=== PATIENT | female | born 1985 | race American Indian/Alaskan Native ===

== ENCOUNTER 2016-09-08 16:24 | Emergency (ER) | payer MEDICAID ==
--- NOTE | 2016-09-08 16:43 | Emergency Department Report ---
Entered by ANMOL THAO, acting as scribe for YULI FINN NP. Chief Complaint: Seizure Stated Complaint: SEIZURE Time Seen by Provider: 09/08/16 16:35 - HPI History of Present Illness: 31 y/o presents to the ED c/o seizures that began last night. Associated symptoms include knee pain and chest pain. Denies fever and chills. Patient states she has 2 seizures last night and her last seizure episode was 1 month ago. Out of seizure meds x 3 days. Taken 2 doses doses today. Denies seizure activity today. No alleviating or aggravating symptoms. NKDA. - ROS Review of Systems: +seizure +knee pain +chest pain -fever -chills - Exam Vital Signs: Vital Signs 09/08/16 16:31 Temperature 99.3 F Pulse Rate 104 H Respiratory 17 Rate Blood Pressure 107/77 O2 Sat by Pulse 100 Oximetry Physical Exam: pt looks well, non toxic. obese alert flat affect slow to respond to questions, but appropriate MSE screening note: Focused history and physical exam performed. Due to findings the following was ordered: labs, xr ED Disposition for MSE Condition: Stable This documentation as recorded by the scribe,ANMOL THAO,accurately reflects the service I personally performed and the decisions made by ,YULI FINN, TOUR MANAGER.
[2016-09-08 17:24] LABS: Hematocrit 40.6 % (30.3-42.9); Hemoglobin 13.1 gm/dl (10.1-14.3); Mean Corpuscular HGB Conc 32 % (30-34); Mean Corpuscular Hemoglobin 28 pg (28-32); Mean Corpuscular Volume 87 fl (79-97); Red Blood Count 4.67 M/mm3 (3.65-5.03); Red Cell Distribution Width 13.9 % (13.2-15.2); White Blood Count 5.3 K/mm3 (4.5-11.0)
[2016-09-08 17:36] LABS: Platelet Count 148 K/mm3 (140-440)
[2016-09-08 17:37] LABS: Alanine Aminotransferase 20 units/L (7-56); Albumin 4.4 g/dL (3.9-5); Albumin/Globulin Ratio 1.3 %; Alkaline Phosphatase 76 units/L (35-129); Anion Gap 23 mmol/L; Blood Urea Nitrogen 16 mg/dL (7-17); Carbon Dioxide 14 mmol/L (22-30); Chloride 105.7 mmol/L (98-107); Glucose 101 mg/dL (65-100); Potassium 3.7 mmol/L (3.6-5.0); Sodium 139 mmol/L (137-145); Total Protein 7.7 g/dL (6.3-8.2)
[2016-09-08 17:52] LABS: Creatine Kinase 2696 units/L (30-135)
[2016-09-08] MEDS ORDERED: NACL 0.9% 1000 ML 1,000 ML IV ONE ×2 (21:46→23:29)
[2016-09-08] MEDS ORDERED: KEPPRA 500 MG in D5W 100 ML IV ONE (21:54)
--- NOTE | 2016-09-08 21:59 | Emergency Department Report ---
ED Seizure HPI - General Chief Complaint: Seizure Stated Complaint: SEIZURE Time Seen by Provider: 09/08/16 16:35 Source: patient Mode of arrival: Ambulatory Limitations: No Limitations - History of Present Illness Initial Comments: PATIENT BROUGHT BY EMS AFTER HAVING SEIZURE TODAY. SHE STATED THAT SHE HAD TWO SEIZURES TODAY MD Complaint: seizure -: This morning Seizure History: known seizure disorder Place: home Possible Precipitating Event: none Associated Symptoms: denies other symptoms - Related Data Home Medications Medication Instructions Recorded Confirmed Last Taken LORazepam [Ativan] 2 mg PO Q12HR PRN 11/25/15 11/25/15 Unknown OXcarbazepine [Trileptal] 600 mg PO HS 11/25/15 11/25/15 Unknown Perphenazine 4 mg PO DAILY 11/25/15 11/25/15 Unknown Topiramate [Topamax] 100 mg PO TID 11/25/15 11/25/15 Unknown diphenhydrAMINE [Benadryl CAP] 50 mg PO HS 11/25/15 11/25/15 Unknown Allergies Allergy/AdvReac Type Severity Reaction Status Date / Time No Known Allergies Allergy Verified 09/08/16 16:27 ED Review of Systems ROS: Stated complaint: SEIZURE Other details as noted in HPI Comment: All other systems reviewed and negative ED Past Medical Hx - Past Medical History Hx Seizures: Yes Hx Psychiatric Treatment: Yes (Pt currently has a therapist and psychiatrist) Additional medical history: Schizophrenia/bipolar. OBESITY - Surgical History Past Surgical History?: No - Social History Smoking Status: Never Smoker Substance Use Type: Prescribed - Medications Home Medications: Home Medications Medication Instructions Recorded Confirmed Last Taken Type LORazepam [Ativan] 2 mg PO Q12HR PRN 11/25/15 11/25/15 Unknown History OXcarbazepine [Trileptal] 600 mg PO HS 11/25/15 11/25/15 Unknown History Perphenazine 4 mg PO DAILY 11/25/15 11/25/15 Unknown History Topiramate [Topamax] 100 mg PO TID 11/25/15 11/25/15 Unknown History diphenhydrAMINE [Benadryl CAP] 50 mg PO HS 11/25/15 11/25/15 Unknown History ED Physical Exam - General Limitations: No Limitations ED Course Vital Signs 09/08/16 09/08/16 09/09/16 16:31 21:40 00:13 Temperature 99.3 F 98 F 99 F Pulse Rate 104 H 97 H 88 Respiratory 17 18 18 Rate Blood Pressure 107/77 Blood Pressure 103/78 131/85 [Left] O2 Sat by Pulse 100 96 99 Oximetry - Reevaluation(s) Reevaluation #1: 09/09/16 01:03 PATIENT OBSERVED IN THE ER , NO FURHER SEIZURE NOTICED. RECEIVED 500 MG OF KEPPRA ED Medical Decision Making - Lab Data Result diagrams: 09/08/16 16:44 09/08/16 16:44 Critical care attestation.: If time is entered above; I have spent that time in minutes in the direct care of this critically ill patient, excluding procedure time. ED Disposition Clinical Impression: Seizure, Rhabdomyolysis Disposition: DC-01 TO HOME OR SELFCARE Is pt being admited?: No Does the pt Need Aspirin: No Condition: Stable Instructions: Epilepsy (ED), Rhabdomyolysis (ED) Referrals: PRIMARY CARE, [Primary Care Provider] - 3-5 Days Time of Disposition: 01:05
[2016-09-09 00:14] VITALS: BP 131/85
[2016-09-09 02:19] LABS: Urine Drugs of Abuse Note Disclamer
[2016-09-09 02:36] LABS: Bilirubin,Urine NEG (Negative); Blood,Urine NEG (Negative); Ketones,Urine 80 mg/dL (Negative); Leukocyte Esterase,Urine TR (Negative); Mucus,Urine 3+ /HPF; Nitrite,Urine NEG (Negative)
--- NOTE | 2016-09-09 07:58 | XRay Report ---
ROUTINE CHEST, TWO VIEWS: HISTORY: Palpitations. The trachea, heart, mediastinal contour, lung [place] and bony thorax are unremarkable. IMPRESSION: Unremarkable chest x-ray.
--- NOTE | 2016-09-09 07:59 | XRay Report ---
RIGHT KNEE, 3 views: History: Right knee pain. Normal bone mineralization. Minimal osteoarthritic spurring is noted in the medial compartment. The lateral compartment and patellofemoral space are within normal limits. No evidence for fracture, bone lesion or large joint effusion. IMPRESSION: Minimal osteoarthritic changes.
== END 2016-09-09 03:03 | disposition home or self-care (01) ==
LOC: ED 16:24
DX: G40.909 Epilepsy, unspecified, not intractable, without status epilepticus (principal); M62.82 Rhabdomyolysis; F20.9 Schizophrenia, unspecified; F31.9 Bipolar disorder, unspecified
CPT/HCPCS: 36415; 71020; 73562; 80053; 80307; 81001; 82550; 84484; 84703; 85025; 93005; 93010; 96365; 96366; 99284; J1953; J7030

== ENCOUNTER 2016-12-06 08:01 | Emergency (ER) | payer MEDICAID ==
[2016-12-06 09:25] LABS: Basophils % (Auto) 0.2 % (0.0-1.8); Eosinophils % (Auto) 0.1 % (0.0-4.3); Hemoglobin 12.1 gm/dl (10.1-14.3); Mean Corpuscular HGB Conc 33 % (30-34); Mean Corpuscular Hemoglobin 28 pg (28-32); Mean Corpuscular Volume 87 fl (79-97); Platelet Count 179 K/mm3 (140-440); Red Blood Count 4.28 M/mm3 (3.65-5.03); Red Cell Distribution Width 14.7 % (13.2-15.2); White Blood Count 7.6 K/mm3 (4.5-11.0)
[2016-12-06 09:42] LABS: Anion Gap 22 mmol/L; Blood Urea Nitrogen 15 mg/dL (7-17); Calcium 9.2 mg/dL (8.4-10.2); Carbon Dioxide 17 mmol/L (22-30); Chloride 108.8 mmol/L (98-107); Glucose 92 mg/dL (65-100); Potassium 4.9 mmol/L (3.6-5.0); Sodium 143 mmol/L (137-145)
[2016-12-06 11:11] LABS: Bilirubin,Urine NEG (Negative); Blood,Urine SM (Negative); Ketones,Urine NEG (Negative); Leukocyte Esterase,Urine NEG (Negative); Mucus,Urine FEW /HPF; Nitrite,Urine NEG (Negative); Protein,Urine <15 mg/dL mg/dL (Negative); Urobilinogen,Urine < 2.0 mg/dL (<2.0)
[2016-12-06 11:15] LABS: WBC,Urine < 1.0 /HPF (0.0-6.0)
[2016-12-06] MEDS ORDERED: ATIVAN IV ONE (11:26)
--- NOTE | 2016-12-06 11:31 | Emergency Department Report ---
ED Seizure HPI - General Chief Complaint: Seizure Stated Complaint: SEIZURE Time Seen by Provider: 12/06/16 11:09 Source: EMS Mode of arrival: Stretcher Limitations: No Limitations - History of Present Illness Initial Comments: Patient is a 31 years old history of seizure brought by EMS after 2 witnessed seizure this morning, patient lived with her friends will does not know what medication she is on. When I examining the patient is still post ictal, she noted that she is in the ER and notices the morning time. Patient answering questions very slowly. Prescription moving around ignoring the instruction not to leave the bed. Per nurse reported that she was told by EMS that patient does have a psychiatric problem also. MD Complaint: seizure -: Sudden Description of Episode: loss of consciousness, tonic-clonic movement, bladder incontinence, post-event confusion Witnessed:: Yes Trauma: No Seizure History: known seizure disorder Place: home Associated Symptoms: denies other symptoms - Related Data Home Medications Medication Instructions Recorded Confirmed Last Taken Perphenazine 16 mg PO DAILY 11/25/15 12/06/16 1 Day Ago Trihexyphenidyl [Artane Tab] 2 mg PO TID 12/06/16 12/06/16 Unknown Previous Rx's Medication Instructions Recorded Last Taken Type OXcarbazepine [Oxtellar XR] 150 mg PO QDAY #30 tab.er.24h 09/19/16 Unknown Rx OXcarbazepine [Oxtellar XR] 600 mg PO DAILY #30 tab.er.24h 09/19/16 Unknown Rx Topiramate [Topamax] 100 mg PO TID #90 tablet 09/19/16 Unknown Rx diphenhydrAMINE [Benadryl CAP] 50 mg PO HS #10 capsule 09/19/16 Unknown Rx Allergies Allergy/AdvReac Type Severity Reaction Status Date / Time No Known Allergies Allergy Verified 09/08/16 16:27 ED Review of Systems ROS: Stated complaint: SEIZURE Other details as noted in HPI Comment: Unobtainable due to pts medical conditions ED Past Medical Hx - Past Medical History Hx Seizures: Yes Hx Psychiatric Treatment: Yes (Pt currently has a therapist and psychiatrist) Additional medical history: Schizophrenia/bipolar. OBESITY - Social History Smoking Status: Unknown if ever smoked - Medications Home Medications: Home Medications Medication Instructions Recorded Confirmed Last Taken Type Perphenazine 16 mg PO DAILY 11/25/15 12/06/16 1 Day Ago History OXcarbazepine [Oxtellar XR] 150 mg PO QDAY #30 tab.er.24h 09/19/16 12/06/16 Unknown Rx OXcarbazepine [Oxtellar XR] 600 mg PO DAILY #30 tab.er.24h 09/19/16 12/06/16 Unknown Rx Topiramate [Topamax] 100 mg PO TID #90 tablet 09/19/16 12/06/16 Unknown Rx diphenhydrAMINE [Benadryl CAP] 50 mg PO HS #10 capsule 09/19/16 12/06/16 Unknown Rx Trihexyphenidyl [Artane Tab] 2 mg PO TID 12/06/16 12/06/16 Unknown History ED Physical Exam - General Limitations: No Limitations General appearance: alert, in no apparent distress, postictal - Head Head exam: Present: atraumatic, normocephalic - Eye Eye exam: Present: normal appearance, PERRL, EOMI Pupils: Present: normal accommodation - ENT ENT exam: Present: normal exam, normal orophraynx, mucous membranes moist - Neck Neck exam: Present: normal inspection, full ROM. Absent: tenderness, meningismus - Respiratory Respiratory exam: Present: normal lung sounds bilaterally. Absent: respiratory distress, wheezes, rales, rhonchi, stridor, chest wall tenderness, accessory muscle use, decreased breath sounds, prolonged expiratory - Cardiovascular Cardiovascular Exam: Present: regular rate, normal rhythm, normal heart sounds - GI/Abdominal GI/Abdominal exam: Present: soft, normal bowel sounds. Absent: distended, tenderness, guarding, rebound, rigid, mass, bruit, pulsatile mass, hernia - Extremities Exam Extremities exam: Present: normal inspection, full ROM, normal capillary refill - Back Exam Back exam: Present: normal inspection, full ROM. Absent: tenderness, CVA tenderness (R), CVA tenderness (L), muscle spasm, paraspinal tenderness, vertebral tenderness - Neurological Exam Neurological exam: Present: altered - Skin Skin exam: Present: warm, intact, normal color ED Course Vital Signs 12/06/16 12/06/16 12/06/16 08:33 08:44 09:00 Temperature 98.0 F Pulse Rate 94 H 84 Respiratory 15 15 Rate Blood Pressure 105/61 98/63 Blood Pressure [Left] O2 Sat by Pulse 88 98 100 Oximetry 12/06/16 12/06/16 12/06/16 09:30 10:00 10:42 Temperature Pulse Rate 94 H 85 82 Respiratory 23 14 20 Rate Blood Pressure 98/63 114/74 114/74 Blood Pressure [Left] O2 Sat by Pulse 99 85 Oximetry 12/06/16 12/06/16 12/06/16 13:00 13:30 14:00 Temperature Pulse Rate Respiratory Rate Blood Pressure 114/74 93/56 93/56 Blood Pressure [Left] O2 Sat by Pulse 100 100 96 Oximetry 12/06/16 12/06/16 12/06/16 14:30 15:00 15:58 Temperature Pulse Rate 97 H Respiratory 18 Rate Blood Pressure 107/70 102/61 Blood Pressure 100/64 [Left] O2 Sat by Pulse 98 99 98 Oximetry - Reevaluation(s) Reevaluation #1: 12/06/16 18:17 Patient is awake alert and talking to her sister who just came into the ER. Her sister is stated that this is her usual mental status she is in a senior care with another pupils she forget her medication sometimes. Her sister want to take home and he stated that she will make sure that she will get her medication every day. Patient will be discharged with her sister. ED Medical Decision Making - Lab Data Result diagrams: 12/06/16 09:04 12/06/16 09:04 - Medical Decision Making No seizure observed in the ER. Discharged patient with her sister. Critical care attestation.: If time is entered above; I have spent that time in minutes in the direct care of this critically ill patient, excluding procedure time. ED Disposition Clinical Impression: Seizure Disposition: DC-01 TO HOME OR SELFCARE Is pt being admited?: No Condition: Stable Instructions: Epilepsy (ED) Referrals: PRIMARY CARE, [Primary Care Provider] - 3-5 Days
[2016-12-06] MEDS ORDERED: KEPPRA PO ONE (12:55)
[2016-12-06 13:11] LABS: Urine Drugs of Abuse Note Disclamer
[2016-12-06 18:36] VITALS: BP 113/72
== END 2016-12-06 18:35 | disposition home or self-care (01) ==
LOC: ED 08:01
DX: G40.909 Epilepsy, unspecified, not intractable, without status epilepticus (principal)
CPT/HCPCS: 36415; 80048; 80307; 81001; 81025; 82962; 85025; 96374; 99285; G0480; J2060; 80320

== ENCOUNTER 2017-05-22 04:54 | Inpatient (IN) | payer MEDICAID ==
[2017-05-22 05:50] LABS: Hematocrit 35.1 % (30.3-42.9); Hemoglobin 11.4 gm/dl (10.1-14.3); Mean Corpuscular HGB Conc 33 % (30-34); Mean Corpuscular Hemoglobin 28 pg (28-32); Mean Corpuscular Volume 86 fl (79-97); Platelet Count 191 K/mm3 (140-440); Red Cell Distribution Width 14.1 % (13.2-15.2)
[2017-05-22 06:01] LABS: BUN/Creatinine Ratio 16; Blood Urea Nitrogen 11 mg/dL (7-17); Calcium 8.7 mg/dL (8.4-10.2); Hemolysis Index 37
[2017-05-22] MEDS ORDERED: ATIVAN ONE (06:39)
[2017-05-22] MEDS ORDERED: ATIVAN IV ONE (06:42)
[2017-05-22] MEDS ORDERED: NACL 0.9% 1000 ML 1,000 ML ONE (06:43)
[2017-05-22] MEDS ORDERED: NACL 0.9% 1000 ML 1,000 ML IV ONE ×2 (06:43→20:36)
[2017-05-22] MEDS ORDERED: KEPPRA 1,000 MG/NS 0.75% 100ML 1,000 MG/100 ML BAG IV ONE ×2 (06:44→06:45)
[2017-05-22 07:23] LABS: Basophils % (Auto) 0.4 % (0.0-1.8); Eosinophils % (Auto) 0.6 % (0.0-4.3); Hematocrit 36.7 % (30.3-42.9); Hemoglobin 11.2 gm/dl (10.1-14.3); Lymphocytes # (Auto) 1.5 K/mm3 (1.2-5.4); Lymphocytes % (Auto) 24.9 % (13.4-35.0); Mean Corpuscular HGB Conc 31 % (30-34); Mean Corpuscular Hemoglobin 27 pg (28-32); Mean Corpuscular Volume 88 fl (79-97); Monocytes # (Auto) 0.6 K/mm3 (0.0-0.8); Monocytes % (Auto) 10.5 % (0.0-7.3); Platelet Count 202 K/mm3 (140-440); Red Blood Count 4.18 M/mm3 (3.65-5.03); Red Cell Distribution Width 14.7 % (13.2-15.2)
[2017-05-22 07:31] LABS: Alanine Aminotransferase 15 units/L (7-56); Albumin 3.8 g/dL (3.9-5); BUN/Creatinine Ratio 12; Blood Urea Nitrogen 11 mg/dL (7-17); Calcium 8.9 mg/dL (8.4-10.2); Hemolysis Index 40
[2017-05-22 08:02] LABS: Bacteria,Urine 1+ /HPF (Negative); Bilirubin,Urine NEG (Negative); Blood,Urine NEG (Negative); Color,Urine Yellow (Yellow); Mucus,Urine FEW /HPF; Urobilinogen,Urine < 2.0 mg/dL (<2.0)
[2017-05-22 08:08] LABS: Amphetamine Screen,Urine PRESUMPTIVE NEGATIVE; Benzodiazepines Screen,Urine PRESUMPTIVE NEGATIVE; Cannabinoid Screen,Urine PRESUMPTIVE NEGATIVE; Cocaine Screen,Urine PRESUMPTIVE NEGATIVE; Methadone Screen,Urine PRESUMPTIVE NEGATIVE; Opiate Screen,Urine PRESUMPTIVE NEGATIVE
[2017-05-22 09:26] LABS: Bacteria,Urine 1+ /HPF (Negative); Bilirubin,Urine NEG (Negative); Blood,Urine NEG (Negative); Color,Urine Yellow (Yellow); Mucus,Urine FEW /HPF; Urobilinogen,Urine < 2.0 mg/dL (<2.0)
--- NOTE | 2017-05-22 09:27 | Cat Scan Report ---
CT scan of head without IV contrast: History: Seizure. Findings: Ventricles are normal in size and midline in location. No evidence of acute ischemic, hemorrhage or mass. No extra-axial fluid collection. Normal brainstem and cerebellum. Normal sinuses and mastoid air cells. Impression: No acute intracranial abnormality.
--- NOTE | 2017-05-22 11:08 | Emergency Department Report ---
ED Seizure HPI - General Chief Complaint: Seizure Stated Complaint: SEIZURE Time Seen by Provider: 05/22/17 06:46 Source: EMS Mode of arrival: Stretcher Limitations: No Limitations - History of Present Illness Initial Comments: pt. apparently had 2 seizure episodes at home and 911 were called. when they got there she was postictal.while in the ER she had another seizure which was tonic clonic lasted about 2 minutes. I gave her 2mg of ativan and this controlled her seizure. when she woke up she says she only takes topiramate for her seizure. Complaint: seizure Onset/Timin (hours ) -: Gradual Description of Episode: tonic-clonic movement Duration of Episode: 2 -: minutes(s) Witnessed:: Yes Trauma: No Seizure History: known seizure disorder Place: home, other (ER) Possible Precipitating Event: none Associated Symptoms: denies other symptoms Treatments Prior to Arrival: none - Related Data Home Medications Medication Instructions Recorded Confirmed Last Taken Perphenazine 16 mg PO DAILY 11/25/15 05/22/17 1 Day Ago ~09/17/16 Trihexyphenidyl [Artane Tab] 2 mg PO TID 12/06/16 05/22/17 Unknown LORazepam [Ativan] 1 mg PO BID 05/22/17 05/22/17 Unknown Topiramate [Topamax] 100 mg PO BID 05/22/17 05/22/17 Unknown Previous Rx's Medication Instructions Recorded Last Taken Type OXcarbazepine [Oxtellar XR] 150 mg PO QDAY #30 tab.er.24h 09/19/16 Unknown Rx OXcarbazepine [Oxtellar XR] 600 mg PO DAILY #30 tab.er.24h 09/19/16 Unknown Rx diphenhydrAMINE [Benadryl CAP] 50 mg PO HS #10 capsule 09/19/16 Unknown Rx Allergies Allergy/AdvReac Type Severity Reaction Status Date / Time No Known Allergies Allergy Verified 09/08/16 16:27 ED Review of Systems ROS: Stated complaint: SEIZURE Other details as noted in HPI Comment: All other systems reviewed and negative ED Past Medical Hx - Past Medical History Previous Medical History?: Yes Hx Seizures: Yes Hx Psychiatric Treatment: Yes (Pt currently has a therapist and psychiatrist) Additional medical history: Schizophrenia/bipolar. OBESITY - Social History Smoking Status: Never Smoker Substance Use Type: Prescribed - Medications Home Medications: Home Medications Medication Instructions Recorded Confirmed Last Taken Type Perphenazine 16 mg PO DAILY 11/25/15 05/22/17 1 Day Ago History ~09/17/16 OXcarbazepine [Oxtellar XR] 150 mg PO QDAY #30 tab.er.24h 09/19/16 05/22/17 Unknown Rx OXcarbazepine [Oxtellar XR] 600 mg PO DAILY #30 tab.er.24h 09/19/16 05/22/17 Unknown Rx diphenhydrAMINE [Benadryl CAP] 50 mg PO HS #10 capsule 09/19/16 05/22/17 Unknown Rx Trihexyphenidyl [Artane Tab] 2 mg PO TID 12/06/16 05/22/17 Unknown History LORazepam [Ativan] 1 mg PO BID 05/22/17 05/22/17 Unknown History Topiramate [Topamax] 100 mg PO BID 05/22/17 05/22/17 Unknown History ED Physical Exam - General Limitations: No Limitations General appearance: alert, in no apparent distress - Head Head exam: Present: atraumatic, normocephalic - Eye Eye exam: Present: normal appearance - ENT ENT exam: Present: mucous membranes moist - Neck Neck exam: Present: normal inspection - Respiratory Respiratory exam: Present: normal lung sounds bilaterally. Absent: respiratory distress - Cardiovascular Cardiovascular Exam: Present: regular rate, normal rhythm. Absent: systolic murmur, diastolic murmur, rubs, gallop - GI/Abdominal GI/Abdominal exam: Present: soft, normal bowel sounds. Absent: tenderness - Rectal Rectal exam: Present: deferred - Extremities Exam Extremities exam: Present: normal inspection - Back Exam Back exam: Present: normal inspection - Neurological Exam Neurological exam: Present: alert, oriented X3 - Psychiatric Psychiatric exam: Present: normal affect, normal mood - Skin Skin exam: Present: warm, dry, intact, normal color. Absent: rash ED Course Vital Signs 05/22/17 05/22/17 05/22/17 05:08 05:15 05:17 Temperature 98.7 F Pulse Rate 93 H 99 H Respiratory 18 13 Rate Blood Pressure 96/57 99/60 96/57 Blood Pressure [Right] O2 Sat by Pulse 97 97 Oximetry 05/22/17 05/22/17 05/22/17 05:30 05:46 06:00 Temperature Pulse Rate 90 87 83 Respiratory 18 9 L 6 L Rate Blood Pressure 99/60 97/56 103/59 Blood Pressure [Right] O2 Sat by Pulse 100 100 100 Oximetry 05/22/17 05/22/17 05/22/17 06:16 06:30 06:46 Temperature Pulse Rate 83 80 126 H Respiratory 16 16 26 H Rate Blood Pressure 103/59 96/60 116/70 Blood Pressure [Right] O2 Sat by Pulse 100 100 99 Oximetry 05/22/17 05/22/17 08:48 08:54 Temperature 98.0 F Pulse Rate 86 Respiratory 20 18 Rate Blood Pressure Blood Pressure 108/66 [Right] O2 Sat by Pulse 100 100 Oximetry ED Medical Decision Making - Lab Data Result diagrams: 05/22/17 06:58 05/22/17 06:58 - Medical Decision Making I SPOKE TO dR Leach AND HE SAID HE WILL SEE THE PATIENT IN CONSULT. I spoke to Dr Medina who said to admit to DR ISAAC Critical care attestation.: If time is entered above; I have spent that time in minutes in the direct care of this critically ill patient, excluding procedure time. ED Disposition Clinical Impression: Seizure Disposition: DC-09 OP ADMIT IP TO THIS HOSP Is pt being admited?: Yes Does the pt Need Aspirin: No Condition: Stable Referrals: PRIMARY CARE, [Primary Care Provider] - 3-5 Days Time of Disposition: 11:23 Print Language: CITIZEN OF [place]
[2017-05-22] MEDS ORDERED: ATIVAN IV PRN (13:25)
--- NOTE | 2017-05-22 13:32 | History and Physical Report ---
History of Present Illness Date of examination: 05/22/17 Date of admission: 05/22/17 11:23 Chief complaint: Recurrent seizures History of present illness: Patient is a 32-year-old woman with a history of bipolar disorder, schizophrenia and seizure disorder presents with recurrent seizures 2. Currently patient is somnolent and give limited history. She has been loaded with 1 g IV Keppra Past medical history: As HPI Past surgical history: She denies falls back to sleep Social history: She denies smoking, alcohol abuse or drug abuse Family history: Accident she denies any diabetes hypertension ROS Constitutional: denies: fever ENT: denies: throat or neck pain Respiratory: denies: cough, shortness of breath Cardiovascular: denies: chest pain Endocrine: denies unexplained weight loss or gain Gastrointestinal: denies: abdominal pain, nausea Genitourinary: denies: dysuria Rectal: denies no incontinence, no bleeding, no itching, no discharge Musculoskeletal: denies swelling, myaglia, muscle weakness Skin: denies: rash Neurological: denies: headache Hematological/Lymphatic: denies: easy bleeding or easy bruising Allergic/Immunologic: no urticaria, no allergic rhinitis, no anaphylaxis Psych: denies sadness or hopelessness, SI/HI Medications and Allergies Allergies Allergy/AdvReac Type Severity Reaction Status Date / Time No Known Allergies Allergy Verified 09/08/16 16:27 Home Medications Medication Instructions Recorded Confirmed Last Taken Type Perphenazine 16 mg PO DAILY 11/25/15 05/22/17 1 Day Ago History ~09/17/16 OXcarbazepine [Oxtellar XR] 150 mg PO QDAY #30 tab.er.24h 09/19/16 05/22/17 Unknown Rx OXcarbazepine [Oxtellar XR] 600 mg PO DAILY #30 tab.er.24h 09/19/16 05/22/17 Unknown Rx diphenhydrAMINE [Benadryl CAP] 50 mg PO HS #10 capsule 09/19/16 05/22/17 Unknown Rx Trihexyphenidyl [Artane Tab] 2 mg PO TID 12/06/16 05/22/17 Unknown History LORazepam [Ativan] 1 mg PO BID 05/22/17 05/22/17 Unknown History Topiramate [Topamax] 100 mg PO BID 05/22/17 05/22/17 Unknown History Active Meds: Active Medications Diphenhydramine HCl (Benadryl) 50 mg PO HS MANUELA Levetiracetam (Keppra) 500 mg PO BID MANUELA Lorazepam (Ativan) 0.5 mg IV Q4H PRN PRN Reason: Seizures Miscellaneous Medication (Oxcarbazepine [Oxtellar Xr]) 150 mg PO QDAY MANUELA Miscellaneous Medication (Oxcarbazepine [Oxtellar Xr]) 600 mg PO DAILY MANUELA Perphenazine (Trilafon) 16 mg PO DAILY MANUELA Topiramate (Topamax) 100 mg PO BID MANUELA Trihexyphenidyl HCl (Artane) 2 mg PO TID MANUELA Exam - Physical Exam Narrative exam: GEN: WDWN, NAD, AWAKE, ALERT, lethargic and sleepy but easily arousable HEENT: NCAT, EOMI, PERRL, OP Clear NECK: supple, no adenopathy, no thyromegaly, no JVD CVS/HEART: RRR, NORMAL S1S2, pulses present bilaterally CHEST/LUNGS: CTA B, Symmetrical chest expansion, good air entry bilaterally GI/Abdomen: soft, NTND, good bowel sounds, no guarding or rebound /Bladder: no suprapubic tenderness, no CVA or paraspinal tenderness EXT/Skin: no c/c/e, no obvious rash MSK: FROM x 4 Neuro: CN 2-12 grossly intact, no new focal deficits Psych: calm - Constitutional Vitals: Temp Pulse Resp BP Pulse Ox 98.0 F 86 18 108/66 100 05/22/17 08:54 05/22/17 08:54 05/22/17 08:54 05/22/17 08:54 05/22/17 08:54 Results - Labs CBC & Chem 7: 05/22/17 06:58 05/22/17 06:58 Labs: Abnormal lab results 05/22/17 05/22/17 05/22/17 Range/Units 05:35 05:36 05:36 WBC 4.1 L (4.5-11.0) K/mm3 MCH (28-32) pg [place] % (Auto) (0.0-7.3) % Carbon Dioxide 20 L (22-30) mmol/L Glucose 114 H (65-100) mg/dL POC Glucose 123 H (70-105) Albumin (3.9-5) g/dL Urine WBC (Auto) (0.0-6.0) /HPF 05/22/17 05/22/17 05/22/17 Range/Units 06:58 06:58 07:25 WBC (4.5-11.0) K/mm3 MCH 27 L (28-32) pg [place] % (Auto) 10.5 H (0.0-7.3) % Carbon Dioxide 11 L D (22-30) mmol/L Glucose 118 H (65-100) mg/dL POC Glucose (70-105) Albumin 3.8 L (3.9-5) g/dL Urine WBC (Auto) 7.0 H (0.0-6.0) /HPF Assessment and Plan Patient is a 32-year-old woman with a history of bipolar disorder, schizophrenia and seizure disorder presents with recurrent seizures 2. Currently patient is somnolent and give limited history. She has been loaded with 1 g IV Keppra. She gives one word answers and falls back to sleep. -Acute mental status, post-icteral acute encephalopathy: supportative care -Status epilepticus: loaded with keppra, continue keppra, consulted neurologist -Bipolar disorder, ?schizoaffective: consult Psych for medication management
[2017-05-22] MEDS: ARTANE PO SCH ×2 (14:04→21:05)
--- NOTE | 2017-05-22 15:55 | Consultation ---
History of Present Illness Consult date: 05/22/17 History of present illness: patient seen on neuro consult discussed with ED earlier plan w/u will check MRI and EEG agree with keppra use will follow up Medications and Allergies Allergies Allergy/AdvReac Type Severity Reaction Status Date / Time No Known Allergies Allergy Verified 09/08/16 16:27 Home Medications Medication Instructions Recorded Confirmed Last Taken Type Perphenazine 16 mg PO DAILY 11/25/15 05/22/17 1 Day Ago History ~09/17/16 OXcarbazepine [Oxtellar XR] 150 mg PO QDAY #30 tab.er.24h 09/19/16 05/22/17 Unknown Rx OXcarbazepine [Oxtellar XR] 600 mg PO DAILY #30 tab.er.24h 09/19/16 05/22/17 Unknown Rx diphenhydrAMINE [Benadryl CAP] 50 mg PO HS #10 capsule 09/19/16 05/22/17 Unknown Rx Trihexyphenidyl [Artane Tab] 2 mg PO TID 12/06/16 05/22/17 Unknown History LORazepam [Ativan] 1 mg PO BID 05/22/17 05/22/17 Unknown History Topiramate [Topamax] 100 mg PO BID 05/22/17 05/22/17 Unknown History Active Meds: Active Medications Diphenhydramine HCl (Benadryl) 50 mg PO HS MANUELA Levetiracetam (Keppra) 500 mg PO BID MANUELA Lorazepam (Ativan) 0.5 mg IV Q4H PRN PRN Reason: Seizures Miscellaneous Medication (Oxcarbazepine [Oxtellar Xr]) 150 mg PO QDAY MANUELA Miscellaneous Medication (Oxcarbazepine [Oxtellar Xr]) 600 mg PO DAILY MANUELA Perphenazine (Trilafon) 16 mg PO DAILY MANUELA Topiramate (Topamax) 100 mg PO BID MANUELA Trihexyphenidyl HCl (Artane) 2 mg PO TID [facility] Last Admin: 05/22/17 14:04 Dose: 2 mg Physical Examination - Vital Signs Vital Signs: Vital Signs BP 96/57 05/22/17 05:08 Results - Laboratory Findings CBC and BMP: 05/22/17 06:58 05/22/17 06:58 Abnormal Lab Findings: Abnormal Labs 05/22/17 05/22/17 05/22/17 05:35 05:36 05:36 WBC 4.1 L MCH [place] % (Auto) Carbon Dioxide 20 L Glucose 114 H POC Glucose 123 H Albumin Urine WBC (Auto) 05/22/17 05/22/17 05/22/17 06:58 06:58 07:25 WBC MCH 27 L [place] % (Auto) 10.5 H Carbon Dioxide 11 L D Glucose 118 H POC Glucose Albumin 3.8 L Urine WBC (Auto) 7.0 H
[2017-05-22] MEDS: TOPAMAX PO SCH (21:05)
[2017-05-22] MEDS ORDERED: BENADRYL PO SCH (22:00)
[2017-05-23 08:11] LABS: Hematocrit 36.5 % (30.3-42.9); Hemoglobin 11.8 gm/dl (10.1-14.3); Mean Corpuscular HGB Conc 32 % (30-34); Mean Corpuscular Hemoglobin 28 pg (28-32); Mean Corpuscular Volume 86 fl (79-97); Platelet Count 181 K/mm3 (140-440); Red Blood Count 4.23 M/mm3 (3.65-5.03); Red Cell Distribution Width 14.3 % (13.2-15.2)
[2017-05-23 08:34] LABS: BUN/Creatinine Ratio 13; Blood Urea Nitrogen 10 mg/dL (7-17); Calcium 8.5 mg/dL (8.4-10.2); Hemolysis Index 1
[2017-05-23] MEDS: ARTANE PO SCH (09:51)
[2017-05-23] MEDS: TOPAMAX PO SCH (09:52)
[2017-05-23] MEDS ORDERED: TRILAFON PO SCH (10:00)
[2017-05-23] MEDS ORDERED: OXCARBAZEPINE 150 MG PO SCH (10:00)
[2017-05-23] MEDS ORDERED: OXCARBAZEPINE 600 MG PO SCH (10:00)
[2017-05-23] MEDS ORDERED: KEPPRA PO SCH (10:00)
--- NOTE | 2017-05-23 12:12 | Discharge Summary ---
Providers - Providers Date of Admission: 05/22/17 11:23 Date of discharge: 05/23/17 Attending physician: VINITA FLORES 05/22/17 13:18 Consult to Physician [CONS] Routine Comment: Consulting Provider: EDINSON ABERNATHY Physician Instructions: Reason For Exam: Recurrent seizures 05/22/17 13:35 Consult to Mental Health [CONS] Routine Reason For Exam: Medication management Place consult to:: Ned Fleming MD Notified:: psych Phone number called:: [phone] Was contact made?: No Time called:: 15:26 Comment:: added to list Primary care physician: [employer]PER Hospitalization Condition: Stable Hospital course: Patient is a 32-year-old woman with a history of bipolar disorder, schizophrenia and seizure disorder presents with recurrent seizures 2. Currently patient is somnolent and give limited history. She has been loaded with 1 g IV Keppra. She gives one word answers and falls back to sleep. -Acute mental status, post-icteral acute encephalopathy: supportative care -Status epilepticus: loaded with keppra, continue keppra, consulted neurologist -Bipolar disorder, ?schizoaffective: consult Psych for medication management patient fully a/o x 3, she admits to noncompliance with sz medication, she recently has EEG and doesn't want another or MRI, maybe this is why Neurologist , Dr. Abernathy didn't order, I will discharge home. She has a outpatient Neurologist but she doesn't remember his name. Counseling done on compliance. Disposition: DC-01 TO HOME OR SELFCARE Time spent for discharge: 35 minutes Core Measure Documentation - Palliative Care Palliative Care/ Comfort Measures: Not Applicable - Core Measures Any of the following diagnoses?: none - VTE Discharge Requirements Deep Vein Thrombosis/Pulmonary Embolism Present on Admission: No Has pt received <5 days of overlap therapy or INR<2.0: No Anticoagulant overlap therapy prescribed at discharge: No Contraindication No Overlap Therapy order at DC: Not Indicated Exam - Physical Exam Narrative exam: GEN: WDWN, NAD, AWAKE, ALERT, lethargic and sleepy but easily arousable HEENT: NCAT, EOMI, PERRL, OP Clear NECK: supple, no adenopathy, no thyromegaly, no JVD CVS/HEART: RRR, NORMAL S1S2, pulses present bilaterally CHEST/LUNGS: CTA B, Symmetrical chest expansion, good air entry bilaterally GI/Abdomen: soft, NTND, good bowel sounds, no guarding or rebound /Bladder: no suprapubic tenderness, no CVA or paraspinal tenderness EXT/Skin: no c/c/e, no obvious rash MSK: FROM x 4 Neuro: CN 2-12 grossly intact, no new focal deficits Psych: calm - Constitutional Vitals: Temp Pulse Resp BP Pulse Ox 98.6 F 77 17 104/54 100 05/23/17 08:48 05/23/17 10:00 05/23/17 10:00 05/23/17 08:48 05/23/17 08:48 Plan Activity: no driving until cleared by PCP, other (no strenous activity until cleared by pcp) Diet: regular Additional Instructions: She is requesting security engineer referral for abnormal periods. Follow up with: PRIMARY MD ELÍAS [Primary Care Provider] - 3-5 Days CHET TAMEZ MD [Staff Physician] - 7 Days Prescriptions: levETIRAcetam [Keppra TAB] 500 mg PO BID #60 tablet
[2017-05-23 12:44] VITALS: BP 102/69
== END 2017-05-23 14:23 | disposition home or self-care (01) | DRG 101 ==
LOC: ED 04:54 → 4A 11:23
PROVIDERS: ADMIT Internal Medicine; ATTEND Internal Medicine
DX: G40.901 Epilepsy, unspecified, not intractable, with status epilepticus (principal); F31.9 Bipolar disorder, unspecified; F20.9 Schizophrenia, unspecified; E66.9 Obesity, unspecified; Z91.19 Patient's noncompliance with other medical treatment and regimen; Z71.9 Counseling, unspecified; Z68.36 Body mass index [BMI] 36.0-36.9, adult; Z79.899 Other long term (current) drug therapy
CPT/HCPCS: 36415; 70450; 80048; 80053; 80307; 81001; 82962; 83735; 84100; 85025; 85027; J1953; J2060; J7030

== ENCOUNTER 2017-07-15 07:19 | Emergency (ER) | payer MEDICAID ==
[2017-07-15] MEDS ORDERED: KEPPRA 1,000 MG/NS 0.75% 100ML 1,000 MG/100 ML BAG IV ONE ×2 (08:29→19:22)
[2017-07-15 09:00] LABS: Basophils % (Auto) 0.3 % (0.0-1.8); Eosinophils % (Auto) 0.3 % (0.0-4.3); Hematocrit 38.8 % (30.3-42.9); Hemoglobin 12.2 gm/dl (10.1-14.3); Lymphocytes # (Auto) 0.6 K/mm3 (1.2-5.4); Lymphocytes % (Auto) 11.6 % (13.4-35.0); Mean Corpuscular HGB Conc 32 % (30-34); Mean Corpuscular Hemoglobin 28 pg (28-32); Mean Corpuscular Volume 88 fl (79-97); Monocytes # (Auto) 0.3 K/mm3 (0.0-0.8); Monocytes % (Auto) 5.3 % (0.0-7.3); Red Blood Count 4.43 M/mm3 (3.65-5.03); Red Cell Distribution Width 14.6 % (13.2-15.2)
[2017-07-15 09:18] LABS: Alanine Aminotransferase 17 units/L (7-56); Albumin 3.8 g/dL (3.9-5); BUN/Creatinine Ratio 16; Blood Urea Nitrogen 11 mg/dL (7-17); Calcium 8.9 mg/dL (8.4-10.2); Hemolysis Index 42
--- NOTE | 2017-07-15 09:25 | Emergency Department Report ---
ED Seizure HPI - General Chief Complaint: Seizure Stated Complaint: SEIZURE Time Seen by Provider: 07/15/17 08:55 Source: family, EMS Mode of arrival: Stretcher Limitations: No Limitations - History of Present Illness Initial Comments: He is a 32-year-old female that presents emergency room with complaints of seizures 2. Patient states she is a known seizure history and is compliant with all of her medications. Patient denies chest pain shortness of breath. Patient denies confusion or headache. Patient denies injury. Patient denies other physical symptoms. Patient has a note 4 this time. Patient was brought in by EMS. Patient states she had 2 seizures this morning as she woke up. MD Complaint: seizure -: Sudden Description of Episode: tonic-clonic movement Witnessed:: No Trauma: No Seizure History: known seizure disorder Place: home Possible Precipitating Event: none Associated Symptoms: denies: chest pain, confusion, cough, diaphoresis, fever/ chills, loss of appetite, malaise, rash, shortness of breath, syncope, weakness , tongue injury, shoulder dislocation Treatments Prior to Arrival: none - Related Data Home Medications Medication Instructions Recorded Confirmed Last Taken Perphenazine 16 mg PO DAILY 11/25/15 05/22/17 1 Day Ago ~09/17/16 Trihexyphenidyl [Artane] 2 mg PO TID 12/06/16 05/22/17 Unknown LORazepam [Ativan] 1 mg PO BID 05/22/17 05/22/17 Unknown Topiramate [Topamax] 100 mg PO BID 05/22/17 05/22/17 Unknown Previous Rx's Medication Instructions Recorded Last Taken Type OXcarbazepine [Oxtellar XR] 150 mg PO QDAY #30 tab.er.24h 09/19/16 Unknown Rx OXcarbazepine [Oxtellar XR] 600 mg PO DAILY #30 tab.er.24h 09/19/16 Unknown Rx diphenhydrAMINE [Benadryl CAP] 50 mg PO HS #10 capsule 09/19/16 Unknown Rx levETIRAcetam [Keppra TAB] 500 mg PO BID #60 tablet 05/23/17 Unknown Rx Allergies Allergy/AdvReac Type Severity Reaction Status Date / Time No Known Allergies Allergy Verified 09/08/16 16:27 ED Review of Systems ROS: Stated complaint: SEIZURE Other details as noted in HPI Constitutional: denies: chills, fever Eyes: denies: eye pain, eye discharge, vision change ENT: denies: ear pain, throat pain Respiratory: denies: cough, shortness of breath, wheezing Cardiovascular: denies: chest pain, palpitations Endocrine: no symptoms reported Gastrointestinal: denies: abdominal pain, nausea, diarrhea Genitourinary: denies: urgency, dysuria, discharge Musculoskeletal: denies: back pain, joint swelling, arthralgia Skin: denies: rash, lesions Neurological: denies: headache, weakness, paresthesias Psychiatric: denies: anxiety, depression Hematological/Lymphatic: denies: easy bleeding, easy bruising ED Past Medical Hx - Past Medical History Previous Medical History?: Yes Hx Seizures: Yes Hx Psychiatric Treatment: Yes (Pt currently has a therapist and psychiatrist) Additional medical history: Schizophrenia/bipolar. OBESITY - Surgical History Past Surgical History?: No - Family History Family history: hypertension - Social History Smoking Status: Never Smoker Substance Use Type: None - Medications Home Medications: Home Medications Medication Instructions Recorded Confirmed Last Taken Type Perphenazine 16 mg PO DAILY 11/25/15 05/22/17 1 Day Ago History ~09/17/16 OXcarbazepine [Oxtellar XR] 150 mg PO QDAY #30 tab.er.24h 09/19/16 05/22/17 Unknown Rx OXcarbazepine [Oxtellar XR] 600 mg PO DAILY #30 tab.er.24h 09/19/16 05/22/17 Unknown Rx diphenhydrAMINE [Benadryl CAP] 50 mg PO HS #10 capsule 09/19/16 05/22/17 Unknown Rx Trihexyphenidyl [Artane] 2 mg PO TID 12/06/16 05/22/17 Unknown History LORazepam [Ativan] 1 mg PO BID 05/22/17 05/22/17 Unknown History Topiramate [Topamax] 100 mg PO BID 05/22/17 05/22/17 Unknown History levETIRAcetam [Keppra TAB] 500 mg PO BID #60 tablet 05/23/17 Unknown Rx ED Physical Exam - General Limitations: No Limitations General appearance: alert, in no apparent distress - Head Head exam: Present: atraumatic, normocephalic - Eye Eye exam: Present: normal appearance - ENT ENT exam: Present: mucous membranes moist - Neck Neck exam: Present: normal inspection - Respiratory Respiratory exam: Present: normal lung sounds bilaterally. Absent: respiratory distress - Cardiovascular Cardiovascular Exam: Present: regular rate, normal rhythm. Absent: systolic murmur, diastolic murmur, rubs, gallop - GI/Abdominal GI/Abdominal exam: Present: soft, normal bowel sounds - Extremities Exam Extremities exam: Present: normal inspection - Back Exam Back exam: Present: normal inspection - Neurological Exam Neurological exam: Present: alert, oriented X3 - Psychiatric Psychiatric exam: Present: normal affect, normal mood - Skin Skin exam: Present: warm, dry, intact, normal color. Absent: rash ED Course Vital Signs 07/15/17 07/15/17 08:16 12:56 Temperature 98.1 F 98.3 F Pulse Rate 92 H 89 Respiratory 18 18 Rate Blood Pressure 110/58 98/48 O2 Sat by Pulse 99 97 Oximetry - Reevaluation(s) Reevaluation #1: Patient refused IV and medications. Patient states she wants to leave. Risks explained to patient. Patient voiced understanding of rest. Patient signed AMA. Patient is A and O 4. 07/15/17 09:25 ED Medical Decision Making - Lab Data Result diagrams: 07/15/17 08:45 07/15/17 08:45 Critical care attestation.: If time is entered above; I have spent that time in minutes in the direct care of this critically ill patient, excluding procedure time. ED Disposition Clinical Impression: Seizure Disposition: DC-07 LEFT AGAINST MED ADVICE Is pt being admited?: No Does the pt Need Aspirin: No Condition: Stable Instructions: Epilepsy (ED) Additional Instructions: Patient follow up with primary care in 3-5 days. Patient return to ER if condition worsens. Patient to rest. Patient to all medications. Time of Disposition: 09:26
[2017-07-15 09:55] LABS: Platelet Count 132 K/mm3 (140-440)
[2017-07-15] MEDS ORDERED: TOPAMAX PO STA (19:22)
--- NOTE | 2017-07-15 19:22 | Emergency Department Report ---
ED General Adult HPI - General Chief complaint: Seizure Stated complaint: SEIZURE Time Seen by Provider: 07/15/17 08:55 Source: patient, EMS (ems notes not available at time of chart dictation), RN notes reviewed, old records reviewed Mode of arrival: Stretcher Limitations: No Limitations - History of Present Illness Initial comments: This is a 32-year-old female who was previously unknown to this provider. She reports a possible history of seizure disorder. She reports that she currently takes topiramate, 100 mg twice daily, and Keppra, 500 mg each night. Patient was seen earlier on today for seizure. Patient reports 3 seizures last night. She has no complaints at this time. She indicates compliance with her medications. Patient was seen earlier on today for similar complaints, it was recommended that she receive IV antiepileptic drugs which initially declined. Patient is now requesting IV medication. She denies headache, neck pain, chest pain, abdominal pain, shortness of breath, urinary symptoms. The patient further reports that she is not . Patient reports 3 seizures last night. -: Sudden Consistency: now resolved Improves with: none Worsens with: none Associated Symptoms: denies other symptoms, seizure, other (as per history of present illness). denies: confusion, chest pain, cough, diaphoresis, fever/ chills, headaches, loss of appetite, malaise, nausea/vomiting, rash, shortness of breath, syncope, weakness - Related Data Home Medications Medication Instructions Recorded Confirmed Last Taken Perphenazine 16 mg PO DAILY 11/25/15 05/22/17 1 Day Ago ~09/17/16 Trihexyphenidyl [Artane] 2 mg PO TID 12/06/16 05/22/17 Unknown LORazepam [Ativan] 1 mg PO BID 05/22/17 05/22/17 Unknown Topiramate [Topamax] 100 mg PO BID 05/22/17 05/22/17 Unknown Previous Rx's Medication Instructions Recorded Last Taken Type OXcarbazepine [Oxtellar XR] 150 mg PO QDAY #30 tab.er.24h 09/19/16 Unknown Rx OXcarbazepine [Oxtellar XR] 600 mg PO DAILY #30 tab.er.24h 09/19/16 Unknown Rx diphenhydrAMINE [Benadryl CAP] 50 mg PO HS #10 capsule 09/19/16 Unknown Rx Topiramate [Topamax] 100 mg PO BID #60 tablet 07/15/17 Unknown Rx levETIRAcetam [Keppra TAB] 500 mg PO BID #60 tablet 07/15/17 Unknown Rx Allergies Allergy/AdvReac Type Severity Reaction Status Date / Time No Known Allergies Allergy Verified 09/08/16 16:27 ED Review of Systems ROS: Stated complaint: SEIZURE Other details as noted in HPI Comment: All other systems reviewed and negative Constitutional: denies: chills, fever Eyes: denies: eye pain, eye discharge, vision change ENT: denies: ear pain, throat pain Respiratory: denies: cough, shortness of breath, wheezing Cardiovascular: denies: chest pain, palpitations Endocrine: no symptoms reported Gastrointestinal: denies: abdominal pain, nausea, diarrhea Genitourinary: denies: urgency, dysuria, discharge Musculoskeletal: denies: back pain, joint swelling, arthralgia Skin: denies: rash, lesions Neurological: denies: headache, weakness, paresthesias Psychiatric: denies: anxiety, depression Hematological/Lymphatic: denies: easy bleeding, easy bruising ED Past Medical Hx - Past Medical History Previous Medical History?: Yes Hx Seizures: Yes Hx Psychiatric Treatment: Yes (Pt currently has a therapist and psychiatrist) Additional medical history: Schizophrenia/bipolar. OBESITY - Surgical History Past Surgical History?: No - Social History Smoking Status: Never Smoker Substance Use Type: None - Medications Home Medications: Home Medications Medication Instructions Recorded Confirmed Last Taken Type Perphenazine 16 mg PO DAILY 11/25/15 05/22/17 1 Day Ago History ~09/17/16 OXcarbazepine [Oxtellar XR] 150 mg PO QDAY #30 tab.er.24h 09/19/16 05/22/17 Unknown Rx OXcarbazepine [Oxtellar XR] 600 mg PO DAILY #30 tab.er.24h 09/19/16 05/22/17 Unknown Rx diphenhydrAMINE [Benadryl CAP] 50 mg PO HS #10 capsule 09/19/16 05/22/17 Unknown Rx Trihexyphenidyl [Artane] 2 mg PO TID 12/06/16 05/22/17 Unknown History LORazepam [Ativan] 1 mg PO BID 05/22/17 05/22/17 Unknown History Topiramate [Topamax] 100 mg PO BID 05/22/17 05/22/17 Unknown History Topiramate [Topamax] 100 mg PO BID #60 tablet 07/15/17 Unknown Rx levETIRAcetam [Keppra TAB] 500 mg PO BID #60 tablet 07/15/17 Unknown Rx ED Physical Exam - General Limitations: No Limitations General appearance: alert, in no apparent distress - Head Head exam: Present: atraumatic, normocephalic - Eye Eye exam: Present: normal appearance, PERRL, EOMI, other (visual acuity intact to finger counting, color perception, reading at a close distance). Absent: nystagmus - ENT ENT exam: Present: normal exam, normal orophraynx, mucous membranes moist, normal external ear exam - Neck Neck exam: Present: normal inspection, full ROM - Respiratory Respiratory exam: Present: normal lung sounds bilaterally. Absent: respiratory distress - Cardiovascular Cardiovascular Exam: Present: regular rate, normal rhythm, normal heart sounds. Absent: systolic murmur, diastolic murmur, rubs, gallop - GI/Abdominal GI/Abdominal exam: Present: soft, normal bowel sounds. Absent: distended, tenderness, guarding, rebound, rigid, pulsatile mass - Extremities Exam Extremities exam: Present: normal inspection, full ROM - Back Exam Back exam: Present: normal inspection, full ROM. Absent: CVA tenderness (R), paraspinal tenderness, vertebral tenderness - Neurological Exam Neurological exam: Present: alert, oriented X3, CN II-XII intact, normal gait, other (Extraocular movements intact. Tongue midline. No facial droop. Facial sensation intact to light touch in the V1, V2, V3 distribution bilaterally. 5 and 5 strength in 4 extremities.. Sensation is intact to light touch in 4 extremities.). Absent: motor sensory deficit - Psychiatric Psychiatric exam: Present: normal affect, normal mood - Skin Skin exam: Present: warm, dry, intact, normal color. Absent: rash ED Course Vital Signs 07/15/17 07/15/17 08:16 12:56 Temperature 98.1 F 98.3 F Pulse Rate 92 H 89 Respiratory 18 18 Rate Blood Pressure 110/58 98/48 O2 Sat by Pulse 99 97 Oximetry ED Medical Decision Making - Lab Data Result diagrams: 07/15/17 08:45 07/15/17 08:45 Vital Signs 07/15/17 07/15/17 08:16 12:56 Temperature 98.1 F 98.3 F Pulse Rate 92 H 89 Respiratory 18 18 Rate Blood Pressure 110/58 98/48 O2 Sat by Pulse 99 97 Oximetry Lab Results 07/15/17 07/15/17 07/15/17 Range/Units 08:45 08:45 08:45 WBC 5.6 (4.5-11.0) K/mm3 RBC 4.43 (3.65-5.03) M/mm3 Hgb 12.2 (10.1-14.3) gm/dl Hct 38.8 (30.3-42.9) % MCV 88 (79-97) fl MCH 28 (28-32) pg MCHC 32 (30-34) % RDW 14.6 (13.2-15.2) % Plt Count 132 L (140-440) K/mm3 Lymph % (Auto) 11.6 L (13.4-35.0) % [place] % (Auto) 5.3 (0.0-7.3) % Eos % (Auto) 0.3 (0.0-4.3) % Baso % (Auto) 0.3 (0.0-1.8) % Lymph # 0.6 L (1.2-5.4) K/mm3 [place] # 0.3 (0.0-0.8) K/mm3 Eos # 0.0 (0.0-0.4) K/mm3 Baso # 0.0 (0.0-0.1) K/mm3 Seg Neutrophils % 82.5 H (40.0-70.0) % Seg Neutrophils # 4.6 (1.8-7.7) K/mm3 Sodium 137 (137-145) mmol/L Potassium 4.2 (3.6-5.0) mmol/L Chloride 103.7 (98-107) mmol/L Carbon Dioxide 20 L (22-30) mmol/L Anion Gap 18 mmol/L BUN 11 (7-17) mg/dL Creatinine 0.7 (0.7-1.2) mg/dL Estimated GFR > 60 ml/min BUN/Creatinine Ratio 16 % Glucose 115 H (65-100) mg/dL Calcium 8.9 (8.4-10.2) mg/dL Total Bilirubin 0.30 (0.1-1.2) mg/dL AST 19 (5-40) units/L ALT 17 (7-56) units/L Alkaline Phosphatase 97 (35-129) units/L Total Protein 7.5 (6.3-8.2) g/dL Albumin 3.8 L (3.9-5) g/dL Albumin/Globulin Ratio 1.0 % HCG, Qual Negative (Negative) - Medical Decision Making Differential diagnosis, including but not limited to: Breakthrough seizure, medication noncompliance, Gen. medical screening examination Assessment and plan: 32-year-old female who reports breakthrough seizure. The patient is afebrile with reassuring vital signs and is clinically sober. The patient walks with a steady gait. Laboratory studies from today were unremarkable and the patient's physical exam was also unremarkable. The patient was instructed to not drive or operate motor vehicles for the next 6 months. Patient is loaded with antiepileptic drugs IV and orally. She can follow-up with her outpatient neurologist. She is clinically sober at this time. Critical care attestation.: If time is entered above; I have spent that time in minutes in the direct care of this critically ill patient, excluding procedure time. ED Disposition Clinical Impression: Seizure Disposition: DC-01 TO HOME OR SELFCARE Is pt being admited?: No Does the pt Need Aspirin: No Condition: Good Instructions: Epilepsy (ED) Additional Instructions: Continue current outpatient medications. Follow up with her primary care doctor or neurology specialist within the next week. Do not drive or operate motor vehicles for the next 6 months. Return to the ER right away with fevers, chills, lethargy, irritability, projectile vomiting, change in mental status, confusion, inability to tolerate liquid feeds. Referrals: PRIMARY ELÍAS, [Primary Care Provider] - 3-5 Days DANIEL DYER MD [Referring] - 3-5 Days KIM ALBA MD [Staff Physician] - 3-5 Days HUI OLMOS MD [Staff Physician] - 3-5 Days
[2017-07-15 20:56] VITALS: BP 108/73
== END 2017-07-15 21:05 | disposition home or self-care (01) ==
LOC: ED 07:19
DX: G40.909 Epilepsy, unspecified, not intractable, without status epilepticus (principal)
CPT/HCPCS: 36415; 80053; 84703; 85025; 96365; 99284; J1953

== ENCOUNTER 2017-07-29 23:50 | Emergency (ER) | payer MEDICAID ==
[2017-07-30] MEDS ORDERED: KEPPRA 1,000 MG/NS 0.75% 100ML 1,000 MG/100 ML BAG IV ONE (00:20)
--- NOTE | 2017-07-30 00:21 | Emergency Department Report ---
ED Seizure HPI - General Chief Complaint: Seizure Stated Complaint: CONVULSIONS Time Seen by Provider: 07/30/17 00:15 Source: patient, EMS (ems notes not available at time of chart dictation), RN notes reviewed, old records reviewed Mode of arrival: Stretcher Limitations: No Limitations - History of Present Illness Initial Comments: This is a 32-year-old female whom I have evaluated in the past. They see my note from 07/15/2017 for details of the patient's past medical history. The patient is brought to the hospital today by EMS for seizures. Patient's had at least 2 or 3 seizures today. There is no head trauma. There are no precipitating factors. The patient denies headache, neck pain, chest pain, abdominal pain, shortness of breath and urinary symptoms. She reports medication compliance. Of note, patient has been admitted to this hospital in the past for breakthrough seizures secondary to documented medication noncompliance. Patient cannot describe exacerbating or relieving factors. The patient further indicates that she is not using drugs. MD Complaint: seizure -: Sudden Description of Episode: tonic-clonic movement -: second(s) Witnessed:: Yes Seizure History: known seizure disorder, history of non-compliance Possible Precipitating Event: none Associated Symptoms: malaise. denies: chest pain, confusion, cough, diaphoresis , fever/chills, loss of appetite, rash, shortness of breath, syncope, weakness, tongue injury, shoulder dislocation - Related Data Home Medications Medication Instructions Recorded Confirmed Last Taken Perphenazine 16 mg PO DAILY 11/25/15 05/22/17 1 Day Ago ~09/17/16 Trihexyphenidyl [Artane] 2 mg PO TID 12/06/16 05/22/17 Unknown LORazepam [Ativan] 1 mg PO BID 05/22/17 05/22/17 Unknown Topiramate [Topamax] 100 mg PO BID 05/22/17 05/22/17 Unknown Previous Rx's Medication Instructions Recorded Last Taken Type OXcarbazepine [Oxtellar XR] 150 mg PO QDAY #30 tab.er.24h 09/19/16 Unknown Rx OXcarbazepine [Oxtellar XR] 600 mg PO DAILY #30 tab.er.24h 09/19/16 Unknown Rx diphenhydrAMINE [Benadryl CAP] 50 mg PO HS #10 capsule 09/19/16 Unknown Rx Topiramate [Topamax] 100 mg PO BID #60 tablet 07/15/17 Unknown Rx levETIRAcetam [Keppra TAB] 500 mg PO BID #60 tablet 07/15/17 Unknown Rx levETIRAcetam [Keppra TAB] 750 mg PO BID #60 tablet 07/30/17 Unknown Rx Allergies Allergy/AdvReac Type Severity Reaction Status Date / Time No Known Allergies Allergy Verified 09/08/16 16:27 ED Review of Systems ROS: Stated complaint: CONVULSIONS Other details as noted in HPI Comment: All other systems reviewed and negative Neurological: denies: numbness, paresthesias, confusion, abnormal gait, vertigo ED Past Medical Hx - Past Medical History Previous Medical History?: Yes Hx Seizures: Yes Hx Psychiatric Treatment: Yes (Pt currently has a therapist and psychiatrist) Additional medical history: Schizophrenia/bipolar. OBESITY - Social History Smoking Status: Unknown if ever smoked Substance Use Type: None - Medications Home Medications: Home Medications Medication Instructions Recorded Confirmed Last Taken Type Perphenazine 16 mg PO DAILY 11/25/15 05/22/17 1 Day Ago History ~09/17/16 OXcarbazepine [Oxtellar XR] 150 mg PO QDAY #30 tab.er.24h 09/19/16 05/22/17 Unknown Rx OXcarbazepine [Oxtellar XR] 600 mg PO DAILY #30 tab.er.24h 09/19/16 05/22/17 Unknown Rx diphenhydrAMINE [Benadryl CAP] 50 mg PO HS #10 capsule 09/19/16 05/22/17 Unknown Rx Trihexyphenidyl [Artane] 2 mg PO TID 12/06/16 05/22/17 Unknown History LORazepam [Ativan] 1 mg PO BID 05/22/17 05/22/17 Unknown History Topiramate [Topamax] 100 mg PO BID 05/22/17 05/22/17 Unknown History Topiramate [Topamax] 100 mg PO BID #60 tablet 07/15/17 Unknown Rx levETIRAcetam [Keppra TAB] 500 mg PO BID #60 tablet 07/15/17 Unknown Rx levETIRAcetam [Keppra TAB] 750 mg PO BID #60 tablet 07/30/17 Unknown Rx ED Physical Exam - General Limitations: No Limitations General appearance: alert, in no apparent distress - Head Head exam: Present: atraumatic, normocephalic - Eye Eye exam: Present: normal appearance, PERRL, EOMI, other (visual acuity intact to finger counting, color perception, reading at a close distance). Absent: nystagmus - ENT ENT exam: Present: normal exam, normal orophraynx, mucous membranes moist, normal external ear exam - Neck Neck exam: Present: normal inspection, full ROM - Respiratory Respiratory exam: Present: normal lung sounds bilaterally. Absent: respiratory distress - Cardiovascular Cardiovascular Exam: Present: regular rate, normal rhythm, normal heart sounds. Absent: bradycardia, tachycardia, irregular rhythm, systolic murmur, diastolic murmur, rubs, gallop - GI/Abdominal GI/Abdominal exam: Present: soft, normal bowel sounds. Absent: distended, tenderness, guarding, rebound, rigid, pulsatile mass - Extremities Exam Extremities exam: Present: normal inspection, full ROM, normal capillary refill. Absent: pedal edema, joint swelling, calf tenderness - Back Exam Back exam: Present: normal inspection, full ROM. Absent: tenderness, CVA tenderness (R), paraspinal tenderness, vertebral tenderness - Neurological Exam Neurological exam: Present: alert, oriented X3, CN II-XII intact, normal gait, other (Extraocular movements intact. Tongue midline. No facial droop. Facial sensation intact to light touch in the V1, V2, V3 distribution bilaterally. 5 and 5 strength in 4 extremities.. Sensation is intact to light touch in 4 extremities.). Absent: motor sensory deficit - Psychiatric Psychiatric exam: Present: normal affect, normal mood - Skin Skin exam: Present: warm, dry, intact, normal color. Absent: rash ED Course Vital Signs 07/30/17 07/30/17 07/30/17 00:11 00:17 01:33 Temperature 98.9 F Pulse Rate 85 82 Respiratory 12 16 Rate Blood Pressure 105/72 Blood Pressure 105/72 [Left] - Reevaluation(s) Reevaluation #1: 07/30/17 01:50 Differential diagnosis, including but not limited to: Medication noncompliance, urinary tract infection, myositis, seizure, breakthrough seizure, pseudoseizure Assessment and plan: 32-year-old female with history of breakthrough seizures. She is clinically sober at this time, with a GCS of 15, and an NIH score of 0. Her physical exam is unremarkable, her laboratory studies are unremarkable. Patient endorses compliance with the medications. She was given her nighttime oral medications, including her antiepileptic drugs, by her nurse. Her Keppra will be increased to 750 mg twice daily, she is instructed to not drive, and a urinalysis is pending at this time. Care is transferred to the overnight physician, Dr. Bullock, to follow up with the patient's urinalysis, and if demonstrative of bacteriuria or urinary tract infection would treat. Otherwise, with discharged to follow up with outpatient neurology. ED Medical Decision Making - Lab Data Result diagrams: 07/30/17 00:37 07/30/17 00:37 Vital Signs 07/30/17 07/30/17 07/30/17 00:11 00:17 01:33 Temperature 98.9 F Pulse Rate 85 82 Respiratory 12 16 Rate Blood Pressure 105/72 Blood Pressure 105/72 [Left] Lab Results 07/30/17 07/30/17 07/30/17 Range/Units 00:37 00:37 00:37 WBC 3.5 L (4.5-11.0) K/mm3 RBC 4.12 (3.65-5.03) M/mm3 Hgb 11.3 (10.1-14.3) gm/dl Hct 35.6 (30.3-42.9) % MCV 86 (79-97) fl MCH 27 L (28-32) pg MCHC 32 (30-34) % RDW 14.4 (13.2-15.2) % Plt Count 170 (140-440) K/mm3 Sodium 141 (137-145) mmol/L Potassium 4.5 (3.6-5.0) mmol/L Chloride 106.2 (98-107) mmol/L Carbon Dioxide 22 (22-30) mmol/L Anion Gap 17 mmol/L BUN 9 (7-17) mg/dL Creatinine 0.8 (0.7-1.2) mg/dL Estimated GFR > 60 ml/min BUN/Creatinine Ratio 11 % Glucose 114 H (65-100) mg/dL Calcium 8.8 (8.4-10.2) mg/dL Total Creatine Kinase 252 H (30-135) units/L HCG, Quant < 2 (0-4) mIU/mL Critical care attestation.: If time is entered above; I have spent that time in minutes in the direct care of this critically ill patient, excluding procedure time. ED Disposition Clinical Impression: Recurrent seizures Disposition: DC- TO HOME OR SELFCARE Is pt being admited?: No Does the pt Need Aspirin: No Condition: Stable Instructions: Recurrent Seizures Adult (ED) Additional Instructions: Continue current outpatient medications. Increase Keppra to 750 mg twice daily. Do not drive or operate motor vehicles for the next 6 months. Follow- up with neurology specialist within the next 7-10 days. Follow up with any of the listed neurology specialist or your primary neurology specialist. Return to the ER right away with fevers, chills, chest pain, shortness of breath, recurrent seizures, intractable nausea or vomiting, confusion, inability to tolerate liquid feeds. Referrals: PRIMARY MD ELÍAS [Primary Care Provider] - 3-5 Days DANIEL DYER MD [Referring] - 3-5 Days KIM ALBA MD [Staff Physician] - 3-5 Days HUI OLMOS MD [Staff Physician] - 3-5 Days
[2017-07-30 00:50] LABS: Hematocrit 35.6 % (30.3-42.9); Hemoglobin 11.3 gm/dl (10.1-14.3); Mean Corpuscular HGB Conc 32 % (30-34); Mean Corpuscular Hemoglobin 27 pg (28-32); Mean Corpuscular Volume 86 fl (79-97); Platelet Count 170 K/mm3 (140-440); Red Blood Count 4.12 M/mm3 (3.65-5.03); Red Cell Distribution Width 14.4 % (13.2-15.2)
[2017-07-30 01:04] LABS: BUN/Creatinine Ratio 11; Blood Urea Nitrogen 9 mg/dL (7-17); Calcium 8.8 mg/dL (8.4-10.2); Hemolysis Index 198
[2017-07-30] MEDS ORDERED: NACL 0.9% 1000 ML 1,000 ML IV ONE (02:10)
[2017-07-30 02:12] LABS: Bilirubin,Urine NEG (Negative); Blood,Urine NEG (Negative); Color,Urine Yellow (Yellow); Mucus,Urine 3+ /HPF; Urobilinogen,Urine < 2.0 mg/dL (<2.0)
[2017-07-30 02:22] LABS: Amphetamine Screen,Urine PRESUMPTIVE NEGATIVE; Benzodiazepines Screen,Urine PRESUMPTIVE NEGATIVE; Cannabinoid Screen,Urine PRESUMPTIVE NEGATIVE; Cocaine Screen,Urine PRESUMPTIVE NEGATIVE; Methadone Screen,Urine PRESUMPTIVE NEGATIVE; Opiate Screen,Urine PRESUMPTIVE NEGATIVE
[2017-07-30] MEDS ORDERED: NACL 0.9% 1000 ML 1,000 ML ONE (03:11)
[2017-07-30 05:13] VITALS: BP 109/75
== END 2017-07-30 06:24 | disposition home or self-care (01) ==
LOC: ED 23:50
DX: G40.919 Epilepsy, unspecified, intractable, without status epilepticus (principal); F31.9 Bipolar disorder, unspecified; F20.9 Schizophrenia, unspecified; Z91.14 Patient's other noncompliance with medication regimen
CPT/HCPCS: 36415; 80048; 80307; 81001; 82550; 84702; 85027; 96361; 96374; 99284; J1953; J7030

== ENCOUNTER 2017-10-31 02:13 | Emergency (ER) | payer MEDICAID ==
[2017-10-31] MEDS ORDERED: KEPPRA 1,000 MG/NS 0.75% 100ML 1,000 MG/100 ML BAG IV ONE (02:48)
[2017-10-31 03:01] LABS: Hematocrit 33.1 % (30.3-42.9); Hemoglobin 10.9 gm/dl (10.1-14.3); Mean Corpuscular HGB Conc 33 % (30-34); Mean Corpuscular Hemoglobin 28 pg (28-32); Mean Corpuscular Volume 86 fl (79-97); Platelet Count 168 K/mm3 (140-440); Red Blood Count 3.85 M/mm3 (3.65-5.03); Red Cell Distribution Width 13.6 % (13.2-15.2)
--- NOTE | 2017-10-31 03:01 | Emergency Department Report ---
HPI - General Chief Complaint: Seizure Time Seen by Provider: 10/31/17 02:47 - HPI HPI: Room 3 The patient is a 32-year-old female presenting with chief complaint of seizure. Patient reportedly had a seizure today and was transported to the ED for further evaluation. Patient was recently started on Dilantin. When asked how she is feeling currently the patient reports she feels okay. The patient states she's been compliant with her medication Location: [facility] Duration: Unknown Quality: Unknown Severity: Unknown Modifying factors: [see above] Context: [see above] Mode of transportation: [not driving] ED Past Medical Hx - Past Medical History Previous Medical History?: Yes Hx Seizures: Yes Hx Psychiatric Treatment: Yes (Pt currently has a therapist and psychiatrist) Additional medical history: Schizophrenia/bipolar. OBESITY - Surgical History Past Surgical History?: No - Family History Family history: no significant - Social History Smoking Status: Never Smoker Substance Use Type: None (denies illicit drug use) - Medications Home Medications: Home Medications Medication Instructions Recorded Confirmed Last Taken Type Perphenazine 16 mg PO DAILY 11/25/15 05/22/17 1 Day Ago History ~09/17/16 OXcarbazepine [Oxtellar XR] 150 mg PO QDAY #30 tab.er.24h 09/19/16 05/22/17 Unknown Rx OXcarbazepine [Oxtellar XR] 600 mg PO DAILY #30 tab.er.24h 09/19/16 05/22/17 Unknown Rx diphenhydrAMINE [Benadryl CAP] 50 mg PO HS #10 capsule 09/19/16 05/22/17 Unknown Rx Trihexyphenidyl [Artane] 2 mg PO TID 12/06/16 05/22/17 Unknown History LORazepam [Ativan] 1 mg PO BID 05/22/17 05/22/17 Unknown History Topiramate [Topamax] 100 mg PO BID 05/22/17 05/22/17 Unknown History Topiramate [Topamax] 100 mg PO BID #60 tablet 07/15/17 Unknown Rx levETIRAcetam [Keppra TAB] 500 mg PO BID #60 tablet 07/15/17 Unknown Rx levETIRAcetam [Keppra TAB] 750 mg PO BID #60 tablet 07/30/17 Unknown Rx ED Review of Systems ROS: Stated complaint: SEIZURE Other details as noted in HPI Constitutional: no symptoms reported Eyes: denies: eye pain ENT: denies: throat pain Respiratory: no symptoms reported Cardiovascular: denies: chest pain Endocrine: no symptoms reported Gastrointestinal: denies: abdominal pain Genitourinary: denies: dysuria Musculoskeletal: denies: back pain Neurological: other (seizure). denies: headache Physical Exam - Physical Exam Vital Signs: Vital Signs 10/31/17 02:32 Temperature 99 F Pulse Rate 87 Respiratory 17 Rate Blood Pressure 117/76 Blood Pressure 117/76 [Left] O2 Sat by Pulse 99 Oximetry Physical Exam: GENERAL: The patient is well-developed well-nourished female lying on stretcher not appearing to be in acute distress. [] HEENT: Normocephalic. Atraumatic. Extraocular motions are intact. Patient has moist mucous membranes. NECK: Supple. Trachea midline CHEST/LUNGS: Clear to auscultation. There is no respiratory distress noted. HEART/CARDIOVASCULAR: Regular. There is no tachycardia. There is no gallop rub or murmur. ABDOMEN: Abdomen is soft, nontender. Patient has normal bowel sounds. There is no abdominal distention. SKIN: There is no rash. There is no edema. There is no diaphoresis. NEURO: The patient is awake and oriented. The patient appears to be in a residual postictal state. The patient is cooperative. The patient has no focal neurologic deficits. The patient has normal speech. Cranial nerves II through XII grossly intact MUSCULOSKELETAL: There is no evidence of acute injury. ED Course Vital Signs 10/31/17 02:32 Temperature 99 F Pulse Rate 87 Respiratory 17 Rate Blood Pressure 117/76 Blood Pressure 117/76 [Left] O2 Sat by Pulse 99 Oximetry - Reevaluation(s) Reevaluation #1: 10/31/17 04:31 Patient denies complaints ED Medical Decision Making - Lab Data Result diagrams: 10/31/17 02:40 10/31/17 02:40 Laboratory Tests 10/31/17 10/31/17 10/31/17 02:40 02:40 02:48 WBC 3.9 L RBC 3.85 Hgb 10.9 Hct 33.1 MCV 86 MCH 28 MCHC 33 RDW 13.6 Plt Count 168 Sodium 138 Potassium 3.6 Chloride 101.6 Carbon Dioxide 22 Anion Gap 18 BUN 7 Creatinine 0.7 Estimated GFR > 60 BUN/Creatinine Ratio 10 Glucose 118 H Calcium 8.8 HCG, Qual Negative Phenytoin 10/31/17 02:59 WBC RBC Hgb Hct MCV MCH MCHC RDW Plt Count Sodium Potassium Chloride Carbon Dioxide Anion Gap BUN Creatinine Estimated GFR BUN/Creatinine Ratio Glucose Calcium HCG, Qual Phenytoin 4.4 L - Differential Diagnosis seizure Critical care attestation.: If time is entered above; I have spent that time in minutes in the direct care of this critically ill patient, excluding procedure time. ED Disposition Clinical Impression: Seizure Disposition: DC-01 TO HOME OR SELFCARE Is pt being admited?: No Does the pt Need Aspirin: No Condition: Stable Instructions: Women and Epilepsy (ED), Epilepsy (ED) Additional Instructions: Return to the emergency department immediately should you develop worsening symptoms, fever, inability to tolerate food or liquid or any other concerns. Referrals: PRIMARY CARE, [Primary Care Provider] - 3-5 Days Time of Disposition: 04:32
[2017-10-31 03:06] LABS: BUN/Creatinine Ratio 10; Blood Urea Nitrogen 7 mg/dL (7-17); Calcium 8.8 mg/dL (8.4-10.2); Hemolysis Index 2
[2017-10-31] MEDS ORDERED: CEREBYX 1,000 MG.PE in NACL 0.9% 100 ML IV ONE (03:42)
[2017-10-31 06:36] VITALS: BP 103/63
== END 2017-10-31 06:15 | disposition home or self-care (01) ==
LOC: ED 02:13
DX: R56.9 Unspecified convulsions (principal); F20.9 Schizophrenia, unspecified; F31.9 Bipolar disorder, unspecified; Z79.899 Other long term (current) drug therapy
CPT/HCPCS: 36415; 80048; 80185; 84703; 85027; 96365; 96367; 99284; J1953; Q2009

== ENCOUNTER 2018-05-01 08:16 | Emergency (ER) | payer MEDICAID ==
[2018-05-01 10:25] LABS: Hemoglobin 12.8 gm/dl (10.1-14.3); Red Blood Count 4.37 M/mm3 (3.65-5.03)
[2018-05-01 10:26] LABS: Mean Platelet Volume 7.8 fl (6-12); Red Cell Distribution Width 13.9 % (13.2-15.2)
[2018-05-01] MEDS ORDERED: KEPPRA PO ONE (10:35)
[2018-05-01 10:37] LABS: BUN/Creatinine Ratio 12; Blood Urea Nitrogen 7 mg/dL (7-17); Calcium 9.2 mg/dL (8.4-10.2); Hemolysis Index 8
--- NOTE | 2018-05-01 11:04 | Emergency Department Report ---
ED General Adult HPI - General Chief complaint: Seizure Stated complaint: SEIZURE Time Seen by Provider: 05/01/18 10:27 Source: patient Mode of arrival: Ambulatory Limitations: No Limitations - History of Present Illness Initial comments: Patient is a 33-year-old female past medical history of seizure disorder who presents status post seizure. Patient was seen at [address] [place] [address] earlier on today for seizures. She states that she is having multiple seizures today and that she has been out of her seizure medication. She states that she hasn't been able to schedule an appointment with her neurologist. Patient denies being any pain she denies smoking and states that she's been getting enough sleep. Patient is currently unemployed Severity scale (0 -10): 6 - Related Data Home Medications Medication Instructions Recorded Confirmed Last Taken Perphenazine 16 mg PO DAILY 11/25/15 05/22/17 1 Day Ago ~09/17/16 Trihexyphenidyl [Artane] 2 mg PO TID 12/06/16 05/22/17 Unknown LORazepam [Ativan] 1 mg PO BID 05/22/17 05/22/17 Unknown Topiramate [Topamax] 100 mg PO BID 05/22/17 05/22/17 Unknown Previous Rx's Medication Instructions Recorded Last Taken Type OXcarbazepine [Oxtellar XR] 150 mg PO QDAY #30 tab.er.24h 09/19/16 Unknown Rx OXcarbazepine [Oxtellar XR] 600 mg PO DAILY #30 tab.er.24h 09/19/16 Unknown Rx diphenhydrAMINE [Benadryl CAP] 50 mg PO HS #10 capsule 09/19/16 Unknown Rx levETIRAcetam [Keppra TAB] 500 mg PO BID #60 tablet 07/15/17 Unknown Rx levETIRAcetam [Keppra] 500 mg PO BID #60 tablet 12/28/17 Unknown Rx Topiramate [Topamax] 100 mg PO BID #60 tablet 05/01/18 Unknown Rx levETIRAcetam [Keppra TAB] 750 mg PO BID #60 tablet 05/01/18 Unknown Rx Allergies Allergy/AdvReac Type Severity Reaction Status Date / Time No Known Allergies Allergy Verified 09/08/16 16:27 ED Review of Systems ROS: Stated complaint: SEIZURE Other details as noted in HPI Constitutional: denies: chills, fever Eyes: denies: eye pain, eye discharge, vision change ENT: denies: ear pain, throat pain Respiratory: denies: cough, shortness of breath, wheezing Cardiovascular: denies: chest pain, palpitations Endocrine: no symptoms reported Gastrointestinal: denies: abdominal pain, nausea, diarrhea Genitourinary: denies: urgency, dysuria, discharge Musculoskeletal: denies: back pain, joint swelling, arthralgia Skin: denies: rash, lesions Neurological: denies: headache, weakness, paresthesias Psychiatric: denies: anxiety, depression Hematological/Lymphatic: denies: easy bleeding, easy bruising ED Past Medical Hx - Past Medical History Previous Medical History?: Yes Hx Seizures: Yes Hx Psychiatric Treatment: Yes (Pt currently has a therapist and psychiatrist) Additional medical history: Schizophrenia/bipolar. OBESITY - Surgical History Past Surgical History?: No - Social History Smoking Status: Unknown if ever smoked Substance Use Type: None - Medications Home Medications: Home Medications Medication Instructions Recorded Confirmed Last Taken Type Perphenazine 16 mg PO DAILY 11/25/15 05/22/17 1 Day Ago History ~09/17/16 OXcarbazepine [Oxtellar XR] 150 mg PO QDAY #30 tab.er.24h 09/19/16 05/22/17 Unknown Rx OXcarbazepine [Oxtellar XR] 600 mg PO DAILY #30 tab.er.24h 09/19/16 05/22/17 Unknown Rx diphenhydrAMINE [Benadryl CAP] 50 mg PO HS #10 capsule 09/19/16 05/22/17 Unknown Rx Trihexyphenidyl [Artane] 2 mg PO TID 12/06/16 05/22/17 Unknown History LORazepam [Ativan] 1 mg PO BID 05/22/17 05/22/17 Unknown History Topiramate [Topamax] 100 mg PO BID 05/22/17 05/22/17 Unknown History levETIRAcetam [Keppra TAB] 500 mg PO BID #60 tablet 07/15/17 Unknown Rx levETIRAcetam [Keppra] 500 mg PO BID #60 tablet 12/28/17 Unknown Rx Topiramate [Topamax] 100 mg PO BID #60 tablet 05/01/18 Unknown Rx levETIRAcetam [Keppra TAB] 750 mg PO BID #60 tablet 05/01/18 Unknown Rx ED Physical Exam - General Limitations: No Limitations General appearance: alert, in no apparent distress - Head Head exam: Present: atraumatic, normocephalic - Eye Eye exam: Present: normal appearance - ENT ENT exam: Present: mucous membranes moist - Neck Neck exam: Present: normal inspection - Respiratory Respiratory exam: Present: normal lung sounds bilaterally. Absent: respiratory distress - Cardiovascular Cardiovascular Exam: Present: regular rate, normal rhythm. Absent: systolic murmur, diastolic murmur, rubs, gallop - GI/Abdominal GI/Abdominal exam: Present: soft, normal bowel sounds - Extremities Exam Extremities exam: Present: normal inspection - Back Exam Back exam: Present: normal inspection - Neurological Exam Neurological exam: Present: alert, oriented X3 - Psychiatric Psychiatric exam: Present: normal affect, normal mood - Skin Skin exam: Present: warm, dry, intact, normal color. Absent: rash ED Course Vital Signs 05/01/18 05/01/18 05/01/18 08:36 12:03 12:05 Temperature 98.8 F Pulse Rate 111 H 86 Respiratory 16 17 18 Rate Blood Pressure 119/78 136/95 [Right] O2 Sat by Pulse 96 100 Oximetry ED Medical Decision Making - Lab Data Result diagrams: 05/01/18 09:00 05/01/18 09:00 Lab Results 05/01/18 05/01/18 05/01/18 Range/Units 09:00 09:00 09:00 WBC 4.6 (4.5-11.0) K/mm3 RBC 4.37 (3.65-5.03) M/mm3 Hgb 12.8 (10.1-14.3) gm/dl Hct 38.0 (30.3-42.9) % MCV 87 (79-97) fl MCH 29 (28-32) pg MCHC 34 (30-34) % RDW 13.9 (13.2-15.2) % Plt Count 182 (140-440) K/mm3 Sodium 137 (137-145) mmol/L Potassium 4.3 (3.6-5.0) mmol/L Chloride 100.8 (98-107) mmol/L Carbon Dioxide 21 L (22-30) mmol/L Anion Gap 20 mmol/L BUN 7 (7-17) mg/dL Creatinine 0.6 L (0.7-1.2) mg/dL Estimated GFR > 60 ml/min BUN/Creatinine Ratio 12 % Glucose 125 H (65-100) mg/dL Calcium 9.2 (8.4-10.2) mg/dL HCG, Qual (Negative) Urine Color (Yellow) Urine Turbidity (Clear) Urine pH (5.0-7.0) Ur Specific [place] (1.003-1.030) Urine Protein (Negative) mg/dL Urine Glucose (UA) (Negative) mg/dL Urine Ketones (Negative) mg/dL Urine Blood (Negative) Urine Nitrite (Negative) Urine Bilirubin (Negative) Urine Urobilinogen (<2.0) mg/dL Ur Leukocyte Esterase (Negative) Urine WBC (Auto) (0.0-6.0) /HPF Urine RBC (Auto) (0.0-6.0) /HPF U Epithel Cells (Auto) (0-13.0) /HPF Hyaline Casts /LPF Urine Mucus /HPF Phenytoin 1.7 L (10.0-20.0) ug/mL 05/01/18 05/01/18 Range/Units 09:00 11:51 WBC (4.5-11.0) K/mm3 RBC (3.65-5.03) M/mm3 Hgb (10.1-14.3) gm/dl Hct (30.3-42.9) % MCV (79-97) fl MCH (28-32) pg MCHC (30-34) % RDW (13.2-15.2) % Plt Count (140-440) K/mm3 Sodium (137-145) mmol/L Potassium (3.6-5.0) mmol/L Chloride (98-107) mmol/L Carbon Dioxide (22-30) mmol/L Anion Gap mmol/L BUN (7-17) mg/dL Creatinine (0.7-1.2) mg/dL Estimated GFR ml/min BUN/Creatinine Ratio % Glucose (65-100) mg/dL Calcium (8.4-10.2) mg/dL HCG, Qual Negative (Negative) Urine Color Yellow (Yellow) Urine Turbidity Clear (Clear) Urine pH 6.0 (5.0-7.0) Ur Specific [place] 1.021 (1.003-1.030) Urine Protein 30 mg/dl (Negative) mg/dL Urine Glucose (UA) Neg (Negative) mg/dL Urine Ketones Tr (Negative) mg/dL Urine Blood Neg (Negative) Urine Nitrite Neg (Negative) Urine Bilirubin Neg (Negative) Urine Urobilinogen < 2.0 (<2.0) mg/dL Ur Leukocyte Esterase Tr (Negative) Urine WBC (Auto) 2.0 (0.0-6.0) /HPF Urine RBC (Auto) 1.0 (0.0-6.0) /HPF U Epithel Cells (Auto) 5.0 (0-13.0) /HPF Hyaline Casts 1 /LPF Urine Mucus Few /HPF Phenytoin (10.0-20.0) ug/mL - Medical Decision Making Chief medical diagnosis seizure secondary to medication nonadherence Differential medical diagnosis: Electrolyte abnormality, urinary tract infection I will give patient keppra, blood work and ua Patient's laboratory workup is only remarkable for low phenytoin level PATIENT oral Keppra and IV fosphenytoin and discharge patient home with her home seizure medication. Discussed plan with patient patient agrees with plan. Additional verbal discharge instructions were given. Critical care attestation.: If time is entered above; I have spent that time in minutes in the direct care of this critically ill patient, excluding procedure time. ED Disposition Clinical Impression: Seizure, Recurrent seizures, Nonadherence to medication Disposition: DC-01 TO HOME OR SELFCARE Is pt being admited?: No Does the pt Need Aspirin: No Condition: Stable Instructions: Epilepsy (ED) Prescriptions: levETIRAcetam [Keppra TAB] 750 mg PO BID #60 tablet Topiramate [Topamax] 100 mg PO BID #60 tablet Referrals: HUA MCKINLEY MD [Primary Care Provider] - 3-5 Days ALIX ORTEGA MD [Staff Physician] - 3-5 Days OMEGA BUCKNER MD [Referring] - 3-5 Days
[2018-05-01] MEDS ORDERED: CEREBYX 1,000 MG.PE in NACL 0.9% 100 ML IV ONE (11:41)
[2018-05-01 12:02] LABS: Bilirubin,Urine NEG (Negative); Blood,Urine NEG (Negative); Color,Urine Yellow (Yellow); Hyaline Casts,Urine 1 /LPF; Mucus,Urine FEW /HPF; Urobilinogen,Urine < 2.0 mg/dL (<2.0)
[2018-05-01 12:06] VITALS: BP 136/95
== END 2018-05-01 13:15 | disposition home or self-care (01) ==
LOC: ED 08:16
DX: G40.909 Epilepsy, unspecified, not intractable, without status epilepticus (principal); F20.9 Schizophrenia, unspecified; F31.9 Bipolar disorder, unspecified; E66.9 Obesity, unspecified; Z68.34 Body mass index [BMI] 34.0-34.9, adult
CPT/HCPCS: 36415; 80048; 80185; 81001; 84703; 85027; 96365; 99284; Q2009; 96374

== ENCOUNTER 2018-07-03 01:42 | Emergency (ER) | payer MEDICAID ==
--- NOTE | 2018-07-03 02:21 | Emergency Department Report ---
ED Seizure HPI - General Chief Complaint: Seizure Stated Complaint: SEIZURE Time Seen by Provider: 07/03/18 02:13 Source: patient, EMS Mode of arrival: Stretcher Limitations: No Limitations - History of Present Illness Initial Comments: Patient is a 33-year-old female with a known seizure history presents to emergency room via EMS for seizure. Patient states she has approximately 3 seizures per month. Patient states that she is taking all of her seizure medication. Patient denies pain. Patient denies trauma to her head. Patient denies running or tongue. Patient denies shoulder pain. Patient states she did urinate on herself. MD Complaint: seizure -: Sudden Description of Episode: loss of consciousness, tonic-clonic movement -: second(s) Witnessed:: Yes Trauma: No Seizure History: known seizure disorder, compliant with medication Place: home Possible Precipitating Event: none Associated Symptoms: confusion. denies: chest pain, cough, diaphoresis, fever/chills, loss of appetite, malaise, rash, shortness of breath, syncope, weakness, tongue injury, shoulder dislocation Treatments Prior to Arrival: none - Related Data Home Medications Medication Instructions Recorded Confirmed Last Taken Perphenazine 16 mg PO DAILY 11/25/15 05/22/17 1 Day Ago ~09/17/16 Trihexyphenidyl [Artane] 2 mg PO TID 12/06/16 05/22/17 Unknown LORazepam [Ativan] 1 mg PO BID 05/22/17 05/22/17 Unknown Topiramate [Topamax] 100 mg PO BID 05/22/17 05/22/17 Unknown Previous Rx's Medication Instructions Recorded Last Taken Type OXcarbazepine [Oxtellar XR] 150 mg PO QDAY #30 tab.er.24h 09/19/16 Unknown Rx OXcarbazepine [Oxtellar XR] 600 mg PO DAILY #30 tab.er.24h 09/19/16 Unknown Rx diphenhydrAMINE [Benadryl CAP] 50 mg PO HS #10 capsule 09/19/16 Unknown Rx levETIRAcetam [Keppra TAB] 500 mg PO BID #60 tablet 07/15/17 Unknown Rx levETIRAcetam [Keppra] 500 mg PO BID #60 tablet 12/28/17 Unknown Rx Topiramate [Topamax] 100 mg PO BID #60 tablet 05/01/18 Unknown Rx levETIRAcetam [Keppra TAB] 750 mg PO BID #60 tablet 05/01/18 Unknown Rx Allergies Allergy/AdvReac Type Severity Reaction Status Date / Time No Known Allergies Allergy Verified 09/08/16 16:27 ED Review of Systems ROS: Stated complaint: SEIZURE Other details as noted in HPI Constitutional: denies: chills, fever Eyes: denies: eye pain, eye discharge, vision change ENT: denies: ear pain, throat pain Respiratory: denies: cough, shortness of breath, wheezing Cardiovascular: denies: chest pain, palpitations Endocrine: no symptoms reported Gastrointestinal: denies: abdominal pain, nausea, diarrhea Genitourinary: denies: urgency, dysuria, discharge Musculoskeletal: denies: back pain, joint swelling, arthralgia Skin: denies: rash, lesions Neurological: denies: headache, weakness, paresthesias Psychiatric: denies: anxiety, depression Hematological/Lymphatic: denies: easy bleeding, easy bruising ED Past Medical Hx - Past Medical History Previous Medical History?: Yes Hx Seizures: Yes Hx Psychiatric Treatment: Yes (Pt currently has a therapist and psychiatrist) Additional medical history: Schizophrenia/bipolar. OBESITY - Surgical History Past Surgical History?: No - Family History Family history: no significant - Social History Smoking Status: Current Every Day Smoker Substance Use Type: None - Medications Home Medications: Home Medications Medication Instructions Recorded Confirmed Last Taken Type Perphenazine 16 mg PO DAILY 11/25/15 05/22/17 1 Day Ago History ~09/17/16 OXcarbazepine [Oxtellar XR] 150 mg PO QDAY #30 tab.er.24h 09/19/16 05/22/17 Unknown Rx OXcarbazepine [Oxtellar XR] 600 mg PO DAILY #30 tab.er.24h 09/19/16 05/22/17 Unknown Rx diphenhydrAMINE [Benadryl CAP] 50 mg PO HS #10 capsule 09/19/16 05/22/17 Unknown Rx Trihexyphenidyl [Artane] 2 mg PO TID 12/06/16 05/22/17 Unknown History LORazepam [Ativan] 1 mg PO BID 05/22/17 05/22/17 Unknown History Topiramate [Topamax] 100 mg PO BID 05/22/17 05/22/17 Unknown History levETIRAcetam [Keppra TAB] 500 mg PO BID #60 tablet 07/15/17 Unknown Rx levETIRAcetam [Keppra] 500 mg PO BID #60 tablet 12/28/17 Unknown Rx Topiramate [Topamax] 100 mg PO BID #60 tablet 05/01/18 Unknown Rx levETIRAcetam [Keppra TAB] 750 mg PO BID #60 tablet 05/01/18 Unknown Rx ED Physical Exam - General Limitations: No Limitations General appearance: alert, in no apparent distress - Head Head exam: Present: atraumatic, normocephalic - Eye Eye exam: Present: normal appearance, PERRL, EOMI Pupils: Present: normal accommodation - ENT ENT exam: Present: mucous membranes moist - Neck Neck exam: Present: normal inspection - Respiratory Respiratory exam: Present: normal lung sounds bilaterally. Absent: respiratory distress - Cardiovascular Cardiovascular Exam: Present: regular rate, normal rhythm. Absent: systolic murmur, diastolic murmur, rubs, gallop - GI/Abdominal GI/Abdominal exam: Present: soft, normal bowel sounds. Absent: distended, tenderness, guarding, rebound - Rectal Rectal exam: Present: deferred - Extremities Exam Extremities exam: Present: normal inspection, full ROM. Absent: tenderness - Back Exam Back exam: Present: normal inspection, full ROM. Absent: tenderness - Neurological Exam Neurological exam: Present: alert, oriented X3, CN II-XII intact - Psychiatric Psychiatric exam: Present: normal affect, normal mood - Skin Skin exam: Present: warm, dry, intact, normal color. Absent: rash ED Course Vital Signs 07/03/18 07/03/18 07/03/18 02:55 03:01 03:15 Temperature Pulse Rate 80 92 H 87 Respiratory 21 25 H 24 Rate Blood Pressure 112/75 112/75 O2 Sat by Pulse 97 99 Oximetry 07/03/18 07/03/18 03:30 03:33 Temperature 98.9 F Pulse Rate 91 H Respiratory 27 H 18 Rate Blood Pressure 115/77 O2 Sat by Pulse 97 Oximetry - Reevaluation(s) Reevaluation #1: Discussed all resulting patient. Patient states she has all of her meds at home. Patient is answering questions appropriately. Patient's labs unre markable. Patient will be discharged home. Patient given discharge instructions. She voiced understanding of discharge instructions. 07/03/18 04:10 ED Medical Decision Making - Lab Data Result diagrams: 07/03/18 03:02 07/03/18 03:02 - Medical Decision Making Patient is a 33-year-old female that presents emergency room with seizure activity. Patient compliant with her medications. Patient has not had any seizure activity in the ER. Stable entire time in ER. Patient is stable for discharge. Labs unremarkable. Patient given all her results. Patient instructed to continue all medications. - Differential Diagnosis seizure. Critical care attestation.: If time is entered above; I have spent that time in minutes in the direct care of this critically ill patient, excluding procedure time. ED Disposition Clinical Impression: Seizure Disposition: DC-01 TO HOME OR SELFCARE Is pt being admited?: No Does the pt Need Aspirin: No Condition: Stable Instructions: Epilepsy (ED), Recurrent Seizures Adult (ED) Additional Instructions: Patient to follow-up with primary care in 2-3 days. Patient to follow up with her neurologist in 2-3 days. Patient to take Tylenol or ibuprofen when necessary for pain. Patient to return to ER if condition worsens. Patient to take meds as directed. Patient to increase water. Patient to rest. Patient to avoid driving. Patient to avoid heavy lifting.. Patient to continue all meds. Referrals: PRIMARY CARE [Primary Care Provider] - 2-3 Days Time of Disposition: 04:14
[2018-07-03 03:33] VITALS: BP 115/77
[2018-07-03 03:41] LABS: Hematocrit 38.1 % (30.3-42.9); Hemoglobin 12.5 gm/dl (10.1-14.3); Mean Corpuscular HGB Conc 33 % (30-34); Mean Corpuscular Volume 90 fl (79-97); Platelet Count 172 K/mm3 (140-440); Red Blood Count 4.25 M/mm3 (3.65-5.03); Red Cell Distribution Width 14.4 % (13.2-15.2)
[2018-07-03 03:56] LABS: BUN/Creatinine Ratio 20; Blood Urea Nitrogen 16 mg/dL (7-17); Calcium 9.2 mg/dL (8.4-10.2); Hemolysis Index 15
== END 2018-07-03 06:13 | disposition home or self-care (01) ==
LOC: ED 01:42
DX: G40.909 Epilepsy, unspecified, not intractable, without status epilepticus (principal); F31.9 Bipolar disorder, unspecified; Z79.899 Other long term (current) drug therapy; F20.9 Schizophrenia, unspecified; Z91.09 Other allergy status, other than to drugs and biological substances
CPT/HCPCS: 36415; 80048; 82962; 85027; 94640

== ENCOUNTER 2018-07-04 19:19 | Emergency (ER) | payer MEDICAID | END 2018-07-04 20:20 | disposition left against medical advice (07) | LOC: ED 19:19 | DX: K14.6 Glossodynia (principal); Z53.21 Procedure and treatment not carried out due to patient leaving prior to being seen by health care provider ==

== ENCOUNTER 2018-08-12 11:23 | Inpatient (IN) | payer MEDICAID ==
[2018-08-12] MEDS ORDERED: NACL 0.9% 1000 ML 1,000 ML IV ONE (11:30)
[2018-08-12] MEDS ORDERED: NARCAN 2 MG/2 ML IV ONE (11:39)
[2018-08-12] MEDS ORDERED: NARCAN 2 MG/2 ML ONE (11:41)
[2018-08-12 12:01] LABS: Basophils % (Auto) 0.4 % (0.0-1.8); Eosinophils % (Auto) 0.4 % (0.0-4.3); Hematocrit 35.5 % (30.3-42.9); Hemoglobin 11.8 gm/dl (10.1-14.3); Lymphocytes # (Auto) 0.8 K/mm3 (1.2-5.4); Lymphocytes % (Auto) 22.2 % (13.4-35.0); Mean Corpuscular HGB Conc 33 % (30-34); Mean Corpuscular Volume 90 fl (79-97); Monocytes # (Auto) 0.4 K/mm3 (0.0-0.8); Monocytes % (Auto) 11.7 % (0.0-7.3); Platelet Count 166 K/mm3 (140-440); Red Blood Count 3.93 M/mm3 (3.65-5.03); Red Cell Distribution Width 14.7 % (13.2-15.2)
[2018-08-12 12:11] LABS: INR 0.94 (0.87-1.13)
--- NOTE | 2018-08-12 12:19 | Emergency Department Report ---
ED General Adult HPI - General Chief complaint: Overdose Stated complaint: OD Time Seen by Provider: 08/12/18 11:30 Source: patient, EMS Mode of arrival: Stretcher Limitations: No Limitations, Altered Mental Status - History of Present Illness Initial comments: This is a 33-year-old female with supposedly took a double dose of her medicines last night and may have taken excessive medicine this morning. Her medicines include Artane, Ativan, perphenazine, Topamax, Benadryl, Keppra and oxcarbazepine. She is unable to give a history at this time. Whether she had us intent of self harm is unknown but will be presumed. Glucose was normal in the field. I am told that Narcan was not given. No EMS record is available yet at this time. -: unknown - Related Data Home Medications Medication Instructions Recorded Confirmed Last Taken Perphenazine 16 mg PO DAILY 11/25/15 05/22/17 1 Day Ago ~09/17/16 Trihexyphenidyl [Artane] 2 mg PO TID 12/06/16 05/22/17 Unknown LORazepam [Ativan] 1 mg PO BID 05/22/17 05/22/17 Unknown Topiramate [Topamax] 100 mg PO BID 05/22/17 05/22/17 Unknown Previous Rx's Medication Instructions Recorded Last Taken Type OXcarbazepine [Oxtellar XR] 150 mg PO QDAY #30 tab.er.24h 09/19/16 Unknown Rx OXcarbazepine [Oxtellar XR] 600 mg PO DAILY #30 tab.er.24h 09/19/16 Unknown Rx diphenhydrAMINE [Benadryl CAP] 50 mg PO HS #10 capsule 09/19/16 Unknown Rx levETIRAcetam [Keppra TAB] 500 mg PO BID #60 tablet 07/15/17 Unknown Rx levETIRAcetam [Keppra] 500 mg PO BID #60 tablet 12/28/17 Unknown Rx Topiramate [Topamax] 100 mg PO BID #60 tablet 05/01/18 Unknown Rx levETIRAcetam [Keppra TAB] 750 mg PO BID #60 tablet 05/01/18 Unknown Rx Allergies Allergy/AdvReac Type Severity Reaction Status Date / Time turkey Allergy Unknown Verified 07/04/18 19:32 ED Review of Systems ROS: Stated complaint: OD Other details as noted in HPI Comment: Unobtainable due to pts medical conditions ED Past Medical Hx - Past Medical History Previous Medical History?: Yes Hx Seizures: Yes Hx Psychiatric Treatment: Yes (Pt currently has a therapist and psychiatrist) Additional medical history: Schizophrenia/bipolar. OBESITY - Social History Smoking Status: Never Smoker Substance Use Type: None - Medications Home Medications: Home Medications Medication Instructions Recorded Confirmed Last Taken Type Perphenazine 16 mg PO DAILY 11/25/15 05/22/17 1 Day Ago History ~09/17/16 OXcarbazepine [Oxtellar XR] 150 mg PO QDAY #30 tab.er.24h 09/19/16 05/22/17 Unk nown Rx OXcarbazepine [Oxtellar XR] 600 mg PO DAILY #30 tab.er.24h 09/19/16 05/22/17 Unknown Rx diphenhydrAMINE [Benadryl CAP] 50 mg PO HS #10 capsule 09/19/16 05/22/17 Unknown Rx Trihexyphenidyl [Artane] 2 mg PO TID 12/06/16 05/22/17 Unknown History LORazepam [Ativan] 1 mg PO BID 05/22/17 05/22/17 Unknown History Topiramate [Topamax] 100 mg PO BID 05/22/17 05/22/17 Unknown History levETIRAcetam [Keppra TAB] 500 mg PO BID #60 tablet 07/15/17 Unknown Rx levETIRAcetam [Keppra] 500 mg PO BID #60 tablet 12/28/17 Unknown Rx Topiramate [Topamax] 100 mg PO BID #60 tablet 05/01/18 Unknown Rx levETIRAcetam [Keppra TAB] 750 mg PO BID #60 tablet 05/01/18 Unknown Rx ED Physical Exam - General Limitations: Altered Mental Status General appearance: lethargic, obese (morbidly) - Head Head exam: Present: atraumatic - Eye Eye exam: Present: PERRL, EOMI (as testable). Absent: scleral icterus Pupils: Present: other (equal and midposition) - ENT ENT exam: Present: normal exam - Neck Neck exam: Present: normal inspection. Absent: tenderness, meningismus - Respiratory Respiratory exam: Present: normal lung sounds bilaterally, respiratory distress - Cardiovascular Cardiovascular Exam: Present: regular rate, normal rhythm. Absent: systolic murmur, diastolic murmur, rubs, gallop - GI/Abdominal GI/Abdominal exam: Absent: soft, distended, tenderness, guarding - Extremities Exam Extremities exam: Present: normal inspection. Absent: calf tenderness - Back Exam Back exam: Present: other (unable to examine) - Neurological Exam Neurological exam: Present: altered, CN II-XII intact (Limited exam). Absent: motor sensory deficit (not evident) - Psychiatric Psychiatric exam: Present: flat affect, other (lethargic) - Skin Skin exam: Present: warm, dry, intact, normal color. Absent: rash ED Course Vital Signs 08/12/18 11:51 Temperature 98.6 F Pulse Rate 89 Respiratory 16 Rate Blood Pressure 121/82 O2 Sat by Pulse 97 Oximetry - Reevaluation(s) Reevaluation #1: Some improvement in mental status but still lethargic. Discussed with Dr. Mcfarland and admitted. 08/12/18 15:53 ED Medical Decision Making - Lab Data Result diagrams: 08/12/18 11:43 08/12/18 11:43 Laboratory Results - last 24 hr 08/12/18 08/12/18 08/12/18 11:43 11:43 11:43 WBC 3.5 L RBC 3.93 Hgb 11.8 Hct 35.5 MCV 90 MCH 30 MCHC 33 RDW 14.7 Plt Count 166 Lymph % (Auto) 22.2 [place] % (Auto) 11.7 H Eos % (Auto) 0.4 Baso % (Auto) 0.4 Lymph # 0.8 L [place] # 0.4 Eos # 0.0 Baso # 0.0 Seg Neutrophils % 65.3 Seg Neutrophils # 2.3 PT 13.1 INR 0.94 Sodium 143 Potassium 4.3 Chloride 103.6 Carbon Dioxide 21 L Anion Gap 23 BUN 14 Creatinine 0.8 Estimated GFR > 60 BUN/Creatinine Ratio 18 Glucose 92 Calcium 9.7 Magnesium Total Bilirubin Direct Bilirubin AST ALT Alkaline Phosphatase Total Creatine Kinase 92 CK-MB (CK-2) < 1.0 CK-MB (CK-2) Rel Index 1.0 Total Protein Albumin Albumin/Globulin Ratio HCG, Qual Salicylates Acetaminophen Plasma/Serum Alcohol 08/12/18 08/12/18 08/12/18 11:43 11:43 11:43 WBC RBC Hgb Hct MCV MCH MCHC RDW Plt Count Lymph % (Auto) [place] % (Auto) Eos % (Auto) Baso % (Auto) Lymph # [place] # Eos # Baso # Seg Neutrophils % Seg Neutrophils # PT INR Sodium Potassium Chloride Carbon Dioxide Anion Gap BUN Creatinine Estimated GFR BUN/Creatinine Ratio Glucose Calcium Magnesium 1.40 L Total Bilirubin < 0.20 Direct Bilirubin < 0.2 AST 12 ALT 15 Alkaline Phosphatase 53 Total Creatine Kinase CK-MB (CK-2) CK-MB (CK-2) Rel Index Total Protein 7.0 Albumin 3.7 L Albumin/Globulin Ratio 1.1 HCG, Qual Salicylates < 0.3 L Acetaminophen < 5.0 L Plasma/Serum Alcohol 08/12/18 08/12/18 11:43 11:43 WBC RBC Hgb Hct MCV MCH MCHC RDW Plt Count Lymph % (Auto) [place] % (Auto) Eos % (Auto) Baso % (Auto) Lymph # [place] # Eos # Baso # Seg Neutrophils % Seg Neutrophils # PT INR Sodium Potassium Chloride Carbon Dioxide Anion Gap BUN Creatinine Estimated GFR BUN/Creatinine Ratio Glucose Calcium Magnesium Total Bilirubin Direct Bilirubin AST ALT Alkaline Phosphatase Total Creatine Kinase CK-MB (CK-2) CK-MB (CK-2) Rel Index Total Protein Albumin Albumin/Globulin Ratio HCG, Qual Negative Salicylates Acetaminophen Plasma/Serum Alcohol < 0.01 - EKG Data -: EKG Interpreted by Id EKG shows normal: sinus rhythm, axis, intervals, QRS complexes, ST-T waves Rate: normal - EKG Data Interpretation: no acute changes - Radiology Data Radiology results: report reviewed CXR NAD Critical care attestation.: If time is entered above; I have spent that time in minutes in the direct care of this critically ill patient, excluding procedure time. ED Disposition Clinical Impression: Acute encephalopathy Overdose Qualifiers: Encounter type: initial encounter Injury intent: accidental or unintentional Qualified Code(s): T50.901A - Poisoning by unspecified drugs, medicaments and biological substances, accidental (unintentional), initial encounter Schizophrenia Qualifiers: Schizophrenia type: unspecified Qualified Code(s): F20.9 - Schizophrenia, unspecified Disposition: 09 OP ADMIT IP TO THIS HOSP Is pt being admited?: Yes Does the pt Need Aspirin: Yes Condition: Stable Time of Disposition: 15:55
[2018-08-12 12:40] LABS: BUN/Creatinine Ratio 18; Blood Urea Nitrogen 14 mg/dL (7-17); Calcium 9.7 mg/dL (8.4-10.2); Hemolysis Index 19
[2018-08-12 12:42] LABS: Alanine Aminotransferase 15 units/L (7-56); Albumin 3.7 g/dL (3.9-5); Creatine Kinase MB < 1.0 ng/mL (0.0-4.0)
[2018-08-12 12:45] LABS: Bilirubin,Direct < 0.2 mg/dL (0-0.2)
[2018-08-12] MEDS ORDERED: MAGNESIUM SULFATE 2GM/50ML 2 GM/50 ML BAG IV ONE (13:17)
--- NOTE | 2018-08-12 14:00 | XRay Report ---
AP CHEST: HISTORY: Difficulty in breathing AP view of the chest demonstrates a normal mediastinal and cardiac contour with clear lungs and normal bony and soft tissue structures. No significant change since 09/17/16. IMPRESSION: Unremarkable AP chest.
[2018-08-12 14:07] LABS: HCG Qualitative,Urine Negative (Negative)
[2018-08-12 14:14] LABS: Bacteria,Urine 1+ /HPF (Negative); Bilirubin,Urine NEG (Negative); Blood,Urine SM (Negative); Color,Urine Yellow (Yellow); Mucus,Urine 2+ /HPF; Protein,Urine <15 mg/dL mg/dL (Negative); Urobilinogen,Urine < 2.0 mg/dL (<2.0)
[2018-08-12 14:16] LABS: Amphetamine Screen,Urine PRESUMPTIVE NEGATIVE; Cannabinoid Screen,Urine PRESUMPTIVE NEGATIVE; Cocaine Screen,Urine PRESUMPTIVE NEGATIVE; Methadone Screen,Urine PRESUMPTIVE NEGATIVE; Opiate Screen,Urine PRESUMPTIVE NEGATIVE
[2018-08-12 14:28] LABS: Benzodiazepines Screen,Urine PRESUMPTIVE POSITIVE
[2018-08-12] MEDS ORDERED: ASPIRIN PO ONE (16:55)
[2018-08-12] MEDS ORDERED: DILAUDID IV PRN (17:33)
[2018-08-12] MEDS ORDERED: SODIUM CHLORIDE FLUSH SYRINGE 10 ML IV PRN (17:33)
[2018-08-12] MEDS ORDERED: ZOFRAN IV PRN (17:33)
[2018-08-12] MEDS ORDERED: TYLENOL PO PRN (17:33)
[2018-08-12] MEDS ORDERED: IBUPROFEN PO PRN (17:33)
--- NOTE | 2018-08-12 17:33 | History and Physical Report ---
History of Present Illness Date of examination: 08/12/18 Date of admission: 08/12/18 15:51 Medications and Allergies Allergies Allergy/AdvReac Type Severity Reaction Status Date / Time turkey Allergy Unknown Verified 07/04/18 19:32 Home Medications Medication Instructions Recorded Confirmed Last Taken Type Perphenazine 16 mg PO DAILY 11/25/15 05/22/17 1 Day Ago History ~09/17/16 OXcarbazepine [Oxtellar XR] 150 mg PO QDAY #30 tab.er.24h 09/19/16 05/22/17 Unknown Rx OXcarbazepine [Oxtellar XR] 600 mg PO DAILY #30 tab.er.24h 09/19/16 05/22/17 Unknown Rx diphenhydrAMINE [Benadryl CAP] 50 mg PO HS #10 capsule 09/19/16 05/22/17 Unknown Rx Trihexyphenidyl [Artane] 2 mg PO TID 12/06/16 05/22/17 Unknown History LORazepam [Ativan] 1 mg PO BID 05/22/17 05/22/17 Unknown History Topiramate [Topamax] 100 mg PO BID 05/22/17 05/22/17 Unknown History levETIRAcetam [Keppra TAB] 500 mg PO BID #60 tablet 07/15/17 Unknown Rx levETIRAcetam [Keppra] 500 mg PO BID #60 tablet 12/28/17 Unknown Rx Topiramate [Topamax] 100 mg PO BID #60 tablet 05/01/18 Unknown Rx levETIRAcetam [Keppra TAB] 750 mg PO BID #60 tablet 05/01/18 Unknown Rx Active Meds: Active Medications Sodium Chloride (Nacl 0.9% 1000 Ml) 1,000 mls @ 125 mls/hr IV ONCE ONE Stop: 08/12/18 19:29 Last Admin: 08/12/18 11:44 Dose: 125 mls/hr Documented by: Exam - Constitutional Vitals: Temp Pulse Resp BP Pulse Ox 98.6 F 89 16 121/82 97 08/12/18 11:51 08/12/18 11:51 08/12/18 11:51 08/12/18 11:51 08/12/18 11:51 Results - Labs CBC & Chem 7: 08/12/18 11:43 08/12/18 11:43 Labs: Laboratory Last Values WBC 3.5 K/mm3 (4.5-11.0) L 08/12/18 11:43 RBC 3.93 M/mm3 (3.65-5.03) 08/12/18 11:43 Hgb 11.8 gm/dl (10.1-14.3) 08/12/18 11:43 Hct 35.5 % (30.3-42.9) 08/12/18 11:43 MCV 90 fl (79-97) 08/12/18 11:43 MCH 30 pg (28-32) 08/12/18 11:43 MCHC 33 % (30-34) 08/12/18 11:43 RDW 14.7 % (13.2-15.2) 08/12/18 11:43 Plt Count 166 K/mm3 (140-440) 08/12/18 11:43 Lymph % (Auto) 22.2 % (13.4-35.0) 08/12/18 11:43 [place] % (Auto) 11.7 % (0.0-7.3) H 08/12/18 11:43 Eos % (Auto) 0.4 % (0.0-4.3) 08/12/18 11:43 Baso % (Auto) 0.4 % (0.0-1.8) 08/12/18 11:43 Lymph # 0.8 K/mm3 (1.2-5.4) L 08/12/18 11:43 [place] # 0.4 K/mm3 (0.0-0.8) 08/12/18 11:43 Eos # 0.0 K/mm3 (0.0-0.4) 08/12/18 11:43 Baso # 0.0 K/mm3 (0.0-0.1) 08/12/18 11:43 Seg Neutrophils % 65.3 % (40.0-70.0) 08/12/18 11:43 Seg Neutrophils # 2.3 K/mm3 (1.8-7.7) 08/12/18 11:43 PT 13.1 Sec. (12.2-14.9) 08/12/18 11:43 INR 0.94 (0.87-1.13) 08/12/18 11:43 Sodium 143 mmol/L (137-145) 08/12/18 11:43 Potassium 4.3 mmol/L (3.6-5.0) 08/12/18 11:43 Chloride 103.6 mmol/L (98-107) 08/12/18 11:43 Carbon Dioxide 21 mmol/L (22-30) L 08/12/18 11:43 23 mmol/L 08/12/18 11:43 BUN 14 mg/dL (7-17) 08/12/18 11:43 0.8 mg/dL (0.7-1.2) 08/12/18 11:43 Estimated GFR > 60 ml/min 08/12/18 11:43 18 % 08/12/18 11:43 Glucose 92 mg/dL (65-100) 08/12/18 11:43 Calcium 9.7 mg/dL (8.4-10.2) 08/12/18 11:43 Magnesium 1.40 mg/dL (1.7-2.3) L 08/12/18 11:43 < 0.20 mg/dL (0.1-1.2) 08/12/18 11:43 < 0.2 mg/dL (0-0.2) 08/12/18 11:43 AST 12 units/L (5-40) 08/12/18 11:43 ALT 15 units/L (7-56) 08/12/18 11:43 53 units/L (35-129) 08/12/18 11:43 92 units/L (30-135) 08/12/18 11:43 CK-MB (CK-2) < 1.0 ng/mL (0.0-4.0) 08/12/18 11:43 CK-MB (CK-2) Rel Index 1.0 (0-4) 08/12/18 11:43 7.0 g/dL (6.3-8.2) 08/12/18 11:43 3.7 g/dL (3.9-5) L 08/12/18 11:43 1.1 % 08/12/18 11:43 HCG, Qual Negative (Negative) 08/12/18 11:43 Yellow (Yellow) 08/12/18 13:41 Slightly-cloudy (Clear) 08/12/18 13:41 5.0 (5.0-7.0) 08/12/18 13:41 Ur Specific [employer] 1.025 (1.003-1.030) 08/12/18 13:41 <15 mg/dl mg/dL (Negative) 08/12/18 13:41 Neg mg/dL (Negative) 08/12/18 13:41 20 mg/dL (Negative) 08/12/18 13:41 Sm (Negative) 08/12/18 13:41 Pos (Negative) 08/12/18 13:41 Ur Reducing Substances Not Reportable 08/12/18 13:41 Neg (Negative) 08/12/18 13:41 Not Reportable 08/12/18 13:41 < 2.0 mg/dL (<2.0) 08/12/18 13:41 Ur Leukocyte Esterase Mod (Negative) 08/12/18 13:41 18.0 /HPF (0.0-6.0) H 08/12/18 13:41 2.0 /HPF (0.0-6.0) 08/12/18 13:41 U Epithel Cells (Auto) 2.0 /HPF (0-13.0) 08/12/18 13:41 1+ /HPF (Negative) 08/12/18 13:41 2+ /HPF 08/12/18 13:41 Urine HCG, Qual Negative (Negative) 08/12/18 13:41 Salicylates < 0.3 mg/dL (2.8-20.0) L 08/12/18 11:43 Presumptive negative 08/12/18 13:41 Presumptive negative 08/12/18 13:41 Acetaminophen < 5.0 ug/mL (10.0-30.0) L 08/12/18 11:43 Ur Barbiturates Screen Presumptive negative 08/12/18 13:41 Ur Phencyclidine Scrn Presumptive positive 08/12/18 13:41 Ur Amphetamines Screen Presumptive negative 08/12/18 13:41 U Benzodiazepines Scrn Presumptive positive 08/12/18 13:41 Presumptive negative 08/12/18 13:41 U Marijuana (THC) Screen Presumptive negative 08/12/18 13:41 Disclamer 08/12/18 13:41 Plasma/Serum Alcohol < 0.01 % (0-0.07) 08/12/18 11:43
[2018-08-12] MEDS ORDERED: ASPIRIN ONE (17:41)
[2018-08-12] MEDS ORDERED: PEPCID IV SCH (22:00)
[2018-08-13] MEDS ORDERED: MUCINEX ER PO SCH (01:00)
[2018-08-13] MEDS: SODIUM CHLORIDE FLUSH SYRINGE 10 ML IV SCH ×3 (04:24→21:50)
--- NOTE | 2018-08-13 06:26 | Event Note ---
Date: 08/12/18 Accidental drug ovedose See H/p in reports Observation consult for vlearance
--- NOTE | 2018-08-13 08:28 | History and Physical Report ---
CHIEF COMPLAINT: Accidental overdose of medications. HISTORY OF PRESENT ILLNESS: A 33-year-old -[place] female, very poor historian, comes in for taking more medications than the usual to get sleep. No suicidal or homicidal intent. The patient apparently took Artane, Ativan, perphenazine, Topamax, Benadryl, Keppra and oxcarbazepine. The patient is drowsy. No intent to self-harm. The patient's glucose level was normal. Slightly lethargic. No fever or chills. No chest pain. No seizures. PAST MEDICAL HISTORY: Significant for seizure disorder, schizophrenia, bipolar disorder and obesity. PAST SURGICAL HISTORY: None. SOCIAL HISTORY: Does not smoke. No alcohol. FAMILY HISTORY: Hypertension. CURRENT MEDICATIONS: Keppra 750 b.i.d., oxcarbazepine Oxtellar 150 mg p.o. daily. REVIEW OF SYSTEMS: Significant for excessive drowsiness. Otherwise, no seizures. Otherwise, review of systems is negative. PHYSICAL EXAMINATION: GENERAL: Young female, cooperative during examination. VITAL SIGNS: Blood pressure was 122/85, temperature 97.5, pulse is 91, respirations 21. HEENT: Unremarkable. Pupils equal and reactive. NECK: Supple, no lymphadenopathy, no thyromegaly. LUNGS: Clear to auscultation and percussion. Good air entry. CARDIOVASCULAR: S1, S2 heard. No gallop, no murmur, no rub. Apical impulse in left fifth intercostal space in midclavicular line. ABDOMEN: Soft and benign. No hepatosplenomegaly. No guarding, no rigidity. Hernial orifices are normal. EXTREMITIES: Good pedal pulses. No pedal edema. CENTRAL NERVOUS SYSTEM: Alert and oriented x 4. Drowsy. EKG shows normal sinus rhythm, normal ST-T waves. Chest x-ray, no acute process. ASSESSMENT AND PLAN: 1. Accidental drug overdose. The patient to be admitted for observation for 23 hours, IV fluids. Mental health consult requested. 2. Seizure disorder. Continue Keppra. 3. Bipolar disorder. Continue psych medicines. 4. Deep venous thrombosis prophylaxis, Lovenox 40 mg subcutaneous daily. JOB# [id number] [facility]AND[facility] DASILVAD
--- NOTE | 2018-08-13 08:51 | Progress Note ---
Assessment and Plan Assessment and plan: Patient is a 33-year-old woman with a history of Schizophrenia, bipolar disorder, seizure disorder and morbid obesity BMI 49.6 who presented to [facility] ED with AMS after supposedly taking a double dose of her medicines the night prior to presentation and may have taken excessive medicine the morning of pres entation to the ED. Her medicines include Artane, Ativan, perphenazine, Topamax, Benadryl, Keppra and oxcarbazepine. She is unable to give a history at this time. Whether she had us intent of self harm is unknown but will be presumed. Glucose was normal in the field. I am told that Narcan was not given. No EMS record is available yet at this time. 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 Follow-up on current diagnosis of Drug Overdose. No overnight events reported to me. Patient denies any chest pain, shortness breath, nausea/vomiting or severe headaches. Imaging, nursing note, chart, labs and old chart reviewed. Discussed with patient. Hospitalist Physical - Physical exam Narrative exam: Gen: WDWN, NAD, Awake, Alert, Orientated, bmi 49.6 HEENT: NCAT, EOMI, PERRL, OP Clear Neck: supple, no adenopathy, no thyromegaly, no JVD CVS/Heart: RRR, normal S1S2, pulses present bilaterally Chest/Lungs: CTA B, Symmetrical chest expansion, good air entry bilaterally GI/Abdomen: soft, NTND, good bowel sounds, no guarding or rebound /Bladder: no suprapubic tenderness, no CVA or paraspinal tenderness Extermity/Skin: no c/c/e, no obvious rash MSK: FROM x 4 Neuro: CN 2-12 grossly intact, no new focal deficits Psych: calm - Constitutional Vitals: Temp Pulse Resp BP Pulse Ox 98.5 F 75 20 124/83 96 08/13/18 05:54 08/13/18 05:54 08/13/18 05:54 08/13/18 05:54 08/13/18 05:54 Results - Labs CBC & Chem 7: 08/13/18 13:19 08/12/18 11:43 Labs: Laboratory Last Values WBC 3.5 K/mm3 (4.5-11.0) L 08/12/18 11:43 RBC 3.93 M/mm3 (3.65-5.03) 08/12/18 11:43 Hgb 11.8 gm/dl (10.1-14.3) 08/12/18 11:43 Hct 35.5 % (30.3-42.9) 08/12/18 11:43 MCV 90 fl (79-97) 08/12/18 11:43 MCH 30 pg (28-32) 08/12/18 11:43 MCHC 33 % (30-34) 08/12/18 11:43 RDW 14.7 % (13.2-15.2) 08/12/18 11:43 Plt Count 166 K/mm3 (140-440) 08/12/18 11:43 Lymph % (Auto) 22.2 % (13.4-35.0) 08/12/18 11:43 [place] % (Auto) 11.7 % (0.0-7.3) H 08/12/18 11:43 Eos % (Auto) 0.4 % (0.0-4.3) 08/12/18 11:43 Baso % (Auto) 0.4 % (0.0-1.8) 08/12/18 11:43 Lymph # 0.8 K/mm3 (1.2-5.4) L 08/12/18 11:43 [place]irt # 0.4 K/mm3 (0.0-0.8) 08/12/18 11:43 Eos # 0.0 K/mm3 (0.0-0.4) 08/12/18 11:43 Baso # 0.0 K/mm3 (0.0-0.1) 08/12/18 11:43 Seg Neutrophils % 65.3 % (40.0-70.0) 08/12/18 11:43 Seg Neutrophils # 2.3 K/mm3 (1.8-7.7) 08/12/18 11:43 PT 13.1 Sec. (12.2-14.9) 08/12/18 11:43 INR 0.94 (0.87-1.13) 08/12/18 11:43 POC ABG pH 7.413 (7.35-7.45) 08/12/18 19:04 POC ABG pCO2 41.1 (35-45) 08/12/18 19:04 POC ABG pO2 76 (80-105) L 08/12/18 19:04 POC ABG HCO3 26.3 (22-26 mml/L) 08/12/18 19:04 POC ABG Total CO2 28 (23-27mmol/L) 08/12/18 19:04 POC ABG O2 Sat 95 08/12/18 19:04 POC ABG Base Excess 2 ((-2) - (+3)mmol/L) 08/12/18 19:04 21 % 08/12/18 19:04 Sodium 143 mmol/L (137-145) 08/12/18 11:43 Potassium 4.3 mmol/L (3.6-5.0) 08/12/18 11:43 Chloride 103.6 mmol/L (98-107) 08/12/18 11:43 Carbon Dioxide 21 mmol/L (22-30) L 08/12/18 11:43 23 mmol/L 08/12/18 11:43 BUN 14 mg/dL (7-17) 08/12/18 11:43 0.8 mg/dL (0.7-1.2) 08/12/18 11:43 Estimated GFR > 60 ml/min 08/12/18 11:43 18 % 08/12/18 11:43 Glucose 92 mg/dL (65-100) 08/12/18 11:43 5.4 % (4-6) 08/12/18 17:38 Calcium 9.7 mg/dL (8.4-10.2) 08/12/18 11:43 Magnesium 1.40 mg/dL (1.7-2.3) L 08/12/18 11:43 < 0.20 mg/dL (0.1-1.2) 08/12/18 11:43 < 0.2 mg/dL (0-0.2) 08/12/18 11:43 AST 12 units/L (5-40) 08/12/18 11:43 ALT 15 units/L (7-56) 08/12/18 11:43 53 units/L (35-129) 08/12/18 11:43 92 units/L (30-135) 08/12/18 11:43 CK-MB (CK-2) < 1.0 ng/mL (0.0-4.0) 08/12/18 11:43 CK-MB (CK-2) Rel Index 1.0 (0-4) 08/12/18 11:43 7.0 g/dL (6.3-8.2) 08/12/18 11:43 3.7 g/dL (3.9-5) L 08/12/18 11:43 1.1 % 08/12/18 11:43 HCG, Qual Negative (Negative) 08/12/18 11:43 Yellow (Yellow) 08/12/18 13:41 Slightly-cloudy (Clear) 08/12/18 13:41 5.0 (5.0-7.0) 08/12/18 13:41 Ur Specific [place] 1.025 (1.003-1.030) 08/12/18 13:41 <15 mg/dl mg/dL (Negative) 08/12/18 13:41 Neg mg/dL (Negative) 08/12/18 13:41 20 mg/dL (Negative) 08/12/18 13:41 Sm (Negative) 08/12/18 13:41 Pos (Negative) 08/12/18 13:41 Ur Reducing Substances Not Reportable 08/12/18 13:41 Neg (Negative) 08/12/18 13:41 Not Reportable 08/12/18 13:41 < 2.0 mg/dL (<2.0) 08/12/18 13:41 Ur Leukocyte Esterase Mod (Negative) 08/12/18 13:41 18.0 /HPF (0.0-6.0) H 08/12/18 13:41 2.0 /HPF (0.0-6.0) 08/12/18 13:41 U Epithel Cells (Auto) 2.0 /HPF (0-13.0) 08/12/18 13:41 1+ /HPF (Negative) 08/12/18 13:41 2+ /HPF 08/12/18 13:41 Urine HCG, Qual Negative (Negative) 08/12/18 13:41 Salicylates < 0.3 mg/dL (2.8-20.0) L 08/12/18 11:43 Presumptive negative 08/12/18 13:41 Presumptive negative 08/12/18 13:41 Acetaminophen < 5.0 ug/mL (10.0-30.0) L 08/12/18 11:43 Ur Barbiturates Screen Presumptive negative 08/12/18 13:41 Ur Phencyclidine Scrn Presumptive positive 08/12/18 13:41 Ur Amphetamines Screen Presumptive negative 08/12/18 13:41 U Benzodiazepines Scrn Presumptive positive 08/12/18 13:41 Presumptive negative 08/12/18 13:41 U Marijuana (THC) Screen Presumptive negative 08/12/18 13:41 Disclamer 08/12/18 13:41 Plasma/Serum Alcohol < 0.01 % (0-0.07) 08/12/18 11:43 Active Medications - Current Medications Current Medications: Generic Name Dose Route Start Last Admin Trade Name Freq PRN Reason Stop Dose Admin Acetaminophen 650 mg 08/12/18 17:33 Tylenol PO Q4H PRN Pain MILD(1-3)/Fever >100.5/TONY Enoxaparin Sodium 40 mg 08/13/18 22:00 Lovenox SUB-Q QDAY@2200 [facility] Famotidine 20 mg 08/13/18 10:00 Pepcid PO BID MANUELA Hydromorphone HCl 0.25 mg 08/12/18 17:33 Dilaudid IV Q3H PRN Pain, Moderate (4-6) Sodium Chloride 1,000 mls @ 75 mls/hr 08/12/18 18:00 Nacl 0.9% 1000 Ml IV DIRECT [facility] Ceftriaxone Sodium 1 gm in 50 mls @ 100 mls/hr 08/13/18 10:00 Rocephin/Ns 1 Gm/50 Ml IV Q24HR [facility] Protocol Levetiracetam 750 mg 08/13/18 10:00 Keppra PO BID [facility] Miscellaneous Medication 600 mg 08/13/18 10:00 Oxcarbazepine [Oxtellar Xr] PO DAILY [facility] Ondansetron HCl 4 mg 08/12/18 17:33 Zofran IV Q8H PRN Nausea And Vomiting Sodium Chloride 10 ml 08/12/18 22:00 08/13/18 04:24 Sodium Chloride Flush Syringe 10 Ml IV Not Given BID [facility] Sodium Chloride 10 ml 08/12/18 17:33 Sodium Chloride Flush Syringe 10 Ml IV PRN PRN LINE FLUSH Topiramate 100 mg 08/13/18 10:00 Topamax PO BID [facility] Trihexyphenidyl HCl 2 mg 08/13/18 08:00 Artane PO TID [facility]
[2018-08-13] MEDS ORDERED: NON-FORMULARY (Levetiracetam [Keppra Tab] 750 MG) PO SCH (10:00)
[2018-08-13] MEDS: PEPCID PO SCH ×2 (10:18→22:01)
[2018-08-13] MEDS: ARTANE PO SCH ×3 (10:18→21:59)
[2018-08-13] MEDS: KEPPRA PO SCH ×2 (10:18→21:59)
[2018-08-13] MEDS: TOPAMAX PO SCH ×2 (10:19→22:01)
[2018-08-13] MEDS: ROCEPHIN/NS 1 GM/50 ML 1 GM/50 ML BAG IV SCH (10:20)
[2018-08-13 14:21] LABS: Basophils % (Auto) 0.7 % (0.0-1.8); Eosinophils % (Auto) 1.3 % (0.0-4.3); Hematocrit 38.4 % (30.3-42.9); Hemoglobin 12.9 gm/dl (10.1-14.3); Lymphocytes # (Auto) 0.9 K/mm3 (1.2-5.4); Lymphocytes % (Auto) 29.5 % (13.4-35.0); Mean Corpuscular HGB Conc 34 % (30-34); Mean Corpuscular Volume 89 fl (79-97); Monocytes # (Auto) 0.3 K/mm3 (0.0-0.8); Monocytes % (Auto) 10.3 % (0.0-7.3); Platelet Count 172 K/mm3 (140-440); Red Cell Distribution Width 14.5 % (13.2-15.2)
[2018-08-13 14:38] LABS: Alanine Aminotransferase 16 units/L (7-56); BUN/Creatinine Ratio 15; Blood Urea Nitrogen 12 mg/dL (7-17); Calcium 9.1 mg/dL (8.4-10.2); Hemolysis Index 59
[2018-08-13] MEDS: LOVENOX SUB-Q SCH (21:56)
[2018-08-14] MEDS: ARTANE PO SCH ×3 (08:03→20:41)
--- NOTE | 2018-08-14 08:39 | Progress Note ---
Assessment and Plan Assessment and plan: Patient is a 33-year-old woman with a history of Schizophrenia, bipolar disorder, seizure disorder and morbid obesity BMI 49.6 who presented to [facility] ED with AMS after supposedly taking a double dose of her medicines the night prior to presentation and may have taken excessive medicine the morning of pres entation to the ED. Her medicines include Artane, Ativan, perphenazine, Topamax, Benadryl, Keppra and oxcarbazepine. She is unable to give a history at this time. Whether she had us intent of self harm is unknown but will be presumed. Glucose was normal in the field. I am told that Narcan was not given. No EMS record is available yet at this time. 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 Follow-up on current diagnosis of Drug Overdose. No overnight events reported to me. Patient denies any chest pain, shortness br eath, nausea/vomiting or severe headaches. Imaging, nursing note, chart, labs and old chart reviewed. Discussed with patient. Hospitalist Physical - Physical exam Narrative exam: Gen: WDWN, NAD, Awake, Alert, Orientated, bmi 49.6 HEENT: NCAT, EOMI, PERRL, OP Clear Neck: supple, no adenopathy, no thyromegaly, no JVD CVS/Heart: RRR, normal S1S2, pulses present bilaterally Chest/Lungs: CTA B, Symmetrical chest expansion, good air entry bilaterally GI/Abdomen: soft, NTND, good bowel sounds, no guarding or rebound /Bladder: no suprapubic tenderness, no CVA or paraspinal tenderness Extermity/Skin: no c/c/e, no obvious rash MSK: FROM x 4 Neuro: CN 2-12 grossly intact, no new focal deficits Psych: calm - Constitutional Vitals: Temp Pulse Resp BP Pulse Ox 98.7 F 70 18 92/64 98 08/14/18 07:12 08/14/18 07:09 08/14/18 07:12 08/14/18 07:12 08/14/18 07:09 Results - Labs CBC & Chem 7: 08/13/18 13:19 08/13/18 13:19 Labs: Laboratory Last Values WBC 3.1 K/mm3 (4.5-11.0) L 08/13/18 13:19 RBC 4.30 M/mm3 (3.65-5.03) 08/13/18 13:19 Hgb 12.9 gm/dl (10.1-14.3) 08/13/18 13:19 Hct 38.4 % (30.3-42.9) 08/13/18 13:19 MCV 89 fl (79-97) 08/13/18 13:19 MCH 30 pg (28-32) 08/13/18 13:19 MCHC 34 % (30-34) 08/13/18 13:19 RDW 14.5 % (13.2-15.2) 08/13/18 13:19 Plt Count 172 K/mm3 (140-440) 08/13/18 13:19 Lymph % (Auto) 29.5 % (13.4-35.0) 08/13/18 13:19 [place] % (Auto) 10.3 % (0.0-7.3) H 08/13/18 13:19 Eos % (Auto) 1.3 % (0.0-4.3) 08/13/18 13:19 Baso % (Auto) 0.7 % (0.0-1.8) 08/13/18 13:19 Lymph # 0.9 K/mm3 (1.2-5.4) L 08/13/18 13:19 [place] # 0.3 K/mm3 (0.0-0.8) 08/13/18 13:19 Eos # 0.0 K/mm3 (0.0-0.4) 08/13/18 13:19 Baso # 0.0 K/mm3 (0.0-0.1) 08/13/18 13:19 Seg Neutrophils % 58.2 % (40.0-70.0) 08/13/18 13:19 Seg Neutrophils # 1.8 K/mm3 (1.8-7.7) 08/13/18 13:19 PT 13.1 Sec. (12.2-14.9) 08/12/18 11:43 INR 0.94 (0.87-1.13) 08/12/18 11:43 POC ABG pH 7.413 (7.35-7.45) 08/12/18 19:04 POC ABG pCO2 41.1 (35-45) 08/12/18 19:04 POC ABG pO2 76 (80-105) L 08/12/18 19:04 POC ABG HCO3 26.3 (22-26 mml/L) 08/12/18 19:04 POC ABG Total CO2 28 (23-27mmol/L) 08/12/18 19:04 POC ABG O2 Sat 95 08/12/18 19:04 POC ABG Base Excess 2 ((-2) - (+3)mmol/L) 08/12/18 19:04 21 % 08/12/18 19:04 Sodium 139 mmol/L (137-145) 08/13/18 13:19 Potassium 4.9 mmol/L (3.6-5.0) 08/13/18 13:19 Chloride 102.2 mmol/L (98-107) 08/13/18 13:19 Carbon Dioxide 22 mmol/L (22-30) 08/13/18 13:19 20 mmol/L 08/13/18 13:19 BUN 12 mg/dL (7-17) 08/13/18 13:19 0.8 mg/dL (0.7-1.2) 08/13/18 13:19 Estimated GFR > 60 ml/min 08/13/18 13:19 15 % 08/13/18 13:19 Glucose 89 mg/dL (65-100) 08/13/18 13:19 5.4 % (4-6) 08/12/18 17:38 Calcium 9.1 mg/dL (8.4-10.2) 08/13/18 13:19 Magnesium 1.40 mg/dL (1.7-2.3) L 08/12/18 11:43 0.20 mg/dL (0.1-1.2) 08/13/18 13:19 < 0.2 mg/dL (0-0.2) 08/12/18 11:43 AST 16 units/L (5-40) 08/13/18 13:19 ALT 16 units/L (7-56) 08/13/18 13:19 58 units/L (35-129) 08/13/18 13:19 92 units/L (30-135) 08/12/18 11:43 CK-MB (CK-2) < 1.0 ng/mL (0.0-4.0) 08/12/18 11:43 CK-MB (CK-2) Rel Index 1.0 (0-4) 08/12/18 11:43 7.1 g/dL (6.3-8.2) 08/13/18 13:19 4.0 g/dL (3.9-5) 08/13/18 13:19 1.3 % 08/13/18 13:19 HCG, Qual Negative (Negative) 08/12/18 11:43 Yellow (Yellow) 08/12/18 13:41 Slightly-cloudy (Clear) 08/12/18 13:41 5.0 (5.0-7.0) 08/12/18 13:41 Ur Specific [place] 1.025 (1.003-1.030) 08/12/18 13:41 <15 mg/dl mg/dL (Negative) 08/12/18 13:41 Neg mg/dL (Negative) 08/12/18 13:41 20 mg/dL (Negative) 08/12/18 13:41 Sm (Negative) 08/12/18 13:41 Pos (Negative) 08/12/18 13:41 Ur Reducing Substances Not Reportable 08/12/18 13:41 Neg (Negative) 08/12/18 13:41 Not Reportable 08/12/18 13:41 < 2.0 mg/dL (<2.0) 08/12/18 13:41 Ur Leukocyte Esterase Mod (Negative) 08/12/18 13:41 18.0 /HPF (0.0-6.0) H 08/12/18 13:41 2.0 /HPF (0.0-6.0) 08/12/18 13:41 U Epithel Cells (Auto) 2.0 /HPF (0-13.0) 08/12/18 13:41 1+ /HPF (Negative) 08/12/18 13:41 2+ /HPF 08/12/18 13:41 Urine HCG, Qual Negative (Negative) 08/12/18 13:41 Salicylates < 0.3 mg/dL (2.8-20.0) L 08/12/18 11:43 Presumptive negative 08/12/18 13:41 Presumptive negative 08/12/18 13:41 Acetaminophen < 5.0 ug/mL (10.0-30.0) L 08/12/18 11:43 Ur Barbiturates Screen Presumptive negative 08/12/18 13:41 Ur Phencyclidine Scrn Presumptive positive 08/12/18 13:41 Ur Amphetamines Screen Presumptive negative 08/12/18 13:41 U Benzodiazepines Scrn Presumptive positive 08/12/18 13:41 Presumptive negative 08/12/18 13:41 U Marijuana (THC) Screen Presumptive negative 08/12/18 13:41 Disclamer 08/12/18 13:41 Plasma/Serum Alcohol < 0.01 % (0-0.07) 08/12/18 11:43 Active Medications - Current Medications Current Medications: Generic Name Dose Route Start Last Admin Trade Name Freq PRN Reason Stop Dose Admin Acetaminophen 650 mg 08/12/18 17:33 Tylenol PO Q4H PRN Pain MILD(1-3)/Fever >100.5/TONY Enoxaparin Sodium 40 mg 08/13/18 22:00 08/13/18 21:56 Lovenox SUB-Q 40 mg QDAY@2200 MANUELA Administration Famotidine 20 mg 08/13/18 10:00 08/13/18 22:01 Pepcid PO 20 mg BID MANUELA Administration Hydromorphone HCl 0.25 mg 08/12/18 17:33 Dilaudid IV Q3H PRN Pain, Moderate (4-6) Sodium Chloride 1,000 mls @ 75 mls/hr 08/12/18 18:00 Nacl 0.9% 1000 Ml IV DIRECT MANUELA Ceftriaxone Sodium 1 gm in 50 mls @ 100 mls/hr 08/13/18 10:00 08/13/18 10:20 Rocephin/Ns 1 Gm/50 Ml IV Not Given Q24HR [facility] Protocol Levetiracetam 750 mg 08/13/18 10:00 08/13/18 21:59 Keppra PO 750 mg BID MANUELA Administration Miscellaneous Medication 600 mg 08/13/18 10:00 Oxcarbazepine [Oxtellar Xr] PO DAILY [facility] Ondansetron HCl 4 mg 08/12/18 17:33 Zofran IV Q8H PRN Nausea And Vomiting Sodium Chloride 10 ml 08/12/18 22:00 08/13/18 21:50 Sodium Chloride Flush Syringe 10 Ml IV Not Given BID MANUELA Sodium Chloride 10 ml 08/12/18 17:33 Sodium Chloride Flush Syringe 10 Ml IV PRN PRN LINE FLUSH Topiramate 100 mg 08/13/18 10:00 08/13/18 22:01 Topamax PO 100 mg BID MANUELA Administration Trihexyphenidyl HCl 2 mg 08/13/18 08:00 08/14/18 08:03 Artane PO 2 mg TID MANUELA Administration
[2018-08-14] MEDS: PEPCID PO SCH ×2 (09:31→22:02)
[2018-08-14] MEDS: SODIUM CHLORIDE FLUSH SYRINGE 10 ML IV SCH ×2 (09:32→22:03)
[2018-08-14] MEDS: TOPAMAX PO SCH ×2 (09:32→22:02)
[2018-08-14] MEDS: KEPPRA PO SCH ×2 (09:32→22:03)
[2018-08-14] MEDS: ROCEPHIN/NS 1 GM/50 ML 1 GM/50 ML BAG IV SCH (09:33)
--- NOTE | 2018-08-14 19:09 | Consultation ---
History of Present Illness - Reason for Consult Consult date: 08/14/18 Reason for consult: psychiatric evaluation - Chief Complaint Chief complaint: "I had a headache." - History of Present Psychiatric Illness 33 y/o. AA female who presented to the ER for possible overdose. Today the patient was calm and cooperative during the assessment. She stated that she "took extra pills" for a headache prior to coming to the ER. She stated that she isn't aware of what she actually ingested. She is adamant that she wasn't trying to kill herself. She says she could not walk after taking the pills and her sister called 911.She denies any previous suicide attempts in the past. She stated that she has a hx of "schizophrenia and bipolar" since age 13, and is seen at [facility] for peer support M-F. She denies SI/HI's and AVH's. Medications and Allergies Allergies Allergy/AdvReac Type Severity Reaction Status Date / Time turkey Allergy Unknown Verified 07/04/18 19:32 Home Medications Medication Instructions Recorded Confirmed Last Taken Type Perphenazine 16 mg PO DAILY 11/25/15 08/15/18 1 Day Ago History ~09/17/16 OXcarbazepine [Oxtellar XR] 150 mg PO QDAY #30 tab.er.24h 09/19/16 08/15/18 Unknown Rx OXcarbazepine [Oxtellar XR] 600 mg PO DAILY #30 tab.er.24h 09/19/16 08/15/18 08/12/18 Rx diphenhydrAMINE [Benadryl CAP] 50 mg PO HS #10 capsule 09/19/16 08/15/18 Unknown Rx Trihexyphenidyl [Artane] 2 mg PO TID 12/06/16 08/15/18 Unknown History LORazepam [Ativan] 1 mg PO BID 05/22/17 08/15/18 Unknown History Topiramate [Topamax] 100 mg PO BID 05/22/17 08/15/18 Unknown History levETIRAcetam [Keppra TAB] 750 mg PO BID #60 tablet 05/01/18 08/15/18 4 Days Ago Rx ~08/11/18 Active Meds: Active Medications Acetaminophen (Tylenol) 650 mg PO Q4H PRN PRN Reason: Pain MILD(1-3)/Fever >100.5/TONY Enoxaparin Sodium (Lovenox) 40 mg SUB-Q QDAY@2200 [facility] Last Admin: 08/13/18 21:56 Dose: 40 mg Documented by: Famotidine (Pepcid) 20 mg PO BID [facility] Last Admin: 08/14/18 09:31 Dose: 20 mg Documented by: Hydromorphone HCl (Dilaudid) 0.25 mg IV Q3H PRN PRN Reason: Pain, Moderate (4-6) Sodium Chloride (Nacl 0.9% 1000 Ml) 1,000 mls @ 75 mls/hr IV DIRECT [facility] Ceftriaxone Sodium (Rocephin/Ns 1 Gm/50 Ml) 1 gm in 50 mls @ 100 mls/hr IV Q24HR [facility]; Protocol Last Admin: 08/14/18 09:33 Dose: Not Given Documented by: Levetiracetam (Keppra) 750 mg PO BID [facility] Last Admin: 08/14/18 09:32 Dose: 750 mg Documented by: Miscellaneous Medication (Oxcarbazepine [Oxtellar Xr]) 600 mg PO DAILY [facility] Ondansetron HCl (Zofran) 4 mg IV Q8H PRN PRN Reason: Nausea And Vomiting Sodium Chloride (Sodium Chloride Flush Syringe 10 Ml) 10 ml IV BID [facility] Last Admin: 08/14/18 09:32 Dose: Not Given Documented by: Sodium Chloride (Sodium Chloride Flush Syringe 10 Ml) 10 ml IV PRN PRN PRN Reason: LINE FLUSH Topiramate (Topamax) 100 mg PO BID [facility] Last Admin: 08/14/18 09:32 Dose: 100 mg Documented by: Trihexyphenidyl HCl (Artane) 2 mg PO TID [facility] Last Admin: 08/14/18 14:10 Dose: 2 mg Documented by: Past psychiatric history - Past Medical History Past Medical History: seizures (none in 6 months) - past Psychiatric treatment and history Psych: Schizophrenia psychiatric treatment history: She reports being diagnosed with schizophrenia and bipolar disorder around the age of 13. She states she has never smoked or drank alcohol. She attends groups daily at [facility]/peer support - Social History Social history: lives with family (lives with [place]. She was evicted fromher other sister's house 1 month ago when she refused to give her whole check to her sister) Mental Status Exam - Vital signs Last Vital Signs Temp 98.2 F 08/14/18 17:37 Pulse 68 08/14/18 17:37 Resp 18 08/14/18 17:37 BP 104/73 08/14/18 17:37 Pulse Ox 90 08/14/18 17:37 - Exam Orientation: time, place, person Affect: normal Mood: appropriate Thought content: other (no suicidal or homicidal ideation) Thought Process: Intact Perceptions: none Speech: normal rate and pattern Concentration: focused Motor activity: normal Level of consciousness: alert Memory: Intact Sleep Symptoms: None Interaction: cooperative Mini mental status exam(if necessary): 24-30 Results Result Diagrams: 08/13/18 13:19 08/13/18 13:19 All other labs normal. Assessment and Plan Assessment and plan: Impression: Hx of Schizophrenia per the patient. No overt psychosis seen with the patient. Unintentional overdose. Today the patient was calm and cooperative during the assessment. Recommendation/Plan: reevaluate 1013 criteria in 24 hours. verify her outpatient treatment and family involvement Dispo: The patient can follow up with [facility] for outpatient mental health services if 1013 is rescinded in [address] Keith Fleming.
[2018-08-14] MEDS: LOVENOX SUB-Q SCH (22:02)
--- NOTE | 2018-08-15 08:09 | Progress Note ---
Assessment and Plan Assessment and plan: Patient is a 33-year-old woman with a history of Schizophrenia, bipolar disorder, seizure disorder and morbid obesity BMI 48.6 who presented to [facility] ED with AMS after supposedly taking a double dose of her medicines the night prior to presentation and may have taken excessive medicine the morning of pres entation to the ED. Her medicines include Artane, Ativan, perphenazine, Topamax, Benadryl, Keppra and oxcarbazepine. She is unable to give a history at this time. Whether she had us intent of self harm is unknown but will be presumed. Glucose was normal in the field. I am told that Narcan was not given. No EMS record is available yet at this time. 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 Follow-up on current diagnosis of Drug Overdose, patient says it was unintentional and denies SI. No overnight events reported to me. Patient denies any chest pain, shortness breath, nausea/vomiting or severe headaches. Imaging, nursing note, chart, labs and old chart reviewed. Discussed with patient. Hospitalist Physical - Physical exam Narrative exam: Gen: WDWN, NAD, Awake, Alert, Orientated, bmi 48.6 HEENT: NCAT, EOMI, PERRL, OP Clear Neck: supple, no adenopathy, no thyromegaly, no JVD CVS/Heart: RRR, normal S1S2, pulses present bilaterally Chest/Lungs: CTA B, Symmetrical chest expansion, good air entry bilaterally GI/Abdomen: soft, NTND, good bowel sounds, no guarding or rebound /Bladder: no suprapubic tenderness, no CVA or paraspinal tenderness Extermity/Skin: no c/c/e, no obvious rash MSK: FROM x 4 Neuro: CN 2-12 grossly intact, no new focal deficits Psych: calm - Constitutional Vitals: Temp Pulse Resp BP Pulse Ox 97.3 F L 67 18 105/65 99 08/15/18 06:07 08/15/18 06:07 08/15/18 06:07 08/15/18 06:07 08/15/18 06:07 Results - Labs CBC & Chem 7: 08/13/18 13:19 08/13/18 13:19 Labs: Laboratory Last Values WBC 3.1 K/mm3 (4.5-11.0) L 08/13/18 13:19 RBC 4.30 M/mm3 (3.65-5.03) 08/13/18 13:19 Hgb 12.9 gm/dl (10.1-14.3) 08/13/18 13:19 Hct 38.4 % (30.3-42.9) 08/13/18 13:19 MCV 89 fl (79-97) 08/13/18 13:19 MCH 30 pg (28-32) 08/13/18 13:19 MCHC 34 % (30-34) 08/13/18 13:19 RDW 14.5 % (13.2-15.2) 08/13/18 13:19 Plt Count 172 K/mm3 (140-440) 08/13/18 13:19 Lymph % (Auto) 29.5 % (13.4-35.0) 08/13/18 13:19 [place] % (Auto) 10.3 % (0.0-7.3) H 08/13/18 13:19 Eos % (Auto) 1.3 % (0.0-4.3) 08/13/18 13:19 Baso % (Auto) 0.7 % (0.0-1.8) 08/13/18 13:19 Lymph # 0.9 K/mm3 (1.2-5.4) L 08/13/18 13:19 [place] # 0.3 K/mm3 (0.0-0.8) 08/13/18 13:19 Eos # 0.0 K/mm3 (0.0-0.4) 08/13/18 13:19 Baso # 0.0 K/mm3 (0.0-0.1) 08/13/18 13:19 Seg Neutrophils % 58.2 % (40.0-70.0) 08/13/18 13:19 Seg Neutrophils # 1.8 K/mm3 (1.8-7.7) 08/13/18 13:19 PT 13.1 Sec. (12.2-14.9) 08/12/18 11:43 INR 0.94 (0.87-1.13) 08/12/18 11:43 POC ABG pH 7.413 (7.35-7.45) 08/12/18 19:04 POC ABG pCO2 41.1 (35-45) 08/12/18 19:04 POC ABG pO2 76 (80-105) L 08/12/18 19:04 POC ABG HCO3 26.3 (22-26 mml/L) 08/12/18 19:04 POC ABG Total CO2 28 (23-27mmol/L) 08/12/18 19:04 POC ABG O2 Sat 95 08/12/18 19:04 POC ABG Base Excess 2 ((-2) - (+3)mmol/L) 08/12/18 19:04 21 % 08/12/18 19:04 Sodium 139 mmol/L (137-145) 08/13/18 13:19 Potassium 4.9 mmol/L (3.6-5.0) 08/13/18 13:19 Chloride 102.2 mmol/L (98-107) 08/13/18 13:19 Carbon Dioxide 22 mmol/L (22-30) 08/13/18 13:19 20 mmol/L 08/13/18 13:19 BUN 12 mg/dL (7-17) 08/13/18 13:19 0.8 mg/dL (0.7-1.2) 08/13/18 13:19 Estimated GFR > 60 ml/min 08/13/18 13:19 15 % 08/13/18 13:19 Glucose 89 mg/dL (65-100) 08/13/18 13:19 5.4 % (4-6) 08/12/18 17:38 Calcium 9.1 mg/dL (8.4-10.2) 08/13/18 13:19 Magnesium 1.40 mg/dL (1.7-2.3) L 08/12/18 11:43 0.20 mg/dL (0.1-1.2) 08/13/18 13:19 < 0.2 mg/dL (0-0.2) 08/12/18 11:43 AST 16 units/L (5-40) 08/13/18 13:19 ALT 16 units/L (7-56) 08/13/18 13:19 58 units/L (35-129) 08/13/18 13:19 92 units/L (30-135) 08/12/18 11:43 CK-MB (CK-2) < 1.0 ng/mL (0.0-4.0) 08/12/18 11:43 CK-MB (CK-2) Rel Index 1.0 (0-4) 08/12/18 11:43 7.1 g/dL (6.3-8.2) 08/13/18 13:19 4.0 g/dL (3.9-5) 08/13/18 13:19 1.3 % 08/13/18 13:19 HCG, Qual Negative (Negative) 08/12/18 11:43 Yellow (Yellow) 08/12/18 13:41 Slightly-cloudy (Clear) 08/12/18 13:41 5.0 (5.0-7.0) 08/12/18 13:41 Ur Specific [place] 1.025 (1.003-1.030) 08/12/18 13:41 <15 mg/dl mg/dL (Negative) 08/12/18 13:41 Neg mg/dL (Negative) 08/12/18 13:41 20 mg/dL (Negative) 08/12/18 13:41 Sm (Negative) 08/12/18 13:41 Pos (Negative) 08/12/18 13:41 Ur Reducing Substances Not Reportable 08/12/18 13:41 Neg (Negative) 08/12/18 13:41 Not Reportable 08/12/18 13:41 < 2.0 mg/dL (<2.0) 08/12/18 13:41 Ur Leukocyte Esterase Mod (Negative) 08/12/18 13:41 18.0 /HPF (0.0-6.0) H 08/12/18 13:41 2.0 /HPF (0.0-6.0) 08/12/18 13:41 U Epithel Cells (Auto) 2.0 /HPF (0-13.0) 08/12/18 13:41 1+ /HPF (Negative) 08/12/18 13:41 2+ /HPF 08/12/18 13:41 Urine HCG, Qual Negative (Negative) 08/12/18 13:41 Salicylates < 0.3 mg/dL (2.8-20.0) L 08/12/18 11:43 Presumptive negative 08/12/18 13:41 Presumptive negative 08/12/18 13:41 Acetaminophen < 5.0 ug/mL (10.0-30.0) L 08/12/18 11:43 Ur Barbiturates Screen Presumptive negative 08/12/18 13:41 Ur Phencyclidine Scrn Presumptive positive 08/12/18 13:41 Ur Amphetamines Screen Presumptive negative 08/12/18 13:41 U Benzodiazepines Scrn Presumptive positive 08/12/18 13:41 Presumptive negative 08/12/18 13:41 U Marijuana (THC) Screen Presumptive negative 08/12/18 13:41 Disclamer 08/12/18 13:41 Plasma/Serum Alcohol < 0.01 % (0-0.07) 08/12/18 11:43 Active Medications - Current Medications Current Medications: Generic Name Dose Route Start Last Admin Trade Name Freq PRN Reason Stop Dose Admin Acetaminophen 650 mg 08/12/18 17:33 Tylenol PO Q4H PRN Pain MILD(1-3)/Fever >100.5/TONY Enoxaparin Sodium 40 mg 08/13/18 22:00 08/14/18 22:02 Lovenox SUB-Q 40 mg QDAY@2200 MANUELA Administration Famotidine 20 mg 08/13/18 10:00 08/14/18 22:02 Pepcid PO 20 mg BID MNAUELA Administration Hydromorphone HCl 0.25 mg 08/12/18 17:33 Dilaudid IV Q3H PRN Pain, Moderate (4-6) Sodium Chloride 1,000 mls @ 75 mls/hr 08/12/18 18:00 Nacl 0.9% 1000 Ml IV DIRECT MANUELA Ceftriaxone Sodium 1 gm in 50 mls @ 100 mls/hr 08/13/18 10:00 08/14/18 09:33 Rocephin/Ns 1 Gm/50 Ml IV Not Given Q24HR MANUELA Protocol Levetiracetam 750 mg 08/13/18 10:00 08/14/18 22:03 Keppra PO 750 mg BID MANUELA Administration Miscellaneous Medication 600 mg 08/13/18 10:00 Oxcarbazepine [Oxtellar Xr] PO DAILY MANUELA Ondansetron HCl 4 mg 08/12/18 17:33 Zofran IV Q8H PRN Nausea And Vomiting Sodium Chloride 10 ml 08/12/18 22:00 08/14/18 22:03 Sodium Chloride Flush Syringe 10 Ml IV Not Given BID MANUELA Sodium Chloride 10 ml 08/12/18 17:33 Sodium Chloride Flush Syringe 10 Ml IV PRN PRN LINE FLUSH Topiramate 100 mg 08/13/18 10:00 08/14/18 22:02 Topamax PO 100 mg BID MANUELA Administration Trihexyphenidyl HCl 2 mg 08/13/18 08:00 08/14/18 20:41 Artane PO 2 mg TID MANUELA Administration
[2018-08-15] MEDS: ARTANE PO SCH ×3 (10:05→21:43)
[2018-08-15] MEDS: TOPAMAX PO SCH ×2 (10:06→21:43)
[2018-08-15] MEDS: SODIUM CHLORIDE FLUSH SYRINGE 10 ML IV SCH ×2 (10:06→21:44)
[2018-08-15] MEDS: KEPPRA PO SCH ×2 (10:07→21:44)
[2018-08-15] MEDS: PEPCID PO SCH ×2 (10:07→21:44)
[2018-08-15] MEDS: ROCEPHIN/NS 1 GM/50 ML 1 GM/50 ML BAG IV SCH (10:08)
--- NOTE | 2018-08-15 13:35 | Progress Note ---
Subjective - Reason for Consult Consult date: 08/15/18 Reason for consult: Psychiatry Follow-up - Chief Complaint Chief complaint: "I had a headache" 33 y/o. AA female who presented to the ER for possible overdose. Today the patient was calm and cooperative during the assessment. She stated that she "took extra pills" for a headache prior to coming to the ER. She stated that she isn't aware of what she actually ingested. She is adamant that she wasn't trying to kill herself. She denies any previous suicide attempts in the past. Per collateral information from her alarm signal operator Shannon Vale at [phone], she confirmed that the patient did have a headache and ingested pills. She denies that the patient was trying to kill herself when asked. She stated that the patient can return back to her home when discharged. The patient stated that she has a hx of schizophrenia and is seen at [facility] weekly. She denies SI/HI's and AVH's. Mental Status Exam - Vital signs Last Vital Signs Temp 98.2 F 08/15/18 12:40 Pulse 82 08/15/18 12:40 Resp 20 08/15/18 12:40 BP 104/76 08/15/18 12:40 Pulse Ox 97 08/15/18 12:40 - Exam Narrative exam: MSE: Appearance: calm, cooperative Behavior: regular eye contact Speech: regular rate and tone Mood: "okay" Affect: congruent to mood Thought Process: circumstantial Thought Content: denies SI/HI's and AVH's Motor Activity: sitting up in bed Cognition: A/O x3 Insight: fair Judgment: fair Assessment and Plan Impression: Hx of Schizophrenia per the patient. No overt psychosis seen with the patient. Unintentional overdose. Today the patient was calm and cooperative during the assessment. Recommendation/Plan: Rescind 1013. Dispo: The patient can follow up with [facility] for outpatient psy services. Will staff with Dr. Keith Fleming.
[2018-08-15] MEDS: LOVENOX SUB-Q SCH (21:44)
[2018-08-16] MEDS: ROCEPHIN/NS 1 GM/50 ML 1 GM/50 ML BAG IV SCH (09:16)
[2018-08-16] MEDS: KEPPRA PO SCH ×2 (09:17→22:20)
[2018-08-16] MEDS: TOPAMAX PO SCH ×2 (09:17→22:20)
[2018-08-16] MEDS: ARTANE PO SCH ×3 (09:17→22:20)
[2018-08-16] MEDS: PEPCID PO SCH ×2 (09:18→22:20)
--- NOTE | 2018-08-16 09:23 | Progress Note ---
Assessment and Plan Assessment and plan: Patient is a 33-year-old woman with a history of Schizophrenia, bipolar disorder, seizure disorder and morbid obesity BMI 48.6 who presented to [facility] ED with AMS after supposedly taking a double dose of her medicines the night prior to presentation and may have taken excessive medicine the morning of pres entation to the ED. Her medicines include Artane, Ativan, perphenazine, Topamax, Benadryl, Keppra and oxcarbazepine. She is unable to give a history at this time. Whether she had us intent of self harm is unknown but will be presumed. Glucose was normal in the field. I am told that Narcan was not given. No EMS record is available yet at this time. 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 Urine culture growing GNR==>E.coli, ok home with bactrim but BP low, d/c once bp stable off IVFs. Work up the hypotension, order ECHO, troponin, ekg and Cardiology consult REviewing medication with PharmD History Interval history: Patient was seen and examined. Follow-up on current diagnosis of Drug Overdose, patient says it was unintentional and denies SI. No overnight events reported to me. Patient denies any chest pain, shortness breath, nausea/vomiting or severe headaches. Imaging, nursing note, chart, labs and old chart reviewed. Discussed with patient. Hospitalist Physical - Physical exam Narrative exam: Gen: WDWN, NAD, Awake, Alert, Orientated, bmi 48.6 HEENT: NCAT, EOMI, PERRL, OP Clear Neck: supple, no adenopathy, no thyromegaly, no JVD CVS/Heart: RRR, normal S1S2, pulses present bilaterally Chest/Lungs: CTA B, Symmetrical chest expansion, good air entry bilaterally GI/Abdomen: soft, NTND, good bowel sounds, no guarding or rebound /Bladder: no suprapubic tenderness, no CVA or paraspinal tenderness Extermity/Skin: no c/c/e, no obvious rash MSK: FROM x 4 Neuro: CN 2-12 grossly intact, no new focal deficits Psych: calm - Constitutional Vitals: Temp Pulse Resp BP Pulse Ox 98.3 F 66 20 92/57 97 08/16/18 05:11 08/16/18 05:11 08/16/18 05:11 08/16/18 07:11 08/16/18 05:11 Results - Labs CBC & Chem 7: 08/13/18 13:19 08/13/18 13:19 Labs: Laboratory Last Values WBC 3.1 K/mm3 (4.5-11.0) L 08/13/18 13:19 RBC 4.30 M/mm3 (3.65-5.03) 08/13/18 13:19 Hgb 12.9 gm/dl (10.1-14.3) 08/13/18 13:19 Hct 38.4 % (30.3-42.9) 08/13/18 13:19 MCV 89 fl (79-97) 08/13/18 13:19 MCH 30 pg (28-32) 08/13/18 13:19 MCHC 34 % (30-34) 08/13/18 13:19 RDW 14.5 % (13.2-15.2) 08/13/18 13:19 Plt Count 172 K/mm3 (140-440) 08/13/18 13:19 Lymph % (Auto) 29.5 % (13.4-35.0) 08/13/18 13:19 [place] % (Auto) 10.3 % (0.0-7.3) H 08/13/18 13:19 Eos % (Auto) 1.3 % (0.0-4.3) 08/13/18 13:19 Baso % (Auto) 0.7 % (0.0-1.8) 08/13/18 13:19 Lymph # 0.9 K/mm3 (1.2-5.4) L 08/13/18 13:19 [place] # 0.3 K/mm3 (0.0-0.8) 08/13/18 13:19 Eos # 0.0 K/mm3 (0.0-0.4) 08/13/18 13:19 Baso # 0.0 K/mm3 (0.0-0.1) 08/13/18 13:19 Seg Neutrophils % 58.2 % (40.0-70.0) 08/13/18 13:19 Seg Neutrophils # 1.8 K/mm3 (1.8-7.7) 08/13/18 13:19 PT 13.1 Sec. (12.2-14.9) 08/12/18 11:43 INR 0.94 (0.87-1.13) 08/12/18 11:43 POC ABG pH 7.413 (7.35-7.45) 08/12/18 19:04 POC ABG pCO2 41.1 (35-45) 08/12/18 19:04 POC ABG pO2 76 (80-105) L 08/12/18 19:04 POC ABG HCO3 26.3 (22-26 mml/L) 08/12/18 19:04 POC ABG Total CO2 28 (23-27mmol/L) 08/12/18 19:04 POC ABG O2 Sat 95 08/12/18 19:04 POC ABG Base Excess 2 ((-2) - (+3)mmol/L) 08/12/18 19:04 21 % 08/12/18 19:04 Sodium 139 mmol/L (137-145) 08/13/18 13:19 Potassium 4.9 mmol/L (3.6-5.0) 08/13/18 13:19 Chloride 102.2 mmol/L (98-107) 08/13/18 13:19 Carbon Dioxide 22 mmol/L (22-30) 08/13/18 13:19 20 mmol/L 08/13/18 13:19 BUN 12 mg/dL (7-17) 08/13/18 13:19 0.8 mg/dL (0.7-1.2) 08/13/18 13:19 Estimated GFR > 60 ml/min 08/13/18 13:19 15 % 08/13/18 13:19 Glucose 89 mg/dL (65-100) 08/13/18 13:19 5.4 % (4-6) 08/12/18 17:38 Calcium 9.1 mg/dL (8.4-10.2) 08/13/18 13:19 Magnesium 1.40 mg/dL (1.7-2.3) L 08/12/18 11:43 0.20 mg/dL (0.1-1.2) 08/13/18 13:19 < 0.2 mg/dL (0-0.2) 08/12/18 11:43 AST 16 units/L (5-40) 08/13/18 13:19 ALT 16 units/L (7-56) 08/13/18 13:19 58 units/L (35-129) 08/13/18 13:19 92 units/L (30-135) 08/12/18 11:43 CK-MB (CK-2) < 1.0 ng/mL (0.0-4.0) 08/12/18 11:43 CK-MB (CK-2) Rel Index 1.0 (0-4) 08/12/18 11:43 7.1 g/dL (6.3-8.2) 08/13/18 13:19 4.0 g/dL (3.9-5) 08/13/18 13:19 1.3 % 08/13/18 13:19 HCG, Qual Negative (Negative) 08/12/18 11:43 Yellow (Yellow) 08/12/18 13:41 Slightly-cloudy (Clear) 08/12/18 13:41 5.0 (5.0-7.0) 08/12/18 13:41 Ur Specific [place] 1.025 (1.003-1.030) 08/12/18 13:41 <15 mg/dl mg/dL (Negative) 08/12/18 13:41 Neg mg/dL (Negative) 08/12/18 13:41 20 mg/dL (Negative) 08/12/18 13:41 Sm (Negative) 08/12/18 13:41 Pos (Negative) 08/12/18 13:41 Ur Reducing Substances Not Reportable 08/12/18 13:41 Neg (Negative) 08/12/18 13:41 Not Reportable 08/12/18 13:41 < 2.0 mg/dL (<2.0) 08/12/18 13:41 Ur Leukocyte Esterase Mod (Negative) 08/12/18 13:41 18.0 /HPF (0.0-6.0) H 08/12/18 13:41 2.0 /HPF (0.0-6.0) 08/12/18 13:41 U Epithel Cells (Auto) 2.0 /HPF (0-13.0) 08/12/18 13:41 1+ /HPF (Negative) 08/12/18 13:41 2+ /HPF 08/12/18 13:41 Urine HCG, Qual Negative (Negative) 08/12/18 13:41 Salicylates < 0.3 mg/dL (2.8-20.0) L 08/12/18 11:43 Presumptive negative 08/12/18 13:41 Presumptive negative 08/12/18 13:41 Acetaminophen < 5.0 ug/mL (10.0-30.0) L 08/12/18 11:43 Ur Barbiturates Screen Presumptive negative 08/12/18 13:41 Ur Phencyclidine Scrn Presumptive positive 08/12/18 13:41 Ur Amphetamines Screen Presumptive negative 08/12/18 13:41 U Benzodiazepines Scrn Presumptive positive 08/12/18 13:41 Presumptive negative 08/12/18 13:41 U Marijuana (THC) Screen Presumptive negative 08/12/18 13:41 Disclamer 08/12/18 13:41 Plasma/Serum Alcohol < 0.01 % (0-0.07) 08/12/18 11:43 Active Medications - Current Medications Current Medications: Generic Name Dose Route Start Last Admin Trade Name Freq PRN Reason Stop Dose Admin Acetaminophen 650 mg 08/12/18 17:33 Tylenol PO Q4H PRN Pain MILD(1-3)/Fever >100.5/TONY Enoxaparin Sodium 40 mg 08/13/18 22:00 08/15/18 21:44 Lovenox SUB-Q 40 mg QDAY@2200 MANUELA Administration Famotidine 20 mg 08/13/18 10:00 08/16/18 09:18 Pepcid PO 20 mg BID MANUELA Administration Hydromorphone HCl 0.25 mg 08/12/18 17:33 Dilaudid IV Q3H PRN Pain, Moderate (4-6) Sodium Chloride 1,000 mls @ 75 mls/hr 08/12/18 18:00 Nacl 0.9% 1000 Ml IV DIRECT MANUELA Ceftriaxone Sodium 1 gm in 50 mls @ 100 mls/hr 08/13/18 10:00 08/16/18 09:16 Rocephin/Ns 1 Gm/50 Ml IV 100 mls/hr Q24HR MANUELA Administration Protocol Levetiracetam 750 mg 08/13/18 10:00 08/16/18 09:17 Keppra PO 750 mg BID MANUELA Administration Miscellaneous Medication 600 mg 08/13/18 10:00 Oxcarbazepine [Oxtellar Xr] PO DAILY MANUELA Ondansetron HCl 4 mg 08/12/18 17:33 Zofran IV Q8H PRN Nausea And Vomiting Sodium Chloride 10 ml 08/12/18 22:00 08/15/18 21:44 Sodium Chloride Flush Syringe 10 Ml IV 10 ml BID MANUELA Administration Sodium Chloride 10 ml 08/12/18 17:33 Sodium Chloride Flush Syringe 10 Ml IV PRN PRN LINE FLUSH Topiramate 100 mg 08/13/18 10:00 08/16/18 09:17 Topamax PO 100 mg BID MANUELA Administration Trihexyphenidyl HCl 2 mg 08/13/18 08:00 08/16/18 09:17 Artane PO 2 mg TID MANUELA Administration
--- NOTE | 2018-08-16 11:46 | Consultation ---
History of Present Illness Consult date: 08/16/18 Requesting physician: VINITA FLORES Consult reason: hypotension History of present illness: The pt is a 33-year-old female with a past medical history of history of Schizophrenia, bipolar disorder, seizure disorder and morbid obesity. She is previously unknown to our practice. She presented to PSYCHIATRIC ED with AMS after s upposedly taking a double dose of her medicines the night prior to presentation and may have taken excessive medicine the morning of presentation to the ED. Her medications include Artane, Ativan, perphenazine, Topamax, Benadryl, Keppra and oxcarbazepine. On evaluation, she sates that her symptoms have resolved and she is feeling back to her baseline state of health. Cardiology has been consulted for hypotension. Pt denies any current cardiac complaints. She denies any known prior cardiac issues. Past History Past Medical History: seizures (none in 6 months), other (psych d/o) Social history: denies: smoking, alcohol abuse, prescription drug abuse Medications and Allergies Allergies Allergy/AdvReac Type Severity Reaction Status Date / Time turkey Allergy Unknown Verified 07/04/18 19:32 Home Medications Medication Instructions Recorded Confirmed Last Taken Type Perphenazine 16 mg PO DAILY 11/25/15 08/15/18 1 Day Ago History ~09/17/16 OXcarbazepine [Oxtellar XR] 150 mg PO QDAY #30 tab.er.24h 09/19/16 08/15/18 Unknown Rx OXcarbazepine [Oxtellar XR] 600 mg PO DAILY #30 tab.er.24h 09/19/16 08/15/18 08/12/18 Rx diphenhydrAMINE [Benadryl CAP] 50 mg PO HS #10 capsule 09/19/16 08/15/18 Unknown Rx Trihexyphenidyl [Artane] 2 mg PO TID 12/06/16 08/15/18 Unknown History LORazepam [Ativan] 1 mg PO BID 05/22/17 08/15/18 Unknown History Topiramate [Topamax] 100 mg PO BID 05/22/17 08/15/18 Unknown History levETIRAcetam [Keppra TAB] 750 mg PO BID #60 tablet 05/01/18 08/15/18 4 Days Ago Rx ~06/06/19 Active Meds: Active Medications Acetaminophen (Tylenol) 650 mg PO Q4H PRN PRN Reason: Pain MILD(1-3)/Fever >100.5/TONY Enoxaparin Sodium (Lovenox) 40 mg SUB-Q QDAY@2200 [facility] Last Admin: 08/15/18 21:44 Dose: 40 mg Documented by: Famotidine (Pepcid) 20 mg PO BID [facility] Last Admin: 08/16/18 09:18 Dose: 20 mg Documented by: Hydromorphone HCl (Dilaudid) 0.25 mg IV Q3H PRN PRN Reason: Pain, Moderate (4-6) Sodium Chloride (Nacl 0.9% 1000 Ml) 1,000 mls @ 75 mls/hr IV DIRECT MANUELA Ceftriaxone Sodium (Rocephin/Ns 1 Gm/50 Ml) 1 gm in 50 mls @ 100 mls/hr IV Q24HR [facility]; Protocol Last Admin: 08/16/18 09:16 Dose: 100 mls/hr Documented by: Levetiracetam (Keppra) 750 mg PO BID [facility] Last Admin: 08/16/18 09:17 Dose: 750 mg Documented by: Miscellaneous Medication (Oxcarbazepine [Oxtellar Xr]) 600 mg PO DAILY [facility] Ondansetron HCl (Zofran) 4 mg IV Q8H PRN PRN Reason: Nausea And Vomiting Sodium Chloride (Sodium Chloride Flush Syringe 10 Ml) 10 ml IV BID [facility] Last Admin: 08/15/18 21:44 Dose: 10 ml Documented by: Sodium Chloride (Sodium Chloride Flush Syringe 10 Ml) 10 ml IV PRN PRN PRN Reason: LINE FLUSH Topiramate (Topamax) 100 mg PO BID [facility] Last Admin: 08/16/18 09:17 Dose: 100 mg Documented by: Trihexyphenidyl HCl (Artane) 2 mg PO TID [facility] Last Admin: 08/16/18 09:17 Dose: 2 mg Documented by: Review of Systems Constitutional: no weight loss, no weight gain, no fever, no chills, no sweats Ears, nose, mouth and throat: no ear pain, no nose pain, no sinus pressure, no sinus pain Cardiovascular: no chest pain, no orthopnea, no palpitations, no rapid/irregular heart beat, no edema, no syncope, no lightheadedness, no shortness of breath, no dyspnea on exertion, no paroxysmal nocturnal dyspnea, no high blood pressure, no decreased exercise tolerance Respiratory: no cough, no shortness of breath, no dyspnea on exertion, no congestion, no wheezing, no pain on inspiration Gastrointestinal: no abdominal pain, no nausea, no vomiting, no diarrhea, no constipation, no change in bowel habits Musculoskeletal: no neck stiffness, no neck pain, no shooting arm pain, no arm numbness/tingling, no low back pain, no shooting leg pain Integumentary: no rash, no pruritis, no redness, no sores, no wounds Neurological: weakness (generalized, resolved), numbness (BLE numbness at presentation, now resolved), change in mentation (confusion at presentation, resolved now), no head injury, no paralysis, no parathesias, no tingling, no seizures, no syncope Endocrine: no cold intolerance, no heat intolerance Hematologic/Lymphatic: no easy bruising, no easy bleeding Allergic/Immunologic: no urticaria, no wheezing Physical Examination Vital Signs Pulse Ox 90 08/12/18 11:30 General appearance: no acute distress HEENT: Positive: PERRL, Normocephaly, Mucus Membranes Moist Neck: Positive: neck supple, trachea midline Cardiac: Positive: Reg Rate and Rhythm, S1/S2 Lungs: Positive: Decreased Breath Sounds Neuro: Positive: Grossly Intact Abdomen: Positive: Soft. Negative: Tender Skin: Negative: Rash, Wound Musculoskeletal: No Pain Extremities: Absent: edema Results 08/13/18 13:19 08/13/18 13:19 - Imaging and Cardiology Echo: pending EKG: report reviewed, image reviewed EKG interpretations - Telemetry EKG Rhythm: Sinus Rhythm - EKG Sinus rhythms and dysrhythmias: sinus rhythm Repolarization changes or abnormalities: nonspecific abnormality, ST segment, and/or T wave Assessment and Plan Cardiology has been consulted for evaluation of hypotension. BPs noted to be mostly 90s/50s today, pt denies any cardiac complaints. She has been diagnosed with UTI and is receiving IVF per primary. Cont IVF, obtain echo, cont to monitor on telemetry. Sara negative for AMI x 1 set, ECG with no acute ischemic changes. Further recs to follow per hospital course. The patient has been seen in conjunction with Dr. Conde who agrees with the assessment and plan of care. - Patient Problems (1) Altered mental status Current Visit: Yes Status: Resolved (2) Overdose Current Visit: Yes Status: Suspected Qualifiers: Encounter type: initial encounter Injury intent: accidental or unintentional Qualified Code(s): T50.901A - Poisoning by unspecified drugs, medicaments and biological substances, accidental (unintentional), initial encounter (3) Hypotension Current Visit: Yes Status: Acute Qualifiers: Hypotension type: unspecified hypotension type Qualified Code(s): I95.9 - Hypotension, unspecified (4) Psychiatric disorder Current Visit: Yes Status: Chronic (5) History of seizure disorder Current Visit: Yes Status: Acute (6) UTI (urinary tract infection) Current Visit: Yes Status: Acute (7) Obesity Current Visit: Yes Status: Chronic
[2018-08-16] MEDS: NACL 0.9% 1000 ML 1,000 ML IV SCH (12:15)
[2018-08-16] MEDS: SODIUM CHLORIDE FLUSH SYRINGE 10 ML IV SCH (22:15)
[2018-08-16] MEDS: LOVENOX SUB-Q SCH (22:20)
[2018-08-17] MEDS: NACL 0.9% 1000 ML 1,000 ML IV SCH ×2 (02:08→19:01)
[2018-08-17] MEDS: SODIUM CHLORIDE FLUSH SYRINGE 10 ML IV SCH ×3 (04:42→22:21)
[2018-08-17] MEDS: PEPCID PO SCH ×2 (10:21→21:23)
[2018-08-17] MEDS: KEPPRA PO SCH ×2 (10:22→21:27)
[2018-08-17] MEDS: TOPAMAX PO SCH ×2 (10:22→21:22)
[2018-08-17] MEDS: ROCEPHIN/NS 1 GM/50 ML 1 GM/50 ML BAG IV SCH (10:22)
[2018-08-17] MEDS: ARTANE PO SCH ×3 (10:22→21:22)
--- NOTE | 2018-08-17 11:20 | Progress Note ---
Assessment and Plan Echo reviewed - EF 35-40%, pseudonormalization. BPs remain low but stable and pt is currently asymptomatic. Will plan for lexiscan MPI stress test in AM to r/o ischemic CMP. NPO after MN. The patient has been seen in conjunction with Dr. Conde who agrees with the assessment and plan of care. - Patient Problems (1) Altered mental status Current Visit: Yes Status: Resolved (2) Overdose Current Visit: Yes Status: Suspected Qualifiers: Encounter type: initial encounter Injury intent: accidental or unintentional Qualified Code(s): T50.901A - Poisoning by unspecified drugs, medicaments and biological substances, accidental (unintentional), initial encounter (3) Hypotension Current Visit: Yes Status: Acute Qualifiers: Hypotension type: unspecified hypotension type Qualified Code(s): I95.9 - Hypotension, unspecified (4) Psychiatric disorder Current Visit: Yes Status: Chronic (5) History of seizure disorder Current Visit: Yes Status: Acute (6) UTI (urinary tract infection) Current Visit: Yes Status: Acute (7) Obesity Current Visit: Yes Status: Chronic (8) Cardiomyopathy Current Visit: Yes Status: Chronic Subjective Date of service: 08/17/18 Principal diagnosis: hypotension Interval history: pt resting in bed, no current cardiac complaints. states she is feeling well. Objective Last Vital Signs Temp 98.5 F 08/17/18 05:57 Pulse 69 08/17/18 00:03 Resp 18 08/17/18 05:57 BP 96/57 08/17/18 05:57 Pulse Ox 98 08/17/18 00:03 - Physical Examination General: No Apparent Distress HEENT: Positive: PERRL, Normocephaly, Mucus Membranes Moist Neck: Positive: neck supple, trachea midline Cardiac: Positive: Reg Rate and Rhythm, S1/S2 Lungs: Positive: Decreased Breath Sounds Neuro: Positive: Grossly Intact Abdomen: Positive: Soft. Negative: Tender Skin: Negative: Rash, Wound Musculoskeletal: No Pain Extremities: Absent: edema - Imaging and Cardiology EKG: report reviewed, image reviewed Echo: pending - EKG Sinus rhythms and dysrhythmias: sinus rhythm Repolarization changes or abnormalities: nonspecific abnormality, ST segment, and/or T wave
--- NOTE | 2018-08-17 14:00 | Progress Note ---
Assessment and Plan - Patient Problems (1) Acute encephalopathy Current Visit: Yes Status: Acute Plan to address problem: Most likely secondary to drug overdose has resolved. (2) History of seizure disorder Current Visit: Yes Status: Acute Plan to address problem: No current seizure. No evidence of toxicity at this time. (3) Schizophrenia Current Visit: Yes Status: Acute Qualifiers: Schizophrenia type: unspecified Qualified Code(s): F20.9 - Schizophrenia, unspecified Plan to address problem: Patient appears to be at baseline, no paranoia. No manic episodes at this time. (4) Obesity Current Visit: Yes Status: Chronic (5) Overdose Current Visit: Yes Status: Suspected Qualifiers: Encounter type: initial encounter Injury intent: accidental or unintentional Qualified Code(s): T50.901A - Poisoning by unspecified drugs, medicaments and biological substances, accidental (unintentional), initial encounter (6) Hypotension Current Visit: Yes Status: Acute Plan to address problem: At present patient continues to have hypotension 95/57. Will observe 1 more day. She is asymptomatic. Most likely secondary to beta howie. Family is to bring medicines bilaterally in for further evaluation. Should be in the discharge in a.m. (7) UTI (urinary tract infection) Current Visit: Yes Status: Acute Plan to address problem: Currently asymptomatic. Continue Rocephin. Will most likely require change to by mouth antibiotics upon discharge. History Interval history: Patient 33-year-old with a history of schizophrenia, bipolar disorder seizure disorder obesity. Presents after overdose of multiple medications including Ativan Phenazine Keppra Topamax and possible unknown med. Presented with toxic metabolic encephalopathy hypotension. Patient also found to have a urinary tract infection as well. She currently is upbeat answering questions appropriately talking about music and salt. No depression. Hospitalist Physical - Constitutional Vitals: Temp Pulse Resp BP Pulse Ox 98.2 F 83 16 104/75 96 08/17/18 12:00 08/17/18 12:00 08/17/18 12:00 08/17/18 12:00 08/17/18 12:00 General appearance: Present: no acute distress - EENT Eyes: Present: PERRL, EOM intact ENT: hearing intact, clear oral mucosa, dentition normal - Neck Neck: Present: supple, normal ROM - Respiratory Respiratory effort: normal Respiratory: bilateral: CTA - Cardiovascular Rhythm: regular Heart Sounds: Present: S1 & S2. Absent: systolic murmur, diastolic murmur - Extremities Extremities: no ischemia, pulses intact, pulses symmetrical, No edema, normal temperature, normal color, Full ROM - Abdominal General gastrointestinal: soft, non-tender, non-distended, normal bowel sounds, no hepatomegaly, no splenomegaly, no mass - Integumentary Integumentary: Present: clear, warm, erythema - Psychiatric Psychiatric: appropriate mood/affect, intact judgment & insight - Neurologic Neurologic: CNII-XII intact, focal deficits, moves all extremities Results - Labs CBC & Chem 7: 08/13/18 13:19 08/13/18 13:19 Labs: Laboratory Last Values WBC 3.1 K/mm3 (4.5-11.0) L 08/13/18 13:19 RBC 4.30 M/mm3 (3.65-5.03) 08/13/18 13:19 Hgb 12.9 gm/dl (10.1-14.3) 08/13/18 13:19 Hct 38.4 % (30.3-42.9) 08/13/18 13:19 MCV 89 fl (79-97) 08/13/18 13:19 MCH 30 pg (28-32) 08/13/18 13:19 MCHC 34 % (30-34) 08/13/18 13:19 RDW 14.5 % (13.2-15.2) 08/13/18 13:19 Plt Count 172 K/mm3 (140-440) 08/13/18 13:19 Lymph % (Auto) 29.5 % (13.4-35.0) 08/13/18 13:19 [place] % (Auto) 10.3 % (0.0-7.3) H 08/13/18 13:19 Eos % (Auto) 1.3 % (0.0-4.3) 08/13/18 13:19 Baso % (Auto) 0.7 % (0.0-1.8) 08/13/18 13:19 Lymph # 0.9 K/mm3 (1.2-5.4) L 08/13/18 13:19 [place] # 0.3 K/mm3 (0.0-0.8) 08/13/18 13:19 Eos # 0.0 K/mm3 (0.0-0.4) 08/13/18 13:19 Baso # 0.0 K/mm3 (0.0-0.1) 08/13/18 13:19 Seg Neutrophils % 58.2 % (40.0-70.0) 08/13/18 13:19 Seg Neutrophils # 1.8 K/mm3 (1.8-7.7) 08/13/18 13:19 PT 13.1 Sec. (12.2-14.9) 08/12/18 11:43 INR 0.94 (0.87-1.13) 08/12/18 11:43 POC ABG pH 7.413 (7.35-7.45) 08/12/18 19:04 POC ABG pCO2 41.1 (35-45) 08/12/18 19:04 POC ABG pO2 76 (80-105) L 08/12/18 19:04 POC ABG HCO3 26.3 (22-26 mml/L) 08/12/18 19:04 POC ABG Total CO2 28 (23-27mmol/L) 08/12/18 19:04 POC ABG O2 Sat 95 08/12/18 19:04 POC ABG Base Excess 2 ((-2) - (+3)mmol/L) 08/12/18 19:04 21 % 08/12/18 19:04 Sodium 139 mmol/L (137-145) 08/13/18 13:19 Potassium 4.9 mmol/L (3.6-5.0) 08/13/18 13:19 Chloride 102.2 mmol/L (98-107) 08/13/18 13:19 Carbon Dioxide 22 mmol/L (22-30) 08/13/18 13:19 20 mmol/L 08/13/18 13:19 BUN 12 mg/dL (7-17) 08/13/18 13:19 0.8 mg/dL (0.7-1.2) 08/13/18 13:19 Estimated GFR > 60 ml/min 08/13/18 13:19 15 % 08/13/18 13:19 Glucose 89 mg/dL (65-100) 08/13/18 13:19 5.4 % (4-6) 08/12/18 17:38 Calcium 9.1 mg/dL (8.4-10.2) 08/13/18 13:19 Magnesium 1.40 mg/dL (1.7-2.3) L 08/12/18 11:43 0.20 mg/dL (0.1-1.2) 08/13/18 13:19 < 0.2 mg/dL (0-0.2) 08/12/18 11:43 AST 16 units/L (5-40) 08/13/18 13:19 ALT 16 units/L (7-56) 08/13/18 13:19 58 units/L (35-129) 08/13/18 13:19 92 units/L (30-135) 08/12/18 11:43 CK-MB (CK-2) < 1.0 ng/mL (0.0-4.0) 08/12/18 11:43 CK-MB (CK-2) Rel Index 1.0 (0-4) 08/12/18 11:43 < 0.010 ng/mL (0.00-0.029) 08/16/18 09:41 7.1 g/dL (6.3-8.2) 08/13/18 13:19 4.0 g/dL (3.9-5) 08/13/18 13:19 1.3 % 08/13/18 13:19 HCG, Qual Negative (Negative) 08/12/18 11:43 Yellow (Yellow) 08/12/18 13:41 Slightly-cloudy (Clear) 08/12/18 13:41 5.0 (5.0-7.0) 08/12/18 13:41 Ur Specific [place] 1.025 (1.003-1.030) 08/12/18 13:41 <15 mg/dl mg/dL (Negative) 08/12/18 13:41 Neg mg/dL (Negative) 08/12/18 13:41 20 mg/dL (Negative) 08/12/18 13:41 Sm (Negative) 08/12/18 13:41 Pos (Negative) 08/12/18 13:41 Ur Reducing Substances Not Reportable 08/12/18 13:41 Neg (Negative) 08/12/18 13:41 Not Reportable 08/12/18 13:41 < 2.0 mg/dL (<2.0) 08/12/18 13:41 Ur Leukocyte Esterase Mod (Negative) 08/12/18 13:41 18.0 /HPF (0.0-6.0) H 08/12/18 13:41 2.0 /HPF (0.0-6.0) 08/12/18 13:41 U Epithel Cells (Auto) 2.0 /HPF (0-13.0) 08/12/18 13:41 1+ /HPF (Negative) 08/12/18 13:41 2+ /HPF 08/12/18 13:41 Urine HCG, Qual Negative (Negative) 08/12/18 13:41 Salicylates < 0.3 mg/dL (2.8-20.0) L 08/12/18 11:43 Presumptive negative 08/12/18 13:41 Presumptive negative 08/12/18 13:41 Acetaminophen < 5.0 ug/mL (10.0-30.0) L 08/12/18 11:43 Ur Barbiturates Screen Presumptive negative 08/12/18 13:41 Ur Phencyclidine Scrn Presumptive positive 08/12/18 13:41 Ur Amphetamines Screen Presumptive negative 08/12/18 13:41 U Benzodiazepines Scrn Presumptive positive 08/12/18 13:41 Presumptive negative 08/12/18 13:41 U Marijuana (THC) Screen Presumptive negative 08/12/18 13:41 Disclamer 08/12/18 13:41 Plasma/Serum Alcohol < 0.01 % (0-0.07) 08/12/18 11:43 Active Medications - Current Medications Current Medications: Generic Name Dose Route Start Last Admin Trade Name Freq PRN Reason Stop Dose Admin Acetaminophen 650 mg 08/12/18 17:33 Tylenol PO Q4H PRN Pain MILD(1-3)/Fever >100.5/TONY Enoxaparin Sodium 40 mg 08/13/18 22:00 08/16/18 22:20 Lovenox SUB-Q 40 mg QDAY@2200 MANUELA Administration Famotidine 20 mg 08/13/18 10:00 08/17/18 10:21 Pepcid PO 20 mg BID MANUELA Administration Hydromorphone HCl 0.25 mg 08/12/18 17:33 Dilaudid IV Q3H PRN Pain, Moderate (4-6) Sodium Chloride 1,000 mls @ 75 mls/hr 08/12/18 18:00 08/17/18 02:08 Nacl 0.9% 1000 Ml IV 75 mls/hr DIRECT MANUELA Administration Ceftriaxone Sodium 1 gm in 50 mls @ 100 mls/hr 08/13/18 10:00 08/17/18 10:22 Rocephin/Ns 1 Gm/50 Ml IV 100 mls/hr Q24HR MANUELA Administration Protocol Levetiracetam 750 mg 08/13/18 10:00 08/17/18 10:22 Keppra PO 750 mg BID MANUELA Administration Miscellaneous Medication 600 mg 08/13/18 10:00 Oxcarbazepine [Oxtellar Xr] PO DAILY MANUELA Ondansetron HCl 4 mg 08/12/18 17:33 Zofran IV Q8H PRN Nausea And Vomiting Sodium Chloride 10 ml 08/12/18 22:00 08/17/18 10:23 Sodium Chloride Flush Syringe 10 Ml IV 10 ml BID MANUELA Administration Sodium Chloride 10 ml 08/12/18 17:33 Sodium Chloride Flush Syringe 10 Ml IV PRN PRN LINE FLUSH Topiramate 100 mg 08/13/18 10:00 08/17/18 10:22 Topamax PO 100 mg BID MANUELA Administration Trihexyphenidyl HCl 2 mg 08/13/18 08:00 08/17/18 10:22 Artane PO 2 mg TID MANUELA Administration
[2018-08-17] MEDS: LOVENOX SUB-Q SCH (21:22)
[2018-08-17] MEDS: OXCARBAZEPINE PO SCH (21:23)
[2018-08-18] MEDS ORDERED: LEXISCAN IV ONE ×2 (08:37→08:38)
[2018-08-18] MEDS: OXCARBAZEPINE PO SCH (11:01)
[2018-08-18] MEDS: PEPCID PO SCH (11:01)
[2018-08-18] MEDS: KEPPRA PO SCH (11:01)
[2018-08-18] MEDS: TOPAMAX PO SCH (11:01)
[2018-08-18] MEDS: ROCEPHIN/NS 1 GM/50 ML 1 GM/50 ML BAG IV SCH (11:02)
[2018-08-18] MEDS: ARTANE PO SCH ×2 (11:08→13:10)
[2018-08-18] MEDS: SODIUM CHLORIDE FLUSH SYRINGE 10 ML IV SCH (11:08)
--- NOTE | 2018-08-18 11:26 | Progress Note ---
Assessment and Plan S/p lexiscan MPI stress test this morning which was negative for ischemia, EF 47%. BPs appear to be improving and pt appears clinically and hemodynamically stable. Can consider addition of GDMT for CMP (BB and/or ACEI/ARB) if BPs permit. Nothing further to add from cardiac perspective at this time. Will sign off. Recommend follow up in our office with Dr. Conde within 1-2 weeks of hospital discharge ([phone]). The patient has been seen in conjunction with Dr. Conde who agrees with the assessment and plan of care. - Patient Problems (1) Altered mental status Current Visit: Yes Status: Resolved (2) Overdose Current Visit: Yes Status: Suspected Qualifiers: Encounter type: initial encounter Injury intent: accidental or unintentional Qualified Code(s): T50.901A - Poisoning by unspecified drugs, medicaments and biological substances, accidental (unintentional), initial encounter (3) Hypotension Current Visit: Yes Status: Acute Qualifiers: Hypotension type: unspecified hypotension type Qualified Code(s): I95.9 - Hypotension, unspecified (4) Psychiatric disorder Current Visit: Yes Status: Chronic (5) History of seizure disorder Current Visit: Yes Status: Acute (6) UTI (urinary tract infection) Current Visit: Yes Status: Acute (7) Obesity Current Visit: Yes Status: Chronic (8) Cardiomyopathy Current Visit: Yes Status: Chronic Subjective Date of service: 08/18/18 Principal diagnosis: AMS Interval history: pt for stress test today, no current cardiac complaints. states she is feeling well. Objective Last Vital Signs Temp 98.7 F 08/18/18 04:47 Pulse 77 08/18/18 04:47 Resp 16 08/18/18 04:47 BP 112/62 08/18/18 09:05 Pulse Ox 98 08/18/18 04:47 - Physical Examination General: No Apparent Distress HEENT: Positive: PERRL, Normocephaly, Mucus Membranes Moist Neck: Positive: neck supple, trachea midline Cardiac: Positive: Reg Rate and Rhythm, S1/S2 Lungs: Positive: Decreased Breath Sounds Neuro: Positive: Grossly Intact Abdomen: Positive: Soft. Negative: Tender Skin: Negative: Rash, Wound Musculoskeletal: No Pain Extremities: Absent: edema - Imaging and Cardiology EKG: report reviewed, image reviewed Echo: report reviewed ( EF 35-40%, pseudonormalization. ) - EKG Sinus rhythms and dysrhythmias: sinus rhythm Repolarization changes or abnormalities: nonspecific abnormality, ST segment, and/or T wave
[2018-08-18] MEDS: NACL 0.9% 1000 ML 1,000 ML IV SCH (12:36)
[2018-08-18 12:42] VITALS: BP 93/60
--- NOTE | 2018-08-18 12:52 | Discharge Summary ---
Providers - Providers Date of Admission: 08/12/18 15:51 Date of discharge: 08/18/18 Attending physician: ELIAS MANZANO 08/12/18 Consult to Case Management [CONS] Routine Services Needed at Discharge: Nursing Care Attendant Notified:: copy left for cm 08/12/18 17:35 Consult to Mental Health [CONS] Routine Reason For Exam: accidental drug ingestion Place consult to:: MIQUEL Notified:: MIQUEL Phone number called:: [phone] Was contact made?: Yes If yes, spoke with:: MIQUEL Time called:: 08:03 08/16/18 09:29 Consult to Physician [CONS] Routine Comment: Consulting Provider: CHUCHO PÉREZ Physician Instructions: Reason For Exam: hypotension [facility] Reason for admission: drug overdose with prescription medications Condition: Stable Pertinent studies: Echocardiogram and stress thallium Stress test is normal Echocardiogram shows ejection fraction of 35-40% with diastolic dysfunction showing pseudo-normalization Hospital course: Patient was admitted for lethargy and with a diagnosis of overdose with multiple home medications Apparently there was no suicidal or homicidal ideations Her mental status subsequently resolved , cardiology consult was obtained due to patient complaining of chest pain and this morning patient had a stress thallium which was negative, and patient was cleared for discharge by cardiology, patient is alert and oriented offers no specific complaints. Patient to be discharged home and she'll follow-up with her psychiatrist she is medically stable at the time of discharge Disposition: DC-[id number] TO HOME OR SELFCARE - Discharge Diagnoses (1) Acute encephalopathy Status: Acute Comment: Resolved (2) History of seizure disorder Status: Chronic Comment: Continue home medications (3) Hypotension Status: Acute Qualifiers: Hypotension type: unspecified hypotension type Comment: Resolved (4) Schizophrenia Status: Acute Qualifiers: Schizophrenia type: unspecified Qualified Code(s): F20.9 - Schizophrenia, unspecified (5) UTI (urinary tract infection) Status: Acute Qualifiers: Urinary tract infection type: acute cystitis Hematuria presence: without hematuria Qualified Code(s): N30.00 - Acute cystitis without hematuria Comment: Patient received 4 days of IV antibiotic and that should be sufficient (6) Cardiomyopathy Status: Chronic Comment: Patient was being seen by restaurant line server and no diuretic was prescribed and beta howie was discontinued as the patient was hypotensive yesterday (7) Obesity Status: Chronic Core Measure Documentation - Palliative Care Palliative Care/ Comfort Measures: Not Applicable - Core Measures Any of the following diagnoses?: none Exam - Constitutional Vitals: Temp Pulse Resp BP Pulse Ox 98.3 F 80 20 93/60 100 08/18/18 12:20 08/18/18 12:20 08/18/18 12:20 08/18/18 12:20 08/18/18 12:20 General appearance: Present: no acute distress, obese - EENT Eyes: Present: PERRL, EOM intact ENT: hearing intact, clear oral mucosa - Neck Neck: Present: supple, normal ROM - Respiratory Respiratory effort: normal Respiratory: bilateral: CTA - Cardiovascular Rhythm: regular Heart Sounds: Present: S1 & S2 - Extremities Extremities: No edema - Abdominal General gastrointestinal: Present: soft, non-tender. Absent: hepatomegaly, splenomegaly - Rectal Rectal Exam: deferred - Integumentary Integumentary: Present: clear - Musculoskeletal Musculoskeletal: strength equal bilaterally - Psychiatric Psychiatric: appropriate mood/affect - Neurologic Neurologic: CNII-XII intact, no focal deficits Plan Activity: no restrictions, advance as tolerated Weight Bearing Status: Full Weight Bearing Diet: regular, low fat, low cholesterol, low salt Special Instructions: restrict fluid intake to (1500 ml/day) Additional Instructions: Follow-up with psychiatry in 1 week Follow up with: BHAVIN TOMPKINSLEXINGTON MD LEEANNE [Primary Care Provider] - 3-5 Days BATSHEVA SORIA MD [Staff Physician] - 14 Days Prescriptions: Trihexyphenidyl [Artane] 2 mg PO TID #90 tablet levETIRAcetam [Keppra TAB] 750 mg PO BID 30 Days #60 tablet OXcarbazepine [Oxtellar XR] 600 mg PO DAILY #30 tab.er.24h Topiramate [Topamax] 100 mg PO BID #60 tablet
--- NOTE | 2018-08-18 23:47 | Treadmill Report ---
IV LEXISCAN MYOCARDIAL PERFUSION IMAGING This being performed on a 33-year-old female with atypical chest pains and morbidly obese. 1-day rest/stress myocardial perfusion imaging was performed using technetium pyrophosphate sestamibi. This is technically very limited study. There are mild mid anterior and apical inferior defects, which appeared to be fixed. Left ventricular size appeared to be dilated with calculated end-diastolic volume of 228 mL. Ejection fraction was calculated to be 47% post gated. Transient ischemic dilation ratio was found to be 1.09. FINAL IMPRESSION: 1. This is a technically limited study. 2. Dilated left ventricle with fixed defects noted. This can be artifactual. No significant ischemia noted. 3. Ejection fraction was calculated to be 47%. Prognostically, this was felt to be moderate-risk study. JOB# [id number] STACEY/MANDY
== END 2018-08-18 14:45 | disposition home or self-care (01) | DRG 871 ==
LOC: ED 11:23 → 3A 15:51
PROVIDERS: ADMIT Internal Medicine; ATTEND Internal Medicine
PROC: 4A033R1 Measurement of Arterial Saturation, Peripheral, Percutaneous Approach (ICD-10-PCS; principal; 2018-08-12)
DX: A41.9 Sepsis, unspecified organism (principal); G92 Toxic encephalopathy; T40.991A Poisoning by other psychodysleptics [hallucinogens], accidental (unintentional), initial encounter; T42.4X1A Poisoning by benzodiazepines, accidental (unintentional), initial encounter; F20.9 Schizophrenia, unspecified; N39.0 Urinary tract infection, site not specified; Z68.43 Body mass index [BMI] 50.0-59.9, adult; E66.01 Morbid (severe) obesity due to excess calories; G40.909 Epilepsy, unspecified, not intractable, without status epilepticus; F16.10 Hallucinogen abuse, uncomplicated; E83.42 Hypomagnesemia; Y92.89 Other specified places as the place of occurrence of the external cause; I42.9 Cardiomyopathy, unspecified
CPT/HCPCS: 36415; 36600; 71045; 78452; 80048; 80053; 80076; 80307; 80320; 81001; 81025; 82550; 82553; 82803; 83036; 83735; 84484; 84703; 85025; 85610; 87040; 87076; 87086; 87186; 93005; 93010; 93017; 93306; 96365; 96375; G0378; A9502; G0480; J0696; J1650; J2310; J2785; J3475; J7030

== ENCOUNTER 2018-10-14 03:12 | Emergency (ER) | payer MEDICAID ==
[2018-10-14] MEDS ORDERED: TORADOL IM ONE (04:06)
[2018-10-14] MEDS ORDERED: TORADOL ONE (04:09)
--- NOTE | 2018-10-14 04:49 | XRay Report ---
Bilateral knees, 4 views INDICATION: Pain following fall tonight FINDINGS: The joint spaces are intact. No joint effusion is seen. No fracture identified. There is sl ight medial spurring bilaterally. No erosions or chondrocalcinosis. No significant abnormality. Signer Name: Abdias Madrigal MD Signed: 10/14/2018 4:45 AM Workstation Name: [id number]
[2018-10-14] MEDS ORDERED: IBUPROFEN PO ONE (05:11)
--- NOTE | 2018-10-14 05:11 | Emergency Department Report ---
ED Extremity Problem HPI - General Chief complaint: Overdose Stated complaint: BILATERAL KNEE PAIN Time Seen by Provider: 10/14/18 04:06 Source: patient, EMS Mode of arrival: Wheelchair Limitations: No Limitations - History of Present Illness Initial comments: Patient is a 33-year-old female who has a past medical history of bipolar disorder and schizophrenia and seizures who is presenting status post fall. Patient states she recently had taken a double dose of multiple of her medications 24 hours ago. Patient states this made her very sleepy and she fell from the bed onto her knees bilaterally. Patient's states the pain is a 10 out of 10 in severity is worse with standing and walking. Patient presented to the emergency department via EMS. The patient also states she has some chest discomfort shortness of breath. Patient had a stress test earlier this year which was negative. - Related Data Home Medications Medication Instructions Recorded Confirmed Last Taken Perphenazine 16 mg PO DAILY 11/25/15 08/15/18 1 Day Ago ~09/17/16 LORazepam [Ativan] 1 mg PO BID 05/22/17 08/15/18 Unknown Diazepam 10 mg PO QHS 08/17/18 08/17/18 Unknown Prazosin [Minipress] 2 mg PO QHS 08/17/18 08/17/18 Unknown QUEtiapine [SEROquel] 100 mg PO BID 08/17/18 08/17/18 Unknown metFORMIN 500 mg PO BID 08/17/18 08/17/18 Unknown Previous Rx's Medication Instructions Recorded Last Taken Type OXcarbazepine [Oxtellar XR] 150 mg PO QDAY #30 tab.er.24h 09/19/16 Unknown Rx diphenhydrAMINE [Benadryl CAP] 50 mg PO HS #10 capsule 09/19/16 Unknown Rx levETIRAcetam [Keppra TAB] 750 mg PO BID #60 tablet 05/01/18 4 Days Ago Rx ~08/11/18 OXcarbazepine [Oxtellar XR] 0 mg PO DAILY #30 08/18/18 Unknown Rx OXcarbazepine [Oxtellar XR] 600 mg PO DAILY #30 tab.er.24h 08/18/18 Unknown Rx Topiramate [Topamax] 100 mg PO BID #60 tablet 08/18/18 Unknown Rx Trihexyphenidyl [Artane] 2 mg PO TID #90 tablet 08/18/18 Unknown Rx levETIRAcetam [Keppra TAB] 750 mg PO BID 30 Days #60 tablet 08/18/18 Unknown Rx Allergies Allergy/AdvReac Type Severity Reaction Status Date / Time turkey Allergy Unknown Verified 07/04/18 19:32 ED Review of Systems ROS: Stated complaint: BILATERAL KNEE PAIN Other details as noted in HPI Comment: All other systems reviewed and negative ED Past Medical Hx - Past Medical History Previous Medical History?: Yes Hx Hypertension: No Hx Heart Attack/AMI: No Hx Congestive Heart Failure: No Hx Diabetes: No Hx Deep Vein Thrombosis: No Hx Pulmonary Embolism: No Hx Liver Disease: No Hx Renal Disease: No Hx Sickle Cell Disease: No Hx Seizures: Yes Hx Kidney Stones: No Hx Psychiatric Treatment: Yes (Pt currently has a therapist and psychiatrist) Hx Asthma: No Hx COPD: No Hx Tuberculosis: No Hx Dementia: No Additional medical history: Schizophrenia/bipolar. OBESITY - Surgical History Past Surgical History?: No Hx Coronary Stent: No Hx Pacemaker: No Hx Internal Defibrillator: No Hx Cholecystectomy: No Hx Appendectomy: No Hx Breast Surgery: No - Social History Smoking Status: Current Every Day Smoker Substance Use Type: None - Medications Home Medications: Home Medications Medication Instructions Recorded Confirmed Last Taken Type Perphenazine 16 mg PO DAILY 11/25/15 08/15/18 1 Day Ago History ~09/17/16 OXcarbazepine [Oxtellar XR] 150 mg PO QDAY #30 tab.er.24h 09/19/16 08/15/18 Unknown Rx diphenhydrAMINE [Benadryl CAP] 50 mg PO HS #10 capsule 09/19/16 08/15/18 Unknown Rx LORazepam [Ativan] 1 mg PO BID 05/22/17 08/15/18 Unknown History levETIRAcetam [Keppra TAB] 750 mg PO BID #60 tablet 05/01/18 08/15/18 4 Days Ago Rx ~08/11/18 Diazepam 10 mg PO QHS 08/17/18 08/17/18 Unknown History Prazosin [Minipress] 2 mg PO QHS 08/17/18 08/17/18 Unknown History QUEtiapine [SEROquel] 100 mg PO BID 08/17/18 08/17/18 Unknown History metFORMIN 500 mg PO BID 08/17/18 08/17/18 Unknown History OXcarbazepine [Oxtellar XR] 0 mg PO DAILY #30 08/18/18 Unknown Rx OXcarbazepine [Oxtellar XR] 600 mg PO DAILY #30 tab.er.24h 08/18/18 Unknown Rx Topiramate [Topamax] 100 mg PO BID #60 tablet 08/18/18 Unknown Rx Trihexyphenidyl [Artane] 2 mg PO TID #90 tablet 08/18/18 Unknown Rx levETIRAcetam [Keppra TAB] 750 mg PO BID 30 Days #60 tablet 08/18/18 Unknown Rx ED Physical Exam - General Limitations: No Limitations General appearance: alert, in no apparent distress - Head Head exam: Present: atraumatic, normocephalic - Eye Eye exam: Present: normal appearance - ENT ENT exam: Present: mucous membranes moist - Neck Neck exam: Present: normal inspection - Respiratory Respiratory exam: Present: normal lung sounds bilaterally. Absent: respiratory distress, wheezes, rales, rhonchi - Cardiovascular Cardiovascular Exam: Present: regular rate, normal rhythm. Absent: systolic murmur, diastolic murmur, rubs, gallop - GI/Abdominal GI/Abdominal exam: Present: soft, normal bowel sounds. Absent: distended, tenderness, guarding, rebound - Extremities Exam Extremities exam: Present: normal inspection, tenderness. Absent: full ROM (patient had difficulty standing and keeping her knees fully extended.), joint swelling - Back Exam Back exam: Present: normal inspection - Neurological Exam Neurological exam: Present: alert, oriented X3 - Psychiatric Psychiatric exam: Present: normal affect, normal mood - Skin Skin exam: Present: warm, dry, intact, normal color. Absent: rash ED Course Vital Signs 10/14/18 10/14/18 04:37 04:49 Pulse Rate 89 Respiratory 18 18 Rate Blood Pressure 125/80 [Left] O2 Sat by Pulse 98 98 Oximetry ED Medical Decision Making - EKG Data -: EKG Interpreted by Me EKG shows normal: sinus rhythm, axis, intervals, QRS complexes, ST-T waves Rate: normal - EKG Data Interpretation: normal EKG - Radiology Data Radiology results: report reviewed (treatment bilateral knees shows no acute process) - Medical Decision Making Patient had Alex wrap placed in bilateral knees and the patient be discharged home. Patient's were requesting shots in her knees and did have some abnormal affect. The timing of the patient's possible overdose and fall also is a question. Patient gave several different versions of the timing of what happened in the last 24 hours. The HPI is the story that was most consistent. Patient also stated that this may not have occurred 24 hours ago and was safe for several hours ago in the evening. patient told ems that she couldnt sleep. A psychosocial component may be present here Critical care attestation.: If time is entered above; I have spent that time in minutes in the direct care of this critically ill patient, excluding procedure time. ED Disposition Clinical Impression: Knee contusion Qualifiers: Encounter type: initial encounter Laterality: unspecified laterality Qualified Code(s): S80.00XA - Contusion of unspecified knee, initial encounter Disposition: DC-01 TO HOME OR SELFCARE Is pt being admited?: No Does the pt Need Aspirin: No Condition: Stable Instructions: RICE Therapy (ED) Referrals: DAVID SZYMANSKI MD [Primary Care Provider] - 3-5 Days Time of Disposition: 05:11
[2018-10-14 05:41] VITALS: BP 118/72
== END 2018-10-14 05:44 | disposition home or self-care (01) ==
LOC: ED 03:12
DX: S80.02XA Contusion of left knee, initial encounter (principal); S80.01XA Contusion of right knee, initial encounter; F17.200 Nicotine dependence, unspecified, uncomplicated; F31.9 Bipolar disorder, unspecified; F20.9 Schizophrenia, unspecified; Z79.899 Other long term (current) drug therapy; Z88.8 Allergy status to other drugs, medicaments and biological substances; W06.XXXA Fall from bed, initial encounter; Y93.89 Activity, other specified; Y92.89 Other specified places as the place of occurrence of the external cause; Y99.8 Other external cause status
CPT/HCPCS: 73560; 93005; 93010; 99284; J1885

== ENCOUNTER 2021-09-11 20:17 | Emergency (ER) | payer SELFPAY ==
[2021-09-11 21:44] VITALS: BP 126/88
== END 2021-09-12 06:35 | disposition left against medical advice (07) ==
LOC: ED 20:17
DX: M79.606 Pain in leg, unspecified (principal); Z53.21 Procedure and treatment not carried out due to patient leaving prior to being seen by health care provider

== ENCOUNTER 2021-11-30 17:34 | Emergency (ER) | payer MEDICAID ==
[2021-11-30 17:45] VITALS: BP 105/78
--- NOTE | 2021-11-30 17:52 | Event Note ---
ED Screening Note Date of service: 11/30/21 Time: 17:49 ED Screening Note: This initial assessment/diagnostic orders/clinical plan/treatment(s) is/are subject to change based on patients health status, clinical progression and re- assessment by fellow clinical providers in the ED. Further treatment and workup at subsequent clinical providers discretion. Patient/guardian urged not to elope from the ED as their condition may be serious if not clinically assessed and managed. Patient with history of "prediabetes, seizures and schizophrenia presents with chest pain and cough. Pain is constant since yesterday. Covid exposure "the other day." No uri symptoms. My Active Orders 11/30/21 17:46 HCG Qualitative, Serum Stat 11/30/21 17:47 EKG (12 lead) Stat Complete Blood Count Auto Diff Stat Lipase Stat Troponin T Stat XR chest routine 2V Urgent 11/30/21 17:48 Tech to do EKG .once Comprehensive Metabolic Panel Stat Initial orders include:
[2021-11-30 19:01] LABS: Basophils % (Auto) 0.1 % (0.0-1.8); Eosinophils # (Auto) 0.1 K/mm3 (0.0-0.4); Eosinophils % (Auto) 1.6 % (0.0-4.3); Hemoglobin 11.6 gm/dl (10.1-14.3); Lymphocytes # (Auto) 1.2 K/mm3 (1.2-5.4); Lymphocytes % (Auto) 30.5 % (13.4-35.0); Mean Corpuscular HGB Conc 33 % (30-34); Mean Corpuscular Volume 89 fl (79-97); Monocytes # (Auto) 0.3 K/mm3 (0.0-0.8); Monocytes % (Auto) 7.7 % (0.0-7.3); Platelet Count 160 K/mm3 (140-440); Red Blood Count 3.93 M/mm3 (3.65-5.03)
[2021-11-30 19:26] LABS: BUN/Creatinine Ratio 15; Blood Urea Nitrogen 12 mg/dL (7-17); Calcium 9.3 mg/dL (8.4-10.2)
[2021-11-30 19:27] LABS: Alanine Aminotransferase 10 units/L (7-56); Albumin 4.1 g/dL (3.9-5); Hemolysis Index 6
--- NOTE | 2021-11-30 20:03 | XRay Report ---
CHEST 2 VIEWS INDICATION / CLINICAL INFORMATION: Chest Pain. COMPARISON: One view of the chest from 08/12/2018. FINDINGS: SUPPORT DEVICES: None. HEART / MEDIASTINUM: No significant abnormality. LUNGS / PLEURA: No significant pulmonary abnormality. No significant pleural effusion. No pneumothora x. ADDITIONAL FINDINGS: No significant additional findings. IMPRESSION: 1. No acute abnormality of the chest. Signer Name: Jose Schreiber MD Signed: 11/30/2021 7:59 PM Workstation Name: [id number]
== END 2021-12-01 03:48 | disposition left against medical advice (07) ==
LOC: ED 17:34
DX: R07.89 Other chest pain (principal); Z53.21 Procedure and treatment not carried out due to patient leaving prior to being seen by health care provider
CPT/HCPCS: 36415; 71046; 80053; 83690; 84484; 84703; 85025; 93005